=== PATIENT | female | born 1960 | race Caucasian/White ===

== ENCOUNTER 2022-12-25 13:21 | Outpatient (REF) | payer BC, SELFPAY ==
--- NOTE | 2022-12-25 16:48 | MHC.AU.MED ---
Medical Clearance for Hearing Instrumentation Date: 12/25/22 Patient Name: Juliana Boyd Date of : 1960 Primary Care Provider: Referring Provider: Pita Greene MD We have seen your patient on 12/25/22 and have determined that they are a candidate for amplification (See accompanying report). Specifically, they would benefit from: Hearing aid use in the left ear There is a statute that addresses Medical Evaluation Requirements prior to fitting a patient with a hearing aid. According to [place] statute 265 CMR:6.03(1), (a) General. Except as provided in 265 CMR 6.03(1)(b), a claim analyst shall not sell a hearing aid unless the prospective user has presented to the claim analyst a written statement signed by a licensed physician that states that the patient's hearing loss has been medically evaluated and the patient may be considered a candidate for a hearing aid. The medical evaluation must have taken place within the preceding six months. Please note: Due to the [place] Statute referenced above, we cannot accept a signature other than that of a licensed physician. FIRE CONTROL TECHNICIAN and PA signatures cannot be accepted. I am in agreement with the above recommendation. There is no medical contraindication for hearing instrumentation. Physician Signature Date Physician Name (Printed)
--- NOTE | 2023-01-07 08:40 | MHC.AU.HA1 ---
Hearing Aid Evaluation Date of Visit: 12/25/22 Practice Management Consultant Used: Not Applicable Historical Information: Description of Hearing: Right Ear - Normal hearing thresholds 250-8000 Hz Left Ear - Moderate to moderately-severe sensorineural hearing loss Current personal amplification information, if applicable: None Hearing Aid Prescription: Based on the individual?s shared listening needs, communication environments, dexterity, desire for connectivity, and personal preferences, the following prescription for amplification has been made: Right ear: Make, Model, Color: None Left ear: Left ear prescription to be same as Right Hearing Aid above: Make, Model, Color: Phonak Virto P 70-312 Black Battery Size: 312 Environmental Attorney/Slim Tube: Power Plan of Care: Patient wishes to purchase hearing aids as prescribed Action Taken/Action Needed: Earmold Impressions Taken Hearing Instrument Fitting to be scheduled when materials arrive Comments: Patient is going through [facility]. Will send a quote. She may also have insurance coverage. Will verify ROJAS benefits Primary Diagnosis: Z01.11 Encounter for exam of ears/hearing with abnormal findings Secondary Diagnosis: H90.42 SNHL Unilateral Left Side, W/Unrestricted Contralateral Hearing Signature:Provider: Rosa Maria Leigh, [facility]
--- NOTE | 2023-01-07 09:06 | MHC.AU.ANO ---
Adult Audiological Evaluation Date of Visit: 12/25/22 Carbon Paper Coating Supervisor Used: Not Applicable Reason for Appointment: Audiologic evaluation due to decreased left ear hearing ability and tinnitus following open heart surgery. Juliana was evaluated by [facility], [facility], and [facility] since this hearing loss was experienced. She also has a history of Meniere's and BPPV and experiences intermittent dizziness. Juliana is working with [employer] [facility] to obtain a left hearing aid. Does patient feel they have a hearing loss?: Yes If Yes, Which Ear?: Left Ear Has hearing been tested previously?: Yes Previous Hearing Test Results: Left ear - Moderate to moderatley-severe sensorineural hearing loss Right ear - Normal hearing thresholds 250-8000 Hz Hearing Handicap Inventory: HHIE SCORE: 36 Based on HHIE score, patient has: Severe perceived hearing handicap Ear History: Bothersome Tinnitus/Ringing/Noises in Ears: Left Ear Ear used on the phone: Right Ear Blocked/Full Sensation in Ear(s): Both Ears History of occupational noise exposure?: No History: No Medical History: Medical History: Heart Problems, Head Injury, Mumps, Thyroid Disease Allergies: Bactrim, Erythromycin, Sulfa Medication List: Estela, Flonase, Azelastine, Evista, Calcium, Bupropion, Lamictal, Klonopin, Otoscopy: Right Ear: Unremarkable Left Ear: Unremarkable Tympanometry: Tympanometry performed due to: To assess integrity of the middle ear system Right Ear: Hypercompliant Middle Ear System (Type Ad) Left Ear: Normal Middle Ear System (Type A) Hypercompliant Middle Ear System (Type Ad) Acoustic Reflexes: Ipsilateral Probe Right: 500 Hz: Present 1000 Hz: Present 2000 Hz: Present 4000 Hz: Present Probe Left: 500 Hz: Present 1000 Hz: Present 2000 Hz: Present 4000 Hz: Present Otoacoustic Emissions Frequency Range Used: 1.6-8 kHz Right Ear Results: Present 5637-2791 Hz Reduced 1600 and 8000 Hz Analysis: Present emissions suggest normal cochlear function Rules out peripheral hearing loss greater than a mild degree Reduced/absent emissions may be consequence of middle ear dysfunction Left Ear Results: Absent 4785-7467 Hz Analysis: Reduced/Absent emissions suggest cochlear dysfunction Hearing Evaluation: Transducer(s) Used: Insert Earphones Bone Conduction Method: Conventional Audiometry Stimuli Used: Pure Tones Right Ear: Description of Hearing: Normal hearing thresholds 250-8000 Hz with 100% speech understanding at 45 dB HL Left Ear: Description of Hearing: Moderate to moderately-severe sensorineural hearing loss with 56% speech understanding at 80 dB HL Binaural Speech Discrimination ability at 80 dB HL is 96% Comparison: Compared to the most recent evaluation: Hearing is stable. Interpretation of Results: With this unilateral hearing loss, Juliana is able to hear , but have difficulty understanding, particularly when environmental noise is present or when a speaker is talking from a distance, and the right ear is turned away from the sound source. 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 Recommendations: Trial with amplification is recommended. Patient plans to contact [facility]. Medical clearance from a physician is required before fitting. Hearing Aid Fitting will be scheduled when all materials arrive. Audiological re-evaluation in one year. Diagnosis: Primary Diagnosis: Z01.11 Encounter for exam of ears/hearing with abnormal findings Secondary Diagnosis: H90.42 SNHL Unilateral Left Side, W/Unrestricted Contralateral Hearing Services Performed: Comprehensive Audiological Evaluation (CPT 04437) Diagnostic Otoacoustic Emissions (CPT 56934, 26+TC) Tympanometry and Acoustic Reflexes (CPT 23636) Signature: Provider: Rosa Maria Leigh, [facility]
--- NOTE | 2023-01-07 09:15 | MHC.AU.ANO ---
Adult Audiological Evaluation Date of Visit: 12/25/22 Design Printing Machine Set Up Operator Used: Not Applicable Reason for Appointment: Audiologic evaluation due to decreased left ear hearing ability and tinnitus following open heart surgery. Juliana was evaluated by [facility], [facility], and [facility] since this hearing loss was experienced. She also has a history of Meniere's and BPPV and experiences intermittent dizziness. Juliana is working with [employer] to obtain a left hearing aid. Does patient feel they have a hearing loss?: Yes If Yes, Which Ear?: Left Ear Has hearing been tested previously?: Yes Previous Hearing Test Results: Left ear - Moderate to moderatley-severe sensorineural hearing loss Right ear - Normal hearing thresholds 250-8000 Hz Hearing Handicap Inventory: HHIE SCORE: 36 Based on HHIE score, patient has: Severe perceived hearing handicap Ear History: Bothersome Tinnitus/Ringing/Noises in Ears: Left Ear Ear used on the phone: Right Ear Blocked/Full Sensation in Ear(s): Both Ears History of occupational noise exposure?: No History: No Medical History: Medical History: Heart Problems, Head Injury, Mumps, Thyroid Disease Allergies: Bactrim, Erythromycin, Sulfa Medication List: Estela, Flonase, Azelastine, Evista, Calcium, Bupropion, Lamictal, Klonopin, Otoscopy: Right Ear: Unremarkable Left Ear: Unremarkable Tympanometry: Tympanometry performed due to: To assess integrity of the middle ear system Right Ear: Hypercompliant Middle Ear System (Type Ad) Left Ear: Normal Middle Ear System (Type A) Hypercompliant Middle Ear System (Type Ad) Acoustic Reflexes: Ipsilateral Probe Right: 500 Hz: Present 1000 Hz: Present 2000 Hz: Present 4000 Hz: Present Probe Left: 500 Hz: Present 1000 Hz: Present 2000 Hz: Present 4000 Hz: Present Otoacoustic Emissions Frequency Range Used: 1.6-8 kHz Right Ear Results: Present 0954-6243 Hz Reduced 1600 and 8000 Hz Analysis: Present emissions suggest normal cochlear function Rules out peripheral hearing loss greater than a mild degree Reduced/absent emissions may be consequence of middle ear dysfunction Left Ear Results: Absent 5827-2931 Hz Analysis: Reduced/Absent emissions suggest cochlear dysfunction Hearing Evaluation: Transducer(s) Used: Insert Earphones Bone Conduction Method: Conventional Audiometry Stimuli Used: Pure Tones Right Ear: Description of Hearing: Normal hearing thresholds 250-8000 Hz with 100% speech understanding at 45 dB HL Left Ear: Description of Hearing: Moderate to moderately-severe sensorineural hearing loss with 56% speech understanding at 80 dB HL Binaural Speech Discrimination ability at 80 dB HL is 96% Comparison: Compared to the most recent evaluation: Hearing is stable. Interpretation of Results: With this unilateral hearing loss, Juliana is able to hear , but have difficulty understanding, particularly when environmental noise is present or when a speaker is talking from a distance, and the right ear is turned away from the sound source. 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 Trial period with left hearing aid is advised. Recommendations: Trial with amplification is recommended. Patient plans to contact [employer] [facility] [employer]. Medical clearance from a physician is required before fitting. Hearing Aid Fitting will be scheduled when all materials arrive. Audiological re-evaluation in one year. Diagnosis: Primary Diagnosis: Z01.11 Encounter for exam of ears/hearing with abnormal findings Secondary Diagnosis: H90.42 SNHL Unilateral Left Side, W/Unrestricted Contralateral Hearing Services Performed: Comprehensive Audiological Evaluation (CPT 14116) Diagnostic Otoacoustic Emissions (CPT 62346, 26+TC) Tympanometry and Acoustic Reflexes (CPT 98951) Signature: Provider: Rosa Maria Leigh, [facility]
== END 2022-12-25 13:22 | disposition home or self-care (01) ==
LOC: HO.SH 13:21
PROVIDERS: Visit Provider Internal Medicine
DX: Z01.118 Encounter for examination of ears and hearing with other abnormal findings (principal); H90.42 Sensorineural hearing loss, unilateral, left ear, with unrestricted hearing on the contralateral side
CPT/HCPCS: 92550; 92557; 92588

== ENCOUNTER 2023-02-26 13:11 | Outpatient (REF) | payer SELFPAY ==
--- NOTE | 2023-02-26 14:37 | MHC.AU.FU1 ---
Hearing Instrument Follow-Up Date of Visit: 02/26/23 Left Ear: Make, Model, Color, Serial Number: Amanda Vilao P 70-312 SN: [id number] Color: Black History Professor's Repair Warranty: 05/13/2026 History Professor's Loss and Damage Warranty: 05/13/2026 [place] Service Plan: 02/25/2023 Battery Size: 312 Direct Support Specialist/Slim Tube: Power Type of Earmold/Dome/CShell/SlipTip: Type of Wax Guard: CeruStop Dispensed By: [facility] Date of Fittin02/25/23 Follow-Up Summary: Patient seen for remote hearing aid follow up. Discussed tinnitus MASKER is not a Tinnitus BRANNON. It is only noise/soundscapes in attempt to distract from the tinnitus. She reported that she has tried various sounds without success and finds things like fans running in the bathroom maddening. Her tinnitus is more apparent in background noise. She is getting some benefit from the hearing aid but doesn't like it on the phone at all because the signal is distorted (poor discrim). We connected via remote session and I demonstrated the tinnitus masker, selecting a variety of frequencies of pink noise to trial. We settled on one and I have loaded it to a separate program rest with mask to trial. Her automatic programs do not have the TB active. She insists she had a TV and Restaurant program separate from the automatic setting after first fitting. While that is not what the record shows, she is adamant about getting them back. We discussed the importance of listening with the aid and finding out what the holes are before just throwing more programs at it. She was in agreement but has since called back to have them on. We discussed at length appropriate expectations and other ways to manage her reaction to the tinnitus (yoga, CBT) and that the hearing aid wouldn't be a quick, guaranteed fix. I decreased the global volume as she was turning down the volume x2. AFTER initial 1 hr remote session, patient called back stating that I had given her a phone number that was not [place] based and they hung up on her ([employer] Customer support). I conference called [phone] opt 2 and spoke with arborist representative Jay. She wanted the default programs she had deleted put back on the brendan. Jonathan explained the only programs that she can delete would be ones that she created, not the ones modified or put there by the director informatics. She was adamant that was not the case and wanted it back. I suggested that we end the call and reconnect remotely. I removed the tinnitus masker per her request. I then placed 3 additional programs on the hearing aid, outside of the automatic programs. Restaurant, TV, and Music to replicate what I thought she was saying she wanted. I explained that they were ones that were in the automatic program, pulled out to hard wire them in place so she can experiment in those particular settings if she felt she needed to - but that she would have to manually switch back to automatic if she left that setting. She eventually asked me to delete them because she thought I was putting back the defaults and that wasn't what she wanted. I reiterated: 1. The defaults are the same they have been 2. There weren't additional programs saved in the software from the first fitting; confirmed by Ellis 3. She likely deleted items that she herself had created and named. I removed the additional programs and she stated she would be using the automatic program having a better understanding that it truly was automatic and adaptive given the listening situation she was in. There are three different sessions saved under today's date so we can see what was done. Recommendations : Trial hearing aid in automatic setting; <del>use</del> <del>additional</del> <del>program</del> <del>for</del> <del>trial</del> <del>tinnitus</del> <del>masker</del> <del>in</del> <del>noise.</del> Don't worry about stand alone TV, restaurant program until used in real life then we can adjust. Give it time - brain needs time to adapt. Diagnosis Code(s): Primary Diagnosis: H90.42 SNHL Unilateral Left Side, W/Unrestricted Contralateral Hearing Signature: Provider: Rosa Maria Benítez, AMADEO
== END 2023-02-26 13:12 | disposition home or self-care (01) ==
LOC: HO.HAP 13:11
PROVIDERS: Visit Provider Internal Medicine
DX: Z13.89 Encounter for screening for other disorder (principal)

== ENCOUNTER 2023-04-03 09:14 | Outpatient (REF) | payer BC, SELFPAY ==
--- NOTE | 2023-04-06 13:01 | MHC.AU.HA3 ---
Hearing Instrument Follow-Up- Binaural Date of Visit: 04/03/23 Left Ear: Make, Model, Color, Serial Number: Amanda De Jesus P 70-312 SN: [id number] Color: Black Screener And Blender Operator Repair Warranty: 05/13/2026 Screener And Blender Operator Loss and Damage Warranty: 05/13/2026 [facility] Service Plan: 02/25/2023 Battery Size: 312 Co Founder And Cto/Slim Tube: Power Earmold/Dome/CShell/SlimTip: Type of Wax Guard: CeruStop Dispensed By: [facility] Date of Fittin02/25/2023 Follow-Up Summary: Juliana returned for an updated hearing test (see separate report). She has not been using the hearing aid consistently as she experienced a fall and needed immediate trauma surgery on 03/08/2023. She reported that when she did wear it, it reportedly helped; however, she requested that the original settings be restored. Restored settings from initial fit on 02/25/2023. Repaired the hearing aid to her cell phone and [employer] brendan. Confirmed that default programs that come preloaded in the brendan were accessible (i.e., Restaurant, TV, Music). Reexplained acclimatization period and the need to adapt to the base settings of the hearing aids before becoming preoccupied with the details of the brendan. Juliana requested additional follow up be scheduled to monitor her progress. Recommendations: An additional follow-up was scheduled to monitor progress. Diagnosis Code(s): Primary Diagnosis: H90.42 SNHL Unilateral Left Side, W/Unrestricted Contralateral Hearing Signature: Provider: Rosa Maria Estevez, [facility]
== END 2023-04-03 09:15 | disposition home or self-care (01) ==
LOC: HO.SH 09:14
PROVIDERS: Visit Provider Internal Medicine
DX: Z01.118 Encounter for examination of ears and hearing with other abnormal findings (principal); H90.42 Sensorineural hearing loss, unilateral, left ear, with unrestricted hearing on the contralateral side
CPT/HCPCS: 92552; 92556; 92567

== ENCOUNTER 2023-05-04 14:47 | Outpatient (REF) | payer SELFPAY ==
--- NOTE | 2023-05-05 08:10 | MHC.AU.HA3 ---
Hearing Instrument Follow-Up- Binaural Date of Visit: 05/04/23 Left Ear: Make, Model, Color, Serial Number: Amanda De Jesus P 70-312 SN: [id number] Color: Black Thermograph Operator Repair Warranty: 05/13/2026 Thermograph Operator Loss and Damage Warranty: 05/13/2026 [facility] Service Plan: 02/25/2023 Battery Size: 312 Sorter/Assay Tech/Slim Tube: Power Earmold/Dome/CShell/SlimTip: Type of Wax Guard: CeruStop Dispensed By: [facility] Date of Fittin02/25/2023 Follow-Up Summary: Juliana reported that overall she is doing much better with the hearing aid. Data logging showed about 13 hours of use per day. She reported that some times the sound quality is great and other times, it is overwhelming, especially in background noise (e.g., stores, restaurants). Increased noise management settings in ykynqt-[id number]-[id number] and fmdetdt-jr-yueyl programs. Also discussed possible fluctuating hearing loss with diagnosis of Meniere's Disease as well as influence of stress, anxiety, etc on hearing and tinnitus. Juliana reported that she has lost weight and the hearing aid now feels looser in her ear. She does not get excessive feedback and it does not work its way out of her ear at this time. Discussed option for remake; however, Juliana opted to monitor the fit for now. She confirmed the purchase of the hearing aid ([facility]) marking the end of the trial period. Recommendations: Hearing instrument maintenance in 6 months, or sooner if needed. Please contact our clinic with any questions or concerns. Diagnosis Code(s): Primary Diagnosis: H90.42 SNHL Unilateral Left Side, W/Unrestricted Contralateral Hearing Signature: Provider: Rosa Maria Estevez, [facility]
== END 2023-05-04 14:48 | disposition home or self-care (01) ==
LOC: HO.HAP 14:47
PROVIDERS: Visit Provider Internal Medicine
DX: Z13.89 Encounter for screening for other disorder (principal)

== ENCOUNTER 2023-05-07 08:41 | Outpatient (REF) | payer SELFPAY | END 2023-05-07 08:42 | disposition home or self-care (01) | LOC: HO.HAP 08:41 | PROVIDERS: Visit Provider Internal Medicine | DX: Z13.89 Encounter for screening for other disorder (principal) ==

== ENCOUNTER 2023-07-23 13:00 | Outpatient (REF) | payer SELFPAY ==
--- NOTE | 2023-07-27 11:18 | MHC.AU.HA3 ---
Hearing Instrument Follow-Up- Binaural Date of Visit: 07/23/23 Left Ear: Make, Model, Color, Serial Number: Amanda De Jesus P 70-312 SN: [id number] Color: Black Operations Professional Repair Warranty: 05/13/2026 Operations Professional Loss and Damage Warranty: 05/13/2026 [facility] Service Plan: 02/25/2023 Battery Size: 312 Type of Wax Guard: CeruStop Dispensed By: [facility] Date of Fittin02/25/2023 Follow-Up Summary: The volume wheel cover fell off the hearing aid. Called [facility] to confirm - it is just a cover and tactile support for easier use. VC wheel still functions without cover which was confirmed in office. Phonluis enrique offered three solutions - 1. Attempt to reglue cover; however, could risk glue sticking to actual volume wheel itself 2. Send for in-warranty repair 3. Use as is without cover. Juliana opted to use as is for now as she reportedly rarely uses the volume wheel and most often changes the volume through the brendan. Juliana has the volume wheel cover to keep for now. She also reported that she has been getting more feedback than usual and the hearing aid is still not fitting properly in her ear. It feels too loose and as if it is being pushed out of her ear. Otoscopy revealed significant, non-occluding cerumen in left ear. Recommended cerumen removal. Juliana will contact her PCP for wax removal. Following wax removal, she will schedule an appointment for an ear mold impression as she now wants to send the hearing aid to [facility] to be recased (will get VC wheel cover fixed at that time as well). She inquired about a loaner during that time. Advised could fit RITE with dome, if needed. Recommendations: Juliana will schedule an appointment for YAMIL following wax removal Diagnosis Code(s): Primary Diagnosis: H90.42 SNHL Unilateral Left Side, W/Unrestricted Contralateral Hearing Secondary Diagnosis: H90.42 SNHL Unilateral Left Side, W/Unrestricted Contralateral Hearing Signature: Provider: Rosa Maria Estevez, [facility]
== END 2023-07-23 13:01 | disposition home or self-care (01) ==
LOC: HO.HAP 13:00
PROVIDERS: Visit Provider Internal Medicine
DX: Z13.89 Encounter for screening for other disorder (principal)

== ENCOUNTER 2023-07-30 08:57 | Outpatient (REF) | payer SELFPAY ==
--- NOTE | 2023-07-30 14:29 | MHC.AU.HA3 ---
Hearing Instrument Follow-Up- Binaural Date of Visit: 07/30/23 Left Ear: Make, Model, Color, Serial Number: Amanda De Jesus P 70-312 SN: [id number] Color: Black Hearing Screener Repair Warranty: 05/13/2026 Hearing Screener Loss and Damage Warranty: 05/13/2026 [facility] Service Plan: 02/25/2023 Battery Size: 312 Resource Room Teacher/Slim Tube: Power Type of Wax Guard: CeruStop Dispensed By: [facility] Date of Fittin02/25/2023 Follow-Up Summary: Juliana returned following cerumen removal at her PCP's office. She now wants her hearing aid re-cased as it is reportedly not fitting well anymore. It is too loose causing feedback, moves in her ear, and some times feels as though it is being pushed out of her ear. However, fit looks good in office. Impression taken of left ear without incident. Sent impression with hearing aid to [facility] to be re-cased. Also sent volume wheel cover to be repaired. Juliana also reported high battery drain with one battery lasting 2-3 days, which was noted on the repair form. Juliana requested a loaner. Programmed an [employer] M90-312 trial device with a 2M hot plate plywood press feeder and small power dome. Reportedly comfortable and no feedback in office. Advised sound quality and physical fit will be different but should allow her some amplification while hearing aid is out for repair. She inquired about pairing loaner to cellphone and advised likely better to forgo bluetooth connection with loaner for now. Recommendations: Patient will be contacted when materials have arrived. Recommendations (Other): Will need appointment to assess fit of remade hearing aid upon arrival Diagnosis Code(s): Primary Diagnosis: H90.42 SNHL Unilateral Left Side, W/Unrestricted Contralateral Hearing Signature: Provider: Rosa Maria Estevez, [facility]
== END 2023-07-30 08:58 | disposition home or self-care (01) ==
LOC: HO.HAP 08:57
PROVIDERS: Visit Provider Internal Medicine
DX: Z13.89 Encounter for screening for other disorder (principal)

== ENCOUNTER 2023-08-20 13:52 | Outpatient (REF) | payer SELFPAY ==
--- NOTE | 2023-08-21 13:19 | MHC.AU.HA3 ---
Hearing Instrument Follow-Up- Binaural Date of Visit: 08/20/23 Left Ear: Make, Model, Color, Serial Number: Amanda De Jesus P 70-312 SN: [id number] Color: Black Aegis Operations Specialist Repair Warranty: 05/13/2026 Aegis Operations Specialist Loss and Damage Warranty: 05/13/2026 [facility] Service Plan: 02/25/2023 Battery Size: 312 Special Forces Weapons Sergeant/Slim Tube: Power Type of Wax Guard: CeruStop Dispensed By: [facility] Date of Fittin02/25/2023 Follow-Up Summary: Juliana returned to pick up attendant her remade hearing aid. However, she immediately rejected the hearing aid due to its size. She was insistent that it was bigger than the original device, is now too difficult to insert, and feels too bulky in her ear. She reported the faceplate is larger and the original hearing aid did not fill as much of the stormy bowl. She felt that it stuck out too far and the volume wheel was not in the proper place. She is concerned that she will bump the volume wheel too often when inserting/removing the hearing aid causing it to break again. Advised that it was originally sent to be remade as she previously reported it was too loose; however, Juliaan recalls that it was sent out for the broken volume wheel and could not remember the other reason. Explained that fit of the hearing aid looked appropriate from an audiological standpoint. However, Juliana opted to send the hearing aid back to [employer] for another remake. Juliana and her took pictures of this hearing aid in her ear to remember the size and how it fits. She also took a picture of the [employer] for All visual which shows pictures of the different style hearing aids on an ear. She kept the loaner hearing aid, but asked for a smaller dome because she felt the current power dome was not directed down her ear canal properly. Discussed need for larger dome to minimize feedback. Switched to medium closed dome. Juliana had some difficulty inserting the dome in office; however, once fully inserted, no feedback noted. Recommendations: Patient will be contacted when materials have arrived. Diagnosis Code(s): Primary Diagnosis: H90.42 SNHL Unilateral Left Side, W/Unrestricted Contralateral Hearing Signature: Provider: Rosa Maria Estevez, [facility]
== END 2023-08-20 13:53 | disposition home or self-care (01) ==
LOC: HO.HAP 13:52
PROVIDERS: Visit Provider Internal Medicine
DX: Z13.89 Encounter for screening for other disorder (principal)

== ENCOUNTER 2023-08-21 14:15 | Outpatient (REF) | payer SELFPAY ==
--- NOTE | 2023-08-21 15:54 | MHC.AU.HA3 ---
Hearing Instrument Follow-Up- Binaural Date of Visit: 08/21/23 Left Ear: Make, Model, Color, Serial Number: Amanda De Jesus P 70-312 SN: [id number] Color: Black Green Building Materials Distributor Repair Warranty: 05/13/2026 Green Building Materials Distributor Loss and Damage Warranty: 05/13/2026 [facility] Service Plan: 02/25/2023 Battery Size: 312 Operations General Agent/Slim Tube: Power Earmold/Dome/CShell/SlimTip: Type of Wax Guard: CeruStop Dispensed By: [facility] Date of Fittin02/25/2023 Follow-Up Summary: Migel was scheduled for a same-day appointment as a walk-in. I was in an appointment with another patient and noticed her repeatedly coming to the window and looking in, and heard her loudly speaking in the hallway. When my appointment ended 15 minutes early she asked if I was the one who was supposed to see her, I let her know I would go check the schedule as I was not aware anyone was added on and it was still 15 minutes before the time she reported she was scheduled for. I promptly brought her in once I confirmed her appointment was with me. She was extremely upset about her hearing aid needing to be remade and was crying, stating we should have better quality compliance manager as professionals and should have known the hearing aid was too large. She was also very upset because her tested positive for COVID this morning and is concerned she will soon test positive as well. I have never seen Migel so was not familiar with her hearing aid remakes, but commented that we do not know exactly how a hearing aid will fit until we actually see it in the ear. She showed me a few photos on her phone of the remake that she was unhappy with. Notes she called Amanda to complain. The reason for her visit today was to have a different dome put on her loaner EB, as she reportedly experienced feedback with the closed dome put on yesterday, and was also unhappy that the metal of the fly maker box was visible at the opening of the dome. I changed it to a small power dome, which she was able to insert without issue, no audible feedback. She wanted to try a medium power dome as well, which she was not able to insert comfortably, so we changed it back to a small. She had a harder time inserting it than she initially did, but after a few breaths was able to relax and successfully insert, no audible feedback. She noted her voice seemed echo-y but recalled her told her that is normal when acclimating to a hearing aid, which I agreed with. Apologized for the frustration she has experienced with this process, she seemed to leave the office feeling more reassured about the hearing aid but was still extremely upset regarding the COVID situation she is dealing with at home. Recommendations: Recommendations: Patient will be contacted when materials have arrived. Diagnosis Code(s): Primary Diagnosis: H90.3 Bilateral Sensorineural Hearing Loss Secondary Diagnosis: H90.42 SNHL Unilateral Left Side, W/Unrestricted Contralateral Hearing Signature: Provider: Tessy Love, CCC-A
== END 2023-08-21 14:16 | disposition home or self-care (01) ==
LOC: HO.HAP 14:15
PROVIDERS: Visit Provider Internal Medicine
DX: Z13.89 Encounter for screening for other disorder (principal)

== ENCOUNTER 2023-09-09 11:32 | Outpatient (REF) | payer SELFPAY ==
--- NOTE | 2023-09-09 12:56 | MHC.AU.HA3 ---
Hearing Instrument Follow-Up- Binaural Date of Visit: 09/09/23 Left Ear: Make, Model, Color, Serial Number: Amanda De Jesus P 70-312 SN: [id number] Color: Black Manager File Repair Warranty: 05/13/2026 Manager File Loss and Damage Warranty: 05/13/2026 [facility] Service Plan: 02/25/2023 Battery Size: 312 City Solicitor/Slim Tube: Power Earmold/Dome/CShell/SlimTip: Type of Wax Guard: CeruStop Dispensed By: [facility] Date of Fittin02/25/2023 Follow-Up Summary: Juliana was scheduled to medicinal plant picker her remade left hearing aid. I was in the room when Yana scheduled her appointment on the phone, and she offered her appointments with both Ellis and I since she has seen both of us recently, and Yana confirmed with her that the appointment she selected was with me. When I went to get Migel from the waiting room she was crying, and when I said nicole she said No, I wanted to see Tita! -- I told her I was Tita, and she said she wanted to see the person she usually sees, meaning Ellis. She did later acknowledge that she was confused about who was who and she was upset when she walked in because she had a bad physical therapy appointment earlier today. I asked if she wanted to put it in or wanted me to, but she looked at the remade hearing aid and said f it , that it was too fat and short and began crying, saying she just wanted her original hearing aid back. She put the aid in and said it was not going to work. I called Amanda in the room with Juliana and the production rep agreed to remake the hearing aid based on the original impression/print. Juliana took her loaner back, asked about an open dome but I told her that would not be appropriate for her hearing loss. She is going back to work tomorrow and is anxious to get her ITC back so it does not get knocked off by the mask like the EB does. Assured her we will call her as soon as we can, she requested to see me moving forward. Recommendations: Recommendations: Patient will be contacted when materials have arrived. Diagnosis Code(s): Primary Diagnosis: H90.42 SNHL Unilateral Left Side, W/Unrestricted Contralateral Hearing Signature: Provider: Tessy Love, CCC-A
== END 2023-09-09 11:33 | disposition home or self-care (01) ==
LOC: HO.HAP 11:32
PROVIDERS: Visit Provider Internal Medicine
DX: Z13.89 Encounter for screening for other disorder (principal)

== ENCOUNTER 2023-09-23 11:28 | Outpatient (REF) | payer SELFPAY ==
--- NOTE | 2023-09-23 13:54 | MHC.AU.HA3 ---
Hearing Instrument Follow-Up- Binaural Date of Visit: 09/23/23 Left Ear: Make, Model, Color, Serial Number: Amanda De Jesus P 70-312 SN: [id number] Color: Black Sheetmetal Patternmaker Repair Warranty: 05/13/2026 Sheetmetal Patternmaker Loss and Damage Warranty: 05/13/2026 [facility] Service Plan: 02/25/2023 Battery Size: 312 Car Seat Maker/Slim Tube: Power Earmold/Dome/CShell/SlimTip: Type of Wax Guard: CeruStop Dispensed By: [facility] Date of Fittin02/25/2023 Follow-Up Summary: Noelle was here to sweet pickled fruit maker her remade left hearing aid. I spoke with her two days ago when she called to report the loaner was beeping randomly and let her know the aid had just arrived and we'd schedule her appointment to receive it as soon as I verified it was correct, to which she said no aguilar and she was ok with the loaner until sweet pickled fruit maker of the remake. Prior to her appointment, I called Bertoluis enrique to verify that the remake was indeed made identical to the initial printing of her hearing aid. The Audiology rep I spoke with called the appropriate department and they superimposed the two scans on top of one another and reported they were identical. Noelle seemed pleased with the fit today. I verified her settings were those from prior to the remakes and ran feedback management. She asked if we needed to do Real Ear, I told her we did not as there was no change to her hearing or settings. She re-downloaded her brendan and was able to connect it to the hearing aid herself. We discussed her scheduled appointment for 11/02; she thought it was a ROJAS check and that she had cancelled it, I offered to change it from eval to ROJAS check or cancel if she didn't feel she needed it, but she would like to keep it as an eval and also do a ROJAS check at that time. She seemed satisfied with the hearing aid remake and the plan to return next month when leaving the office today. Recommendations: Recommendations: Hearing instrument follow-up as scheduled. Diagnosis Code(s): Primary Diagnosis: H90.42 SNHL Unilateral Left Side, W/Unrestricted Contralateral Hearing Signature: Provider: Tessy Love, CCC-A
== END 2023-09-23 11:29 | disposition home or self-care (01) ==
LOC: HO.HAP 11:28
PROVIDERS: Visit Provider Internal Medicine
DX: Z13.89 Encounter for screening for other disorder (principal)

== ENCOUNTER 2023-11-03 15:08 | Outpatient (REF) | payer BC, SELFPAY | END 2023-11-03 15:09 | disposition home or self-care (01) | LOC: HO.SH 15:08 | PROVIDERS: Visit Provider Internal Medicine | DX: H91.90 Unspecified hearing loss, unspecified ear (principal) | CPT/HCPCS: 92552; 92556 ==

== ENCOUNTER 2024-02-11 13:51 | Outpatient (REF) | payer SELFPAY ==
--- NOTE | 2024-02-12 08:29 | MHC.AU.HA3 ---
Hearing Instrument Follow-Up- Binaural Date of Visit: 02/11/24 Left Ear: Make, Model, Color, Serial Number: Amanda De Jesus P 70-312 SN: [id number] Color: Black Bracelet Maker Novelty Repair Warranty: 05/13/2026 Bracelet Maker Novelty Loss and Damage Warranty: 05/13/2026 [facility] Service Plan: 02/25/2023, extended to 03/28/2023 per KG Battery Size: 312 Mental Health Therapist/Slim Tube: Power Earmold/Dome/CShell/SlimTip: Type of Wax Guard: CeruStop Dispensed By: [facility] Date of Fittin02/25/2023 Follow-Up Summary: Migel visited for a hearing aid check prior to her [facility] covered services ending 02/26/24. She requested her services be extended a few months because when she first got her hearing aid she was in the hospital and then had to have several remakes, notes she might not need additional services but feels she should have them just in case and states she has already been in contact with Nohemy about this. I messaged Nohemy while Migel was here, able to extend services one month 03/28/24. Migel agreeable. She notes that the popping from 12/09 phone call has not happened again, but one time she heard the start-up beeps randomly. No other consistent issues reported. Cleaned hearing aid, ran through dehumidifier, replaced wax guard. Listening check ok, settings appropriate on [employer]. Otoscopy nonremarkable bilaterally. Assured Migel if aid restarting becomes recurrent issue we can send it out at any time. Discussed end of instrument man warranty vs end of services, aware that $50 charge will apply after service plan expires. She notes [employer] will cover unlimited hearing tests, discussed that annual tests are standard recommendation unless a new concern arises sooner. Migel noted that her hearing has steadily decreased over the last several tests, I maintained that her hearing has been stable, as we have discussed this several times. Migel agreed to return for updated test in October, a year from her last test, and knows hearing aid cleaning will be $50 even if [employer] covers the exam itself. Did not schedule additional follow up in interim. Recommendations: Recommendations: Hearing instrument follow-up or maintenance as needed. Diagnosis Code(s): Primary Diagnosis: H90.42 SNHL Unilateral Left Side, W/Unrestricted Contralateral Hearing Signature: Provider: Tessy Love, CCC-A
== END 2024-02-11 13:52 | disposition home or self-care (01) ==
LOC: HO.HAP 13:51
PROVIDERS: Visit Provider Internal Medicine
DX: Z13.89 Encounter for screening for other disorder (principal)

== ENCOUNTER 2024-03-23 11:36 | Outpatient (REF) | payer SELFPAY ==
--- NOTE | 2024-03-23 12:48 | MHC.AU.HA3 ---
Hearing Instrument Follow-Up- Binaural Date of Visit: 03/23/24 Left Ear: Make, Model, Color, Serial Number: Amanda De Jesus P 70-312 SN: [id number] Color: Black Bed Bug Exterminator Repair Warranty: 05/13/2026 Bed Bug Exterminator Loss and Damage Warranty: 05/13/2026 [facility] Service Plan: 02/25/2023, extended to 03/28/2023 per KG Battery Size: 312 Tower Technician/Slim Tube: Power Earmold/Dome/CShell/SlimTip: Type of Wax Guard: CeruStop Dispensed By: [facility] Date of Fittin02/25/2023 Follow-Up Summary: Migel is here for a final check on her hearing aid before her service plan expires, which had been extended 1 month per Nohemy at Migel's request due to being in the hospital and needing remakes after initial fitting. Migel states you get what you pay for in reference to getting the hearing aid for free through [facility]; I stated that I believe this to be a great quality device and we have many people who are fit with the same technology level, regardless of it being through [facility] or not. She said because her parents sold hearing aids she knows the brand is fine (mentioned something about Reina?) but this specific mold for her and her hearing loss is difficult to angle into her ear but that she does not want to send it in again. She said the part I told her was the vent is actually the scientist immunology (see previous voicemail note), I showed her with a vent can cleaner that it does indeed run from one end to the other and that the scientist immunology is inside of the hearing aid. She asked how it can receive sound if it is inside of the hearing aid, I explained the microphone placement and reviewed how to clean them and provided a backup brush as well as a vent can cleaner. She is familiar with changing wax guards. Migel asked what I had mentioned previously about being able to do something more than cleaning in office without sending it out-- I believe she is referring to verifying her firmware is up to date. Cleaned the aid, ran through dehumidifier, changed wax guard, and brushed mics. Listening check ok. Checked settings and firmware in [employer], all looks as it should. Otoscopy shows small amounts of nonoccluding wax bilaterally. Migel reported improved sound quality after cleaning. Migel said she will start cleaning aid weekly, I mentioned that some people like to stay on a schedule with changing wax guards such as once a month and others will only change as needed based on sound quality, that decision is up to her, but she is aware of how to clean aids properly at home and has needed tools. Reviewed java golden gate developer warranty date, loss and damage policy, and that services here will cost $50 moving forward. She asked what will happen if she gains or loses 100 lbs and it does not fit anymore, let her know that I do not believe a recasing would be covered under warranty and if that were to happen there would likely be a cost. She asked if she can come in for a hearing test and not pay anything, I let her know that the hearing test would be subject to her insurance plan and if we do anything with the hearing aid that will cost $50. She does not wish to schedule any follow up at this time but plans to return for an annual hearing test in October. Recommendations: Recommendations: Hearing instrument follow-up or maintenance as needed. Diagnosis Code(s): Primary Diagnosis: H90.42 SNHL Unilateral Left Side, W/Unrestricted Contralateral Hearing Signature: Provider: Tessy Love, [facility]
== END 2024-03-23 11:37 | disposition home or self-care (01) ==
LOC: HO.HAP 11:36
PROVIDERS: Visit Provider Internal Medicine
DX: Z13.89 Encounter for screening for other disorder (principal)

== ENCOUNTER 2024-11-07 09:34 | Outpatient (REF) | payer BC, SELFPAY ==
--- OUTSIDE RECORDS SUMMARY | 2024-11-07 10:39 | XMS_ITS | Clinical Summary ---
Author Organization [facility] [address] [facility] [address] Address [address] [place] [address] Phone Care Team Providers Care Special Education Associate Name Role Phone Pita Greene MD Primary Care Provider [phone] Encounters Date Type Department Care Team Description 09/21/2024 Telephone Gastroenterology - [address] [phone] Camila Rosado MD from Last 3 Months Social History Tobacco Use Types Packs/Day Years Used Date Smoking Tobacco: Never Assessed Comments Unknown Sex and Gender Information Value Date Recorded Sex Assigned at Not on file Legal Sex Female 8:27 PM EST Gender Identity Not on file Sexual Orientation Not on file Plan of Treatment Upcoming Encounters Date Type Department Care Team ([facility] st Contact Info) Description 11/29/2024 10:20 AM EDT Consult Gastroenterology - [address] [place] [phone] Camila Rosado MD [address] [place] [id number] Health Maintenance Due Date Last Done Comments Breast Cancer Screening 1962 DTaP,Tdap,and Td Vaccines (1 - Tdap) 1981 Cervical Cancer Screening: P ap Smear 1983 Pneumococcal Vaccine: 50+ Ye ars (1 of 1 - PCV) 01/16/2012 Zoster Vaccines (1 of 2) 01/16/2012 Colorectal Cancer Screening: Colonoscopy 08/07/2023 Depression Screening 08/07/2023 HIV Screening 08/07/2023 Hepatitis C Screening 08/07/2023 Social Influencers of Health Screening 08/07/2023 COVID-19 Vaccine ( - 2023-2 5 season) 2024 Influenza Vaccine (Season Ended) 2025 RSV Immunization Adult Patie nts (1 - 1-dose 75+ series) 2037 HIB Vaccines Aged Out No longer eligi ble based on patient's age to complete this topic HPV Vaccines Aged Out No longer eligi ble based on patient's age to complete this topic Hepatitis A Vaccines Aged Out No long er eligible based on patient's age to complete this topic Hepatitis B Vaccines Aged Out No long er eligible based on patient's age to complete this topic IPV Vaccines Aged Out No longer eligi ble based on patient's age to complete this topic MMR Vaccines Aged Out No longer eligi ble based on patient's age to complete this topic Meningococcal ACWY Vaccine Aged Out N o longer eligible based on patient's age to complete this topic Meningococcal B Vaccine Aged Out No l onger eligible based on patient's age to complete this topic Pneumococcal Vaccine: Pediat rics (0 to 5 Years) and At-Risk Patients (6 to 64 Years) Aged Out No longer eligible b ased on patient's age to complete this topic RSV Immunization Patients Un izabela 20 months Aged Out No longer eligible b ased on patient's age to complete this topic Varicella Vaccines Aged Out No longer eligible based on patient's age to complete this topic Insurance [facility] [place] [id number] [facility] Care Teams Special Education Associate Relationship Specialty Start Date End Date Pita Greene MD [address] [place] [address] PCP - General Internal Medicine 09/21/24
== END 2024-11-07 09:35 | disposition home or self-care (01) ==
LOC: HO.SH 09:34
PROVIDERS: Visit Provider Internal Medicine
DX: Z01.118 Encounter for examination of ears and hearing with other abnormal findings (principal); H90.42 Sensorineural hearing loss, unilateral, left ear, with unrestricted hearing on the contralateral side
CPT/HCPCS: 92552; 92556

== ENCOUNTER 2024-11-07 10:33 | Outpatient (REF) | payer SELFPAY ==
--- OUTSIDE RECORDS SUMMARY | 2024-11-07 12:26 | XMS_ITS | Clinical Summary ---
Author Organization [facility] [address] [facility] [address] Address [address] [place] [address] Phone Care Team Providers Care Credit Representative Name Role Phone Pita Greene MD Primary Care Provider [phone] Encounters Date Type Department Care Team Description 09/21/2024 Telephone Gastroenterology - [address] [phone] Camila Rosado MD from Last 3 Months Social History Tobacco Use Types Packs/Day Years Used Date Smoking Tobacco: Never Assessed Comments Unknown Sex and Gender Information Value Date Recorded Sex Assigned at Not on file Legal Sex Female 8:27 PM EST Gender Identity Not on file Sexual Orientation Not on file Plan of Treatment Upcoming Encounters Date Type Department Care Team ([facility] st Contact Info) Description 11/29/2024 10:20 AM EDT Consult Gastroenterology - [address] [place] [phone] Camila Rosado MD [address] [place] [phone] Health Maintenance Due Date Last Done Comments [...] patient's age to complete this topic Insurance [facility] [place] [id number] [facility] Care Teams Credit Representative Relationship Specialty Start Date End Date Pita Greene MD [address] [place] [phone] PCP - General Internal Medicine 09/21/24
--- NOTE | 2024-11-07 14:00 | MHC.AU.HA3 ---
Hearing Instrument Follow-Up- Binaural Date of Visit: 11/07/24 Left Ear: Make, Model, Color, Serial Number: Amanda De Jesus P 70-312 SN: [id number] Color: Black Bee Producer Repair Warranty: 05/13/2026 Bee Producer Loss and Damage Warranty: 05/13/2026 [facility] Service Plan: 02/25/2023, extended to 03/28/2023 per KG Battery Size: 312 Dry Can Tender/Slim Tube: Power Earmold/Dome/CShell/SlimTip: Type of Wax Guard: CeruStop Dispensed By: [facility] Date of Fittin02/25/2023 Follow-Up Summary: Migel visited for annual evaluation (hearing stable, see audiogram). When initially asked if she had concerns about a change in hearing, she said no but the hearing aid sucks . She stated she needs an ITE, sometimes finds if she pushes on the top of the hearing aid ( I make it an ITE , indicating she fills the remaining space in her stormy with her finger) she can hear people better, particularly someone she plays cards with who has a high pitched voice. Reports she does not like the brendan, found the [employer] brendan she had with [employer] hearing aids much easier to use. Notes she goes through batteries quickly, unsure of how many days, does remove battery sticker and let sit prior to use, finds Rayovac the best but mostly uses [employer]. Reports she went to [facility] for wax removal and had a hearing test there, did not get results but states they were stable with what they had on file. Also reports a middle ear infection many months ago, right ear, treated with Augmentin, she believes by PCP. Hearing stable, reviewed results. Significant improvement in left WRS today. She inquired about tympanometry, explained only test what is medically necessary and given stable hearing and no current concerns regarding middle ear I did not feel this was necessary unless she had concerns, none reported. We reviewed that ROJAS service would cost $50 out of [facility] service coverage, Migel would like hearing aid cleaned and agreed to cost. Changed wax guard, cleaned mics, ran through dehumidifier, and cleaned small amount of wax from shell. Listening check ok. Settings appropriate for hearing loss, Migel does not want adjustments to settings at this time. She opened the brendan and noted it had changed since the last time she used it so will experiment with it to see if she likes it better now. She asked if hearing can improve from hearing aid use, stated I do not expect improvements on an audiogram but amplification can help keep neural pathways strong. She asked about study published on hearing loss and dementia, discussed that there are connections between untreated hearing loss and cognitive change that we are still learning about, concern of social isolation as a result of untreated hearing loss, but current understanding is not that hearing loss is a direct cause of dementia. Migel wishes to return for annual re-evaluation and maintenance, understands she will need new PCP order, and will call if issues arise between now and then. Recommendations: Recommendations: Hearing instrument follow-up or maintenance as needed. Diagnosis Code(s): Primary Diagnosis: H90.42 SNHL Unilateral Left Side, W/Unrestricted Contralateral Hearing Signature: Provider: Tessy Love, CCC-A
== END 2024-11-07 10:34 | disposition home or self-care (01) ==
LOC: HO.HAP 10:33
PROVIDERS: Visit Provider Internal Medicine
DX: Z46.1 Encounter for fitting and adjustment of hearing aid (principal); H90.42 Sensorineural hearing loss, unilateral, left ear, with unrestricted hearing on the contralateral side
CPT/HCPCS: 92592

== ENCOUNTER 2025-03-22 10:08 | Outpatient (REF) | payer SELFPAY ==
--- OUTSIDE RECORDS SUMMARY | 2025-03-22 12:18 | XMS_ITS | Encounter Summary ---
Author Organization [facility] Address [address] [place] [address] Phone Care Team Providers Care Spar Machine Operator Name Role Phone Pita Greene MD Primary Care Provider [phone] Ty Lilly MD Unavailable [phone] Papito Izaguirre MD Unavailable [phone] Reason for Referral * MRI/CAT Scan (Emergency) - Closed Specialty Diagnoses / Procedures Referred By Leatha jose Referred To Contact Radiology Diagnoses Preop cardiovascular exam Procedures CT Cardiac CT Angio Coronary Arteries CHG CT ANGIO HRT CORNRY ART/BYPASS GRFTS CONTRST 3D POST CHG CT HEART CONTRAST EVAL CARDIAC STRUCT/MORPH Anca Rice FNP Phone: tel: fax: mailto:[email or web address] [address] Phone: tel: Referral ID Status Reason Start Date Expiration Date Visits Re quested Visits Authorized [id number] Closed 02/03/2022 03/05/2022 1 1 Encounter Details Date Type Department Care Team (Latest Contact Info) Description 02/03/2022 Ancillary Orders [facility] Division of Cardiac Surgery [address] [place] [address], 6th Floor, [address] [place] [address] Anca Rice FNP [address] [place] [address] [address] [place] [address] [email or web address] Preop cardiovascular exam Social History Tobacco Use Types Packs/Day Years Used Date Smoking Tobacco: Never Smokeless Tobacco: Never Alcohol Use Standard Drinks/Week Comments Yes 0 (1 standard drink = 0.6 oz pur e alcohol) rare/social Comments Unknown Sex and Gender Information Value Date Recorded Sex Assigned at Female 06/07/2022 12:42 PM EST Legal Sex Female 10:34 PM EDT Gender Identity Female 06/07/2022 12:42 PM EST Sexual Orientation Straight 06/07/2022 12 :42 PM EST documented as of this encounter Plan of Treatment Upcoming Encounters Date Type Department Care Team (Late st Contact Info) Description 12/26/2024 Procedure Pass [facility] Cardiac US [address] [place] [address] 03/14/2025 Procedure Pass [address] [address] 04/05/2025 8:00 AM EDT Appointment [address] [address] Delia Reyes MD [address] [place] [address] [email or web address] 05/30/2025 3:30 PM EST Office Visit [facility] [address] [place] [address], 2nd Floor, [address] [place] [address] Delia Reyes MD [address] [place] [address] [address] [place] [address] [email or web address] 01/08/2026 1:30 PM EDT Appointment [facility] Cardiac US [address] [place] [address] Papito Izaguirre MD [address] [place] [address] [address] [email or web address] 01/08/2026 3:00 PM EDT Office Visit [facility] Cardiovascular Medicine [address] [facility], 5th Floor, [address] [place] [address] Papito Izaguirre MD [address] [address] [email or web address] documented as of this encounter Results * CT CARDIAC (PRACHI) WITH AND WITHOUT CONTRAST, CT ANGIO ABDOMEN/PELVIS WITH AND WITHOUT CONTRAST (02/03/2022 3:00 PM EDT) Anatomical Region Laterality Modality Heart Computed Tomogra phy 02/03/2022 4:18 PM EDT Impressions 02/04/2022 8:49 AM EDT * 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 * CAD-RADS 0: No plaque nor stenosis. * Qualitatively preserved left ventricular systolic function. * Patent aorta and iliac arteries are not tortuous and are without circumferential calcifications. 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 * Minimal luminal diameter is 6.7 mm in the right iliac system and 7.3 mm in the left iliac system. Minimal aortic diameter is 15.2 mm. * Bulky heterogeneously enhancing uterus. RECOMMENDATIONS: 1. CAD-RADS management guidelines for symptomatic patients presenting with stable chest pain: CAD-RADS 0 - Reassurance. Consider non- atherosclerotic causes of chest pain. 2. Pelvic ultrasound to evaluate uterus. This report has been forwarded to an automated communication system which will electronically notify appropriate providers of potentially important findings. Narrative 02/04/2022 8:49 AM EDT ECG-GATED CARDIAC AND ABDOMINOPELVIC CTA WITH AND WITHOUT IV CONTRAST. COMPARISON: None ADDITIONAL HISTORY: None available at the time of dictation of this report. TECHNIQUE: ECG-gated cardiac CT with concomitant abdominopelvic CT angiography was performed pre and post contrast for planning of transcatheter percutaneous valve implantation. A delayed scan was performed of the chest, abdomen, and pelvis. Contrast was administered via power injection, followed by a saline flush, as per the image record. 3D postprocessed images were reconstructed and interpreted. FINDINGS: CARDIAC FINDINGS: Mitral valve: Sclerotic mitral valve. There is prolapse of the posterior leaflet of the mitral valve with incomplete coaptation compatible with mitral regurgitation. There is no mitral annular calcification. No aortic mitral continuity calcification. Aortic valve: Tricuspid trileaflet sclerotic valve without modifications. CARDIAC MORPHOLOGY AND FUNCTION: The left atrium is enlarged measuring 49 mm in AP diameter. Right atrial enlargement. There are no thrombi in the left ventricle. There are no regional wall motion abnormalities. No evidence of pericardial effusion. No bypass grafts are identified. RAMONA CORONARY ARTERIES: There is no evidence for anomalous coronary artery origin or course. There is right artery dominance. * Left Main (LM): no plaque; no luminal narrowing. The left main bifurcates into LAD and LCx. * Left anterior descending (LAD): no plaque; no luminal narrowing. Two patent diagonal (D) branch(es) identified. The distal LAD wraps around the apex. * Left circumflex (LCx): no plaque; no luminal narrowing. Two patent obtuse marginal (OM) branches identified. * Right coronary artery (RCA): no plaque; no luminal narrowing. The posterior descending artery (PDA) and the posterior left ventricular (PLV) branches originate from the RCA. CALCIUM SCORE: The observed Agatston Calcium Score is 0. VASCULAR FINDINGS: There is no evidence of a flap within the aorta to suggest thoracic or abdominal aortic dissection. There is a left 3 vessel aortic arch. The visualized innominate, subclavian, and carotid arteries are patent. There is an aberrant origin of right subclavian artery from the distal arch with a retroesophageal course. No evidence of diverticulum of Kommerell. There are no occlusions of the abdominal aorta, iliac arteries, or femoral arteries. There is no evidence of significant kinking of the abdominopelvic vessels. There is no evidence of circumferential calcifications. The celiac artery, superior mesenteric artery, and inferior mesenteric artery are patent. There are two right and one left patent renal arteries. Minimal arterial luminal diameters are as follows: Aorta: 15.2 mm x 15.9 mm. Right common iliac artery: 9.9 mm x 10.7 mm Right external iliac artery: 6.7 mm x 7.4 mm Right common femoral artery: 8.4 mm x 8.9 mm Left common iliac artery: 9.6 mm x 11.2 mm Left external iliac artery: 7.6 mm x 8.5 mm Left common femoral artery: 7.3 mm x 8.7 mm No venous thrombosis. NON-VASCULAR FINDINGS: Evaluation of visceral organs is not optimal due to vascular protocol technique and contrast timing. Lines/tubes : None Lungs and Airways: The central airways are patent. There is minimal atelectasis in the dependent portions of the lungs. Pleura: The pleural spaces are clear. Mediastinum: The visualized thyroid gland shows subcentimeter hypodensities likely cysts. Small hiatal hernia. There is no mediastinal, hilar, or supraclavicular lymphadenopathy. The main pulmonary artery is normal in caliber. Although contrast opacification was not optimized for pulmonary artery evaluation, there is no evidence of central filling defect. Hepatobiliary: Subcentimeter simple cyst in the left lobe of liver. No biliary ductal dilatation. The gall bladder is normal. Spleen: No splenomegaly. Pancreas: No focal masses or ductal dilatation. Adrenals: No adrenal nodules. Kidneys/ureters: No hydronephrosis, or solid mass lesions. 3 mm nonobstructive calculus in the interpolar region of right kidney. Pelvic organs/bladder: Heterogeneous enhancement of the bulky uterus which is incompletely characterized on this study. Peritoneum/retroperitoneum: No free air or fluid. Abdominal Lymph nodes: No lymphadenopathy. GI tract: There are no dilated loops of bowel to suggest obstruction. There is no bowel wall thickening. Bones and soft tissues: No osseous destructive lesion seen. Procedure Note Faisal Friedman MD - 02/04/2022 ECG-GATED CARDIAC AND ABDOMINOPELVIC CTA WITH AND WITHOUT IV CONTRAST. COMPARISON: None ADDITIONAL HISTORY: None available at the time of dictation of thisreport. TECHNIQUE: ECG-gated cardiac CT with concomitant abdominopelvic CTangiography was performed pre and post contrast for planning oftranscatheter percutaneous valve implantation. A delayed scan wasperformed of the chest, abdomen, and pelvis. Contrast was administeredvia power injection, followed by a saline flush, as per the image record.3D postprocessed images were reconstructed and interpreted. FINDINGS: CARDIAC FINDINGS: Mitral valve: Sclerotic mitral valve. There is prolapse of the posteriorleaflet of the mitral valve with incomplete coaptation compatible withmitral regurgitation. There is no mitral annular calcification. No aorticmitral continuity calcification. Aortic valve: Tricuspid trileaflet sclerotic valve withoutmodifications. CARDIAC MORPHOLOGY AND FUNCTION: The left atrium is enlarged [id number] mm in AP diameter. Right atrial enlargement. There are no thrombi inthe left ventricle. There are no regional wall motion abnormalities. No evidence of pericardial effusion. No bypass grafts are identified. RAMONA CORONARY ARTERIES: There is no evidence for anomalous coronaryartery origin or course. There is right artery dominance. * Left Main (LM): no plaque; no luminal narrowing. The left mainbifurcates into LAD and LCx. * Left anterior descending (LAD): no plaque; no luminal narrowing. Twopatent diagonal (D) branch(es) identified. The distal LAD wraps aroundthe apex. * Left circumflex (LCx): no plaque; no luminal narrowing. Two patentobtuse marginal (OM) branches identified. * Right coronary artery (RCA): no plaque; no luminal narrowing. The posterior descending artery (PDA) and the posterior left ventricular(PLV) branches originate from the RCA. CALCIUM SCORE: The observed Agatston Calcium Score is 0. VASCULAR FINDINGS: There is no evidence of a flap within the aorta to suggest thoracic orabdominal aortic dissection. There is a left 3 vessel aortic arch. The visualized innominate,subclavian, and carotid arteries are patent. There is an aberrant originof right subclavian artery from the distal arch with a retroesophagealcourse. No evidence of diverticulum of Kommerell. There are no occlusions of the abdominal aorta, iliac arteries, or femoralarteries. There is no evidence of significant kinking of theabdominopelvic vessels. There is no evidence of circumferentialcalcifications. The celiac artery, superior mesenteric artery, and inferior mesentericartery are patent. There are two right and one left patent renalarteries. Minimal arterial luminal diameters are as follows: Aorta: 15.2 mm x 15.9 mm. Right common iliac artery: 9.9 mm x 10.7 mm Right external iliac artery: 6.7 mm x 7.4 mm Right common femoral artery: 8.4 mm x 8.9 mm Left common iliac artery: 9.6 mm x 11.2 mm Left external iliac artery: 7.6 mm x 8.5 mm Left common femoral artery: 7.3 mm x 8.7 mm No venous thrombosis. NON-VASCULAR FINDINGS: Evaluation of visceral organs is not optimal due to vascular protocoltechnique and contrast timing. Lines/tubes : None Lungs and Airways: The central airways are patent. There is minimalatelectasis in the dependent portions of the lungs. Pleura: The pleural spaces are clear. Mediastinum: The visualized thyroid gland shows subcentimeterhypodensities likely cysts. Small hiatal hernia. There is no mediastinal,hilar, or supraclavicular lymphadenopathy. The main pulmonary artery isnormal in caliber. Although contrast opacification was not optimized forpulmonary artery evaluation, there is no evidence of central fillingdefect. Hepatobiliary: Subcentimeter simple cyst in the left lobe of liver. Nobiliary ductal dilatation. The gall bladder is normal. Spleen: No splenomegaly. Pancreas: No focal masses or ductal dilatation. Adrenals: No adrenal nodules. Kidneys/ureters: No hydronephrosis, or solid mass lesions. 3 mmnonobstructive calculus in the interpolar region of right kidney. Pelvic organs/bladder: Heterogeneous enhancement of the bulky uterus whichis incompletely characterized on this study. Peritoneum/retroperitoneum: No free air or fluid. Abdominal Lymph nodes: No lymphadenopathy. GI tract: There are no dilated loops of bowel to suggest obstruction.There is no bowel wall thickening. Bones and soft tissues: No osseous destructive lesion seen. IMPRESSION: * Prolapse of the posterior leaflet of mitral valve with mitralregurgitation. * CAD-RADS 0: No plaque nor stenosis. * Qualitatively preserved left ventricular systolic function. * Patent aorta and iliac arteries are not tortuous and are withoutcircumferential calcifications. Aberrant right subclavian artery originfrom distal arch with a retroesophageal course. * Minimal luminal diameter is 6.7 mm in the right iliac system and 7.3 mmin the left iliac system. Minimal aortic diameter is 15.2 mm. * Bulky heterogeneously enhancing uterus. RECOMMENDATIONS: 1. CAD-RADS management guidelines for symptomatic patients presenting withstable chest pain: CAD-RADS 0 - Reassurance. Consider non- atherosclerotic causes of chestpain. 2. Pelvic ultrasound to evaluate uterus. This report has been forwarded to an automated communication system whichwill electronically notify appropriate providers of potentially importantfindings. us Lopez Reyes MD IMG CT CARDIAC Final Resu lt documented in this encounter Visit Diagnoses Diagnosis Preop cardiovascular exam Pre-operative cardiovascular examination Preop cardiovascular exam Pre-operative cardiovascular examination documented in this encounter Additional Health Concerns Infection Onset Date Last Indicated Resolved Time CoV-Risk 09/10/2023 09/10/2023 09/10/2023 3:10 PM EST COVID-19 09/10/2023 09/10/2023 10/01/2023 1:23 AM EDT documented as of this encounter Care Teams Spar Machine Operator Relationship Specialty Start Date End Date Pita Greene MD [address] [place] [address] PCP - General Internal Medicine 01/31/22 Ty Lilly MD [address] [place] [address] Internal Medicine 03/20/22 Papito Izaguirre MD [address] [place] [address] [email or web address] Cardiology 12/04/22 documented as of this encounter Additional Source Comments The information contained in this document represents components of the legal health record. It is not the complete legal health record.[facility]
--- OUTSIDE RECORDS SUMMARY | 2025-03-22 12:18 | XMS_ITS | Encounter Summary ---
Author Organization [facility] Address [address] [place] [address] Phone Care Team Providers Care Steam [employer] Gas Turbine Assembler Name Role Phone Ty Lilly MD Primary Care Provider [phone] Pita Greene MD Primary Care Provider [phone] Ty Lilly MD Unavailable [phone] Papito Izaguirre MD Unavailable [phone] Encounter Details Date Type Department Care Team (Late st Contact Info) Description 01/10/2022 Procedure Pass [facility] CT, Andrea [address] [facility], 2nd Floor, [address] [place] [address] Social History Tobacco Use Types Packs/Day Years [...] st Contact Info) Description 12/26/2024 Procedure Pass [facility] Cardiac US [address] [place] [address] 03/14/2025 Procedure Pass [facility], Ct Scan [facility] [address] [place] [address] 04/05/2025 8:00 AM EDT Appointment [facility], Ct Scan - [facility] [address] [place] [address] Delia Reyes MD [address] [facility] [address] [place] [address] [email or web address] 05/30/2025 3:30 PM EST Office Visit [facility] Pulmonary Associates [address] [facility], 2nd Floor, [address] [place] [address] Delia Reyes MD [address] [place] [address] [email or web address] 01/08/2026 1:30 PM EDT Appointment [facility] Cardiac US [address] [place] [address] Papito Izaguirre MD [address] [place] [address] [email or web address] 01/08/2026 3:00 PM EDT Office Visit [facility] Cardiovascular Medicine [address] [facility], 5th Floor, [address] [place] [address] Papito Izaguirre MD [address] [place] [address] [email or web address] documented as of this encounter Visit Diagnoses Not on filedocumented in this encounter Additional Health Concerns Infection Onset Date Last Indicated Resolved Time CoV-Risk 09/10/2023 09/10/2023 09/10/2023 3:10 PM EST COVID-19 09/10/2023 09/10/2023 10/01/2023 1:23 AM EDT documented as of this encounter Care Teams Steam [employer] Turbine Assembler Relationship Specialty Start Date End Date Ty Lilly MD PCP - General Internal Medicine 03/08/18 01/30/22 Pita Greene MD [address] [place] [address] PCP - General Internal Medicine 01/31/22 Ty Lilly MD Internal Medicine 03/20/22 Papito Izaguirre MD [address] [place] [address] [email or web address] Cardiology 12/04/22 documented as of this encounter Additional Source Comments The information contained in this document represents components of the legal health record. It is not the complete legal health record.[facility]
--- OUTSIDE RECORDS SUMMARY | 2025-03-22 12:18 | XMS_ITS | Encounter Summary ---
Author Organization [facility] Address [address] [place] [address] [place] [address] Phone Care Team Providers Care Christian Science Healer Name Role Phone Pita Greene MD Primary Care Provider [phone] Ty Lilly MD Unavailable [phone] Papito Izaguirre MD Unavailable [phone] Encounter Details Date Type Department Care Team (Late st Contact Info) Description 02/27/2022 Procedure Pass [facility] PERI[facility]IVE DEPT [address] [place] [id number] Social History Tobacco Use Types Packs/Day Years Used Date Smoking Tobacco: Never Smokeless Tobacco: Never Comments:father did of lung cancer was a smoker Alcohol Use Standard Drinks/Week Comments Yes 0 (1 standard drink = 0.6 oz pur e alcohol) rare/social Comments No Sex and Gender Information Value Date Recorded Sex Assigned at Female 06/07/2022 12:42 PM EST Legal Sex Female 10:34 PM EDT Gender Identity Female 06/07/2022 12:42 PM EST Sexual Orientation Straight 06/07/2022 12 :42 PM EST documented as of this encounter Plan of Treatment Upcoming Encounters Date Type Department Care Team (Late st Contact Info) Description 12/26/2024 Procedure Pass [facility] Cardiac US [address] [place] [address] 03/14/2025 Procedure Pass [facility], Ct Scan - [facility] 30 [place] [address] 04/05/2025 8:00 AM EDT Appointment [facility], Ct Scan - [facility] 30 [place] [address] Delia Reyes MD [address] [facility] [address] [place] [address] [email or web address] 05/30/2025 3:30 PM EST Office Visit [facility] [address] [facility], 2nd Floor, [address] [place] [address] Delia Reyes MD [address] [place] [address] [address] [place] [address] [email or web address] 01/08/2026 1:30 PM EDT Appointment [facility] Cardiac US [address] [place] [address] Papito Izaguirre MD [address] [place] [address] [email or web address] 01/08/2026 3:00 PM EDT Office Visit [facility] Cardiovascular Medicine [address] [facility], 5th Floor, [address] [place] [address] Papito Izaguirre MD [address] [place] [id number] [email or web address] documented as of this encounter Visit Diagnoses Not on filedocumented in this encounter Additional Health Concerns Infection Onset Date Last Indicated Resolved Time CoV-Risk 09/10/2023 09/10/2023 09/10/2023 3:10 PM EST COVID-19 09/10/2023 09/10/2023 10/01/2023 1:23 AM EDT documented as of this encounter Care Teams Christian Science Healer Relationship Specialty Start Date End Date Pita Greene MD [address] [place] [address] PCP - General Internal Medicine 01/31/22 Ty Lilly MD [address] [place] [address] Internal Medicine 03/20/22 Papito Izaguirre MD [address] [place] [address] [email or web address] Cardiology 12/04/22 documented as of this encounter Additional Source Comments The information contained in this document represents components of the legal health record. It is not the complete legal health record.[facility]
--- OUTSIDE RECORDS SUMMARY | 2025-03-22 12:19 | XMS_ITS | Encounter Summary ---
Author Organization [facility] Address [address] [place] [address] [place] [address] Phone Care Team Providers Care Health Promotion Coordinator Name Role Phone Pita Greene MD Primary Care Provider [phone] Ty Lilly MD Unavailable [phone] Papito Izaguirre MD Unavailable [phone] Encounter Details Date Type Department Care Team (Late st Contact Info) Description 11/23/2023 Procedure Pass [facility] [address] [place] [address] Social History Tobacco Use Types Packs/Day Years Used Date Smoking Tobacco: Never Smokeless Tobacco: Never Comments:father did of lung cancer was a smoker Alcohol Use Standard Drinks/Week Comments Not Currently 0 (1 standard drink = 0.6 oz pur e alcohol) rare/social Education Answer Date Recorded Are you interested in more education? Not on gertrudis e 11/07/2022 Are you concerned about learning? Not on file 11/07/2022 No 11/07/2022 No 11/07/2022 Digital Access Answer Date Recorded No 12/03/2022 No 12/03/2022 Reliable internet access at home? Not on file 12/03/2022 Device with a working camera? Not on file Comments No Sex and Gender Information Value Date Recorded Sex Assigned at Female 06/07/2022 12:42 PM EST Legal Sex Female 10:34 PM EDT Gender Identity Female 06/07/2022 12:42 PM EST Sexual Orientation Straight 06/07/2022 12 :42 PM EST documented as of this encounter Plan of Treatment Upcoming Encounters Date Type Department Care Team (Late st Contact Info) Description 12/26/2024 Procedure Pass [facility] Cardiac US [address] [place] [address] 03/14/2025 Procedure Pass [address] [address] 04/05/2025 8:00 AM EDT Appointment [address] [address] Delia Reyes MD [address] [place] [address] [email or web address] 05/30/2025 3:30 PM EST Office Visit [facility] Associates 55 [facility], 2nd Floor, [address] [place] [address] Delia Reyes MD [address] [place] [address] JONH@[email or web address] 01/08/2026 1:30 PM EDT Appointment [facility] Cardiac US [address] [place] [address] Papito Izaguirre MD [address] [place] [address] ALEXANDER@[email or web address] 01/08/2026 3:00 PM EDT Office Visit [facility] Cardiovascular Medicine 32 [facility], 5th Floor, [address] [place] [address] Papito Izaguirre MD [address] [place] [address] ALEXANDER@[email or web address] documented as of this encounter Visit Diagnoses Not on filedocumented in this encounter Additional Health Concerns Assessment Noted Time PHQ-9 Depression Total Score: 14 022 3:36 PM EST documented as of this encounter Care Teams Health Promotion Coordinator Relationship Specialty Start Date End Date Pita Greene MD [facility] [place] [address] PCP - General Internal Medicine 01/31/22 Ty Lilly MD [address] [place] [address] Internal Medicine 03/20/22 Papito Izaguirre MD [address] [place] [address] [email or web address] Cardiology 12/04/22 documented as of this encounter Additional Source Comments The information contained in this document represents components of the legal health record. It is not the complete legal health record.[facility]
--- OUTSIDE RECORDS SUMMARY | 2025-03-22 12:19 | XMS_ITS | Encounter Summary ---
Author Organization [facility] Address [address] [place] [address] Phone Care Team Providers Care Road Equipment Operator Name Role Phone Pita Greene MD Primary Care Provider [phone] Ty Lilly MD Unavailable [phone] Papito Izaguirre MD Unavailable [phone] Encounter Details Date Type Department Care Team (Late Contact Info) Description 07/11/2022 Procedure Pass [address] [address] Social History Tobacco Use Types Packs/Day Years [...] Encounters Date Type Department Care Team (Late Contact Info) Description 12/26/2024 Procedure Pass [facility] [place] [place] [address] [place] [address] 03/14/2025 Procedure Pass [facility] 30 [place] [address] 04/05/2025 8:00 AM EDT Appointment [facility], Ct Scan - [address] [address] Delia Reyes MD 55 [facility] 148 [place] [address] [email or web address] 05/30/2025 3:30 PM EST Office Visit [facility] 55 [facility], 2nd Floor, [address] [place] [address] Delia Reyes MD [address] [place] [address] 148 [place] [address] JONH@[email or web address] 01/08/2026 1:30 PM EDT Appointment [facility] [place] [address] [place] [address] Papito Izaguirre MD [address] [place] [address] ALEXANDER@[email or web address] 01/08/2026 3:00 PM EDT Office Visit [facility] [place] 32 [facility], 5th Floor, [address] [place] [address] Papito Izaguirre MD [address] [place] [address] ALEXANDER@[email or web address] documented as of this encounter Visit Diagnoses Not on filedocumented in this encounter Additional Health Concerns Infection Onset Date Last Indicated Resolved Time CoV-Risk 09/10/2023 09/10/2023 09/10/2023 3:10 PM EST COVID-19 09/10/2023 09/10/2023 10/01/2023 1:23 AM EDT Assessment Noted Time PHQ-9 Depression Total Score: 14 022 3:36 PM EST documented as of this encounter Care Teams Road Equipment Operator Relationship Specialty Start Date End Date Pita Greene MD [address] [place] [address] PCP - General Internal Medicine 01/31/22 Ty Lilly MD [address] [place] [address] Internal Medicine 03/20/22 Papito Izaguirre MD [address] [place] [address] ALEXANDER@[email or web address] Cardiology 12/04/22 documented as of this encounter Additional Source Comments The information contained in this document represents components of the legal health record. It is not the complete legal health record.[facility]
--- OUTSIDE RECORDS SUMMARY | 2025-03-22 12:19 | XMS_ITS | Encounter Summary ---
Author Organization [facility] Address [address] [place] [address] Phone Care Team Providers Care Patient Flow Coordinator Name Role Phone Pita Greene MD Primary Care Provider Ty Lilly MD Unavailable [phone] Papito Izaguirre MD Unavailable [phone] Reason for Referral * MRI/CAT Scan - Closed Specialty Diagnoses / Procedures Referred By Contizabela t Referred To Contact Radiology Diagnoses Sensorineural hearing loss, unilateral, left ear, with unrestricted hearing on the contralateral side Dizziness and giddiness Meniere's disease, left ear Procedures MRI Brain CHG MRI BRAIN CHG MRI BRAIN CONTRAST CHG MRI BRAIN COMBO Gallito Lyle MD Phone: tel: fax: [email or web address] [address] Phone: tel: Referral ID Status Reason Start Date Expiration Date Visits Re quested Visits Authorized [id number] Closed 06/12/2022 07/12/2022 1 1 Encounter Details Date Type Department Care Team (Latest Contact Info) Description 05/22/2022 Transcribe Orders [facility] Department [address] [place] [address] Gallito Lyle MD [address], [address] [place] [address] [email or web address] Sensorineural hearing loss, unilateral, left ear, with unrestricted hearing on the contralateral side (Primary Dx); Dizziness and giddiness; Meniere's disease, left ear Social History Tobacco Use Types Packs/Day Years [...] PM EST documented as of this encounter Functional Status * Calculated C-SSRS Risk Score (Lifetime/Recent) Answer Date of Assessment Author No Risk Indicated 05/25/2022 8:27 PM EST Tomi Ruiz RN * [place] Suicide Severity Rating Scale (Screener/Recent Self-Report) Question Answer Date of Assessment Author 1. Wish to be (Past 1 Month) No 022 8:27 PM EST Tomi Ruiz, THAD 2. Non-Specific Active Suici eliseo Thoughts (Past 1 Month) No 05/25/2022 8:27 PM EST Valerie Ruiz, THAD 6. Suicidal Behavior (Lifetime) No 8:27 PM EST Tomi Ruiz RN documented as of this encounter Plan of Treatment Upcoming Encounters Date Type Department Care Team (Late st Contact Info) Description 12/26/2024 Procedure Pass [facility] [address] [place] [address] 03/14/2025 Procedure Pass [facility], [address] [address] 04/05/2025 8:00 AM EDT Appointment [address] [address] Delia Reyes MD 55 [facility] 148 [place] [address] JONH@[email or web address] 05/30/2025 3:30 PM EST Office Visit [facility] 55 [facility], 2nd Floor, [address] [place] [address] Delia Reyes MD [address] [place] [address] JONH@[email or web address] 01/08/2026 1:30 PM EDT Appointment [facility] [address] [place] [address] Papito Izaguirre MD [address] [place] [address] ALEXANDER@[email or web address] 01/08/2026 3:00 PM EDT Office Visit [facility] Cardi[facility] 32 [facility], 5th Floor, [address] [place] [address] Papito Izaguirre MD [address] [place] [address] ALEXANDER@[email or web address] documented as of this encounter Results * MRI BRAIN WITH AND WITHOUT CONTRAST (06/12/2022 2:51 PM EST) Anatomical Region Laterality Modality Head Magnetic Resonan ce 06/12/2022 4:13 PM EST Impressions 06/15/2022 6:41 AM EST -No intracranial cause for the reported symptoms identified. No IAC or CP angle mass. -Few punctate old supratentorial and infratentorial microhemorrhages, new since 12/16/2021, likely related to interval mitral valve surgery, and likely clinically insignificant. Narrative 06/15/2022 6:41 AM EST MRI BRAIN WITH AND WITHOUT CONTRAST TECHNIQUE: MRI BRAIN WITH AND WITHOUT CONTRAST Multi-sequence, multi-planar MRI of the brain was performed before and after intravenous contrast. COMPARISON: Brain MRI 12/16/2021. FINDINGS: Brain Parenchyma: No evidence of acute infarct, mass lesion, or recent hemorrhage. No IAC or CP angle mass. Few punctate old supratentorial and infratentorial old , for example in the left cerebellum (8:15) and right temporal lobe (8:37), not clearly seen on 12/16/2021. Ventricular System and Extra-Axial Spaces: Normal. No evidence of midline shift or hydrocephalus. Extracranial Structures: Arterial flow voids in the skull base are present. Procedure Note Raghu Tate MD - 06/15/2022 MRI BRAIN WITH AND WITHOUT CONTRAST TECHNIQUE: MRI BRAIN WITH AND WITHOUT CONTRAST Multi-sequence, multi-planar MRI of the brain was performed before andafter intravenous contrast. COMPARISON: Brain MRI 12/16/2021. FINDINGS: Brain Parenchyma: No evidence of acute infarct, mass lesion, or recenthemorrhage. No IAC or CP angle mass. Few punctate old supratentorial andinfratentorial old , for example in the left cerebellum (8:15) and righttemporal lobe (8:37), not clearly seen on 12/16/2021. Ventricular System and Extra-Axial Spaces: Normal. No evidence of midlineshift or hydrocephalus. Extracranial Structures: Arterial flow voids in the skull base arepresent. IMPRESSION: -No intracranial cause for the reported symptoms identified. No IAC or CPangle mass. -Few punctate old supratentorial and infratentorial microhemorrhages, newsince 12/16/2021, likely related to interval mitral valve surgery, andlikely clinically insignificant. us Gallito Lyle MD IMG MR HEAD/NECK Final R esult documented in this encounter Visit Diagnoses Diagnosis Sensorineural hearing loss, unilateral, left ear, with unrestricted hearing on the contralateral side- Primary Dizziness and giddiness Meniere's disease, left ear Sensorineural hearing loss, unilateral, left ear, with unrestricted hearing on the contralateral side Dizziness and giddiness Meniere's disease, left ear documented in this encounter Additional Health Concerns Infection Onset Date Last Indicated Resolved Time CoV-Risk 09/10/2023 09/10/2023 09/10/2023 3:10 PM EST COVID-19 09/10/2023 09/10/2023 10/01/2023 1:23 AM EDT Assessment Noted Time PHQ-9 Depression Total Score: 14 022 3:36 PM EST documented as of this encounter Care Teams Patient Flow Coordinator Relationship Specialty Start Date End Date Pita Greene MD [address] [place] [address] PCP - General Internal Medicine 01/31/22 Ty Lilly MD [address] [place] [address] Internal Medicine 03/20/22 Papito Izaguirre MD [address] [place] [address] [email or web address] Cardiology 12/04/22 documented as of this encounter Additional Source Comments The information contained in this document represents components of the legal health record. It is not the complete legal health record.[facility]
--- OUTSIDE RECORDS SUMMARY | 2025-03-22 12:19 | XMS_ITS | Encounter Summary ---
Author Organization [facility] Address [address] [place] [address] [place] [address] Phone Care Team Providers Care Fire Engine Operator Name Role Phone Pita Greene MD Primary Care Provider [phone] Ty Lilly MD Unavailable [phone] Papito Izaguirre MD Unavailable [phone] Encounter Details Date Type Department Care Team (Late st Contact Info) Description 11/11/2022 Procedure Pass [facility] Cardiac US [address] [place] [address] Social History Tobacco Use Types Packs/Day Years [...] on file 11/07/2022 No 11/07/2022 No 11/07/2022 Comments No Sex and Gender Information Value Date Recorded Sex Assigned at Female 06/07/2022 12:42 PM EST Legal Sex Female 10:34 PM EDT Gender Identity Female 06/07/2022 12:42 PM EST Sexual Orientation Straight 06/07/2022 12 :42 PM EST documented as of this encounter Plan of Treatment Upcoming Encounters Date Type Department Care Team (Late st Contact Info) Description 12/26/2024 Procedure Pass [facility] Cardiac US [address] [place] [address] 03/14/2025 Procedure Pass [facility], [address] [address] 04/05/2025 8:00 AM EDT Appointment [facility], [address] [address] Delai Reyes MD [address] [place] [address] [email or web address] 05/30/2025 3:30 PM EST Office Visit [facility] Pulmonary Associates 55 [facility], 2nd Floor, [address] [place] [address] Delia Reyes MD [address] [place] [address] [email or web address] 01/08/2026 1:30 PM EDT Appointment [facility] Cardiac US [address] [place] [address] Papito Izaguirre MD [address] [place] [address] ALEXANDER@[email or web address] 01/08/2026 3:00 PM EDT Office Visit [facility] Cardiovascular Medicine 32 [facility], 5th Floor, [address] [place] [address] Papito Izaguirre MD [address] [place] [address] ALEXANDER@[email or web address] documented as of this encounter Visit Diagnoses Not on filedocumented in this encounter Additional Health Concerns Infection Onset Date Last Indicated Resolved Time CoV-Risk 09/10/2023 09/10/2023 09/10/2023 3:10 PM EST COVID-19 09/10/2023 09/10/2023 10/01/2023 1:23 AM EDT Assessment Noted Time PHQ-9 Depression Total Score: 14 022 3:36 PM EST documented as of this encounter Care Teams Fire Engine Operator Relationship Specialty Start Date End Date Pita Greene MD [address] [place] [address] PCP - General Internal Medicine 01/31/22 Ty Lilly MD [facility] [place] [address] Internal Medicine 03/20/22 Papito Izaguirre MD [address] [place] [address] ALEXANDER@[email or web address] Cardiology 12/04/22 documented as of this encounter Additional Source Comments The information contained in this document represents components of the legal health record. It is not the complete legal health record.[facility]
--- OUTSIDE RECORDS SUMMARY | 2025-03-22 12:19 | XMS_ITS | Encounter Summary ---
Author Organization [facility] Address [address] [place] [address] [place] [address] Phone Care Team Providers Care Metal Reed Tuner Name Role Phone Pita Greene MD Primary Care Provider [phone] Ty Lilly MD Unavailable [phone] Papito Izaguirre MD Unavailable [phone] Encounter Details Date Type Department Care Team (Late st Contact Info) Description 04/09/2022 Procedure Pass [facility] [address] [place] [address] Social History Tobacco Use Types Packs/Day Years [...] Date of Assessment Author No Risk Indicated 04/11/2022 9:00 PM EDT Mimi Aaron, THAD * [place] Suicide Severity Rating Scale (Screener/Recent Self-Report) Question Answer Date of Assessment Author 1. Wish to be (Past 1 Month) No 04/11/2022 9:00 PM EDT Mimi Aaron, THAD 2. Non-Specific Active Suicidal Thoughts (Past 1 Month) No 04/11/2022 9:00 PM EDT Mimi Aaron, THAD 6. Suicidal Behavior (Lifetime) No 04/11/2022 9:00 PM EDT Mimi Aaron, THAD documented as of this encounter Plan of Treatment Upcoming Encounters Date Type Department Care Team (Late st Contact Info) Description 12/26/2024 Procedure Pass [facility] Cardiac US 55 [place] [address] 03/14/2025 Procedure Pass [address] [address] 04/05/2025 8:00 AM EDT Appointment [address] [address] Delia Reyes MD [address] [place] [address] JONH@[email or web address] 05/30/2025 3:30 PM EST Office Visit [facility] Pulmonary Associates 55 [facility], 2nd Floor, [address] [place] [address] Delia Reyes MD [address] [place] [address] JONH@[email or web address] 01/08/2026 1:30 PM EDT Appointment [facility] Cardiac US 55 [place] [address] Papito Izaguirre MD [address] [place] [address] ALEXANDER@[email or web address] 01/08/2026 3:00 PM EDT Office Visit [facility] Cardiovascular Medicine 32 [facility], 5th Floor, [address] [place] [address] Papito Izaguirre MD [address] [place] [address] ALEXANDER@[email or web address] documented as of this encounter Visit Diagnoses Not on filedocumented in this encounter Additional Health Concerns Infection Onset Date Last Indicated Resolved Time CoV-Risk 09/10/2023 09/10/2023 09/10/2023 3:10 PM EST COVID-19 09/10/2023 09/10/2023 10/01/2023 1:23 AM EDT documented as of this encounter Care Teams Metal Reed Tuner Relationship Specialty Start Date End Date Pita Greene MD [address] [place] [address] PCP - General Internal Medicine 01/31/22 Ty Lilly MD [address] [place] [address] Internal Medicine 03/20/22 Papito Izaguirre MD [address] [place] [address] ALEXANDER@[email or web address] Cardiology 12/04/22 documented as of this encounter Additional Source Comments The information contained in this document represents components of the legal health record. It is not the complete legal health record.[facility]
--- OUTSIDE RECORDS SUMMARY | 2025-03-22 12:19 | XMS_ITS | Encounter Summary ---
Author Organization [facility] Address [address] [place] [address] [place] [address] Phone Care Team Providers Care Chief Of Pediatric Urology Name Role Phone Pita Greene MD Primary Care Provider [phone] Ty Lilly MD Unavailable [phone] Papito Izaguirre MD Unavailable Encounter Details Date Type Department Care Team (Late st Contact Info) Description 05/25/2022 Procedure Pass [facility], Ct Scan - [address] [address] Social History Tobacco Use Types Packs/Day Years [...] 8:27 PM EST Tomi Ruiz RN * [place] Suicide Severity Rating Scale (Screener/Recent Self-Report) Question Answer Date of Assessment Author 1. Wish to be (Past 1 Month) No 022 8:27 PM Tomi Liz, THAD 2. Non-Specific Active Suici eliseo Thoughts (Past 1 Month) No 05/25/2022 8:27 PM Valerie Liz, THAD 6. Suicidal Behavior (Lifetime) No 8:27 PM Tomi Liz, RN documented as of this encounter Plan of Treatment Upcoming Encounters Date Type Department Care Team (Late st Contact Info) Description 12/26/2024 Procedure Pass [facility] Cardiac US 55 [place] [address] 03/14/2025 Procedure Pass [address] [address] 04/05/2025 8:00 AM EDT Appointment [address] [address] Delia Reyes MD [address] [place] [address] JONH@[email or web address] 05/30/2025 3:30 PM EST Office Visit [facility] Associates 55 [facility], 2nd Floor, [address] [place] [address] Delia Reyes MD [address] [place] [address] JONH@[email or web address] 01/08/2026 1:30 PM EDT Appointment [facility] Cardiac US [address] [place] [address] Papito Izaguirre MD [address] [place] [address] ALEXANDER@[email or web address] 01/08/2026 3:00 PM EDT Office Visit [facility] Cardiovascular Medicine 32 [facility], 5th Floor, [address] [place] [address] Papito Izaguirre MD [address] [place] [address] ALEXANDER@[email or web address] documented as of this encounter Visit Diagnoses Not on filedocumented in this encounter Additional Health Concerns Infection Onset Date Last Indicated Resolved Time CoV-Risk 09/10/2023 09/10/2023 09/10/2023 3:10 PM EST COVID-19 09/10/2023 09/10/2023 10/01/2023 1:23 AM EDT Assessment Noted Time PHQ-9 Depression Total Score: 14 022 3:36 PM EST documented as of this encounter Care Teams Chief Of Pediatric Urology Relationship Specialty Start Date End Date Pita Greene MD [facility]0 [place] [address] PCP - General Internal Medicine 01/31/22 Ty Lilly MD [facility]0 [place] [address] Internal Medicine 03/20/22 Papito Izaguirre MD [address] [place] [address] ALEXANDER@[email or web address] Cardiology 12/04/22 documented as of this encounter Additional Source Comments The information contained in this document represents components of the legal health record. It is not the complete legal health record.[facility]
--- OUTSIDE RECORDS SUMMARY | 2025-03-22 12:19 | XMS_ITS | Encounter Summary ---
Author Organization [facility] Address [address] [place] [address] [place] [address] Phone Care Team Providers Care Plate Grinder Name Role Phone Pita Greene MD Primary Care Provider [phone] Ty Lilly MD Unavailable [phone] Papito Izaguirre MD Unavailable [phone] Reason for Visit * Reason Comments CR Assessment Encounter Details Date Type Department Care Team (Late st Contact Info) Description 05/21/2022 Documentation [facility]iop[facility] [address] [place] [address] Darya Miner RN [email or web address] CR Assessment Social History Tobacco Use Types Packs/Day Years [...] st Contact Info) Description 12/26/2024 Procedure Pass [facility] Cardiac US [address] [place] [address] 03/14/2025 Procedure Pass [facility], Ct Scan - [address] [address] 04/05/2025 8:00 AM EDT Appointment [facility], Ct Scan - [address] [address] Delia Reyes MD [address] [place] [address] JONH@[email or web address] 05/30/2025 3:30 PM EST Office Visit [facility] Associates 55 [facility], 2nd Floor, [address] [place] [address] Delia Reyes MD [address] [place] [address] JONH@[email or web address] 01/08/2026 1:30 PM EDT Appointment [facility] Cardiac US [address] [place] [address] Papito Izaguirre MD [address] [place] [address] ALEXANDER@[email or web address] 01/08/2026 3:00 PM EDT Office Visit [facility] Cardiovascular Medicine 32 [facility], 5th Floor, [address] [place] [address] Papito Izaguirre MD [address] [place] [address] ALEXANDER@[email or web address] Scheduled Orders Name Type Priority Associated Diagnoses Orde r Schedule CARDIAC REHAB ITP Procedures Routine Status post mitral valve repair Ordered: 05/21/2022 documented as of this encounter Visit Diagnoses Diagnosis Status post mitral valve repair- Primary Other postprocedural status documented in this encounter Additional Health Concerns Infection Onset Date Last Indicated Resolved Time CoV-Risk 09/10/2023 09/10/2023 09/10/2023 3:10 PM EST COVID-19 09/10/2023 09/10/202309/3010/01/2023 1:23 AM EDT Assessment Noted Time PHQ-9 Depression Total Score: 14 022 3:36 PM EST documented as of this encounter Care Teams Plate Grinder Relationship Specialty Start Date End Date Pita Greene MD [address] [place] [address] PCP - General Internal Medicine 01/31/22 Ty Lilly MD [facility] [place] [address] Internal Medicine 03/20/22 Papito Izaguirre MD [address] [place] [address] [email or web address] 12/04/22 documented as of this encounter Additional Source Comments The information contained in this document represents components of the legal health record. It is not the complete legal health record.[facility]
--- OUTSIDE RECORDS SUMMARY | 2025-03-22 12:19 | XMS_ITS | Encounter Summary ---
Author Organization [facility] Address [address] [place] [address] [place] [address] Phone Care Team Providers Care Decating Machine Operator Name Role Phone Pita Greene MD Primary Care Provider [phone] Ty Lilly MD Unavailable [phone] Papito Izaguirre MD Unavailable [phone] Encounter Details Date Type Department Care Team (Late st Contact Info) Description 12/05/2022 Procedure Pass [facility]iac US [address] [place] [address] Social History Tobacco Use Types Packs/Day Years [...] st Contact Info) Description 12/26/2024 Procedure Pass [facility] Cardiac US [address] [place] [address] 03/14/2025 Procedure Pass [address] [address] 04/05/2025 8:00 AM EDT Appointment [address] [address] Delia Reyes MD [address] [place] [address] JONH@[email or web address] 05/30/2025 3:30 PM EST Office Visit [facility] Pulmonary Associates 55 [facility], 2nd Floor, [address] [place] [address] Delia Reyes MD [address] [place] [address] JONH@[email or web address] 01/08/2026 1:30 PM EDT Appointment [facility] Cardiac US 55 [place] [address] Papito Izaguirre MD [address] [place] [address] ALEXANDER@[facility] 01/08/2026 3:00 PM EDT Office Visit [facility] Cardiovascular Medicine 32 [facility], 5th Floor, [address] [place] [address] Papito Izaguirre MD [address] [place] [address] ALEXANDER@[facility] documented as of this encounter Visit Diagnoses Not on filedocumented in this encounter Additional Health Concerns Infection Onset Date Last Indicated Resolved Time CoV-Risk 09/10/2023 09/10/2023 09/10/2023 3:10 PM EST COVID-19 09/10/2023 09/10/2023 10/01/2023 1:23 AM EDT Assessment Noted Time PHQ-9 Depression Total Score: 14 022 3:36 PM EST documented as of this encounter Care Teams Decating Machine Operator Relationship Specialty Start Date End Date Pita Greene MD [facility] [place] [address] PCP - General Internal Medicine 01/31/22 Ty Lilly MD [address] [place] [address] Internal Medicine 03/20/22 Papito Izaguirre MD [address] [place] [address] ALEXANDER@[email or web address] Cardiology 12/04/22 documented as of this encounter Additional Source Comments The information contained in this document represents components of the legal health record. It is not the complete legal health record.[facility]
--- OUTSIDE RECORDS SUMMARY | 2025-03-22 12:19 | XMS_ITS | Encounter Summary ---
Author Organization [facility] Address [address] [place] [address] [place] [address] Phone Care Team Providers Care [employer] Dean Name Role Phone Pita Greene MD Primary Care Provider [phone] Ty Lilly MD Unavailable [phone] Papito Izaguirre MD Unavailable [phone] Encounter Details Date Type Department Care Team (Late st Contact Info) Description 05/22/2022 Procedure Pass [address] [place] [address] Social History Tobacco Use Types Packs/Day Years [...] Author No Risk Indicated 05/25/2022 8:27 PM Tomi Liz RN * [place] Suicide Severity Rating Scale (Screener/Recent Self-Report) Question Answer Date of Assessment Author 1. Wish to be (Past 1 Month) No 022 8:27 PM Tomi Liz RN 2. Non-Specific Active Suici eliseo Thoughts (Past 1 Month) No 05/25/2022 8:27 PM Valerie Liz, THAD 6. Suicidal Behavior (Lifetime) No 8:27 PM Tomi Liz, RN documented as of this encounter Plan of Treatment Upcoming Encounters Date Type Department Care Team (Late st Contact Info) Description 12/26/2024 Procedure Pass [facility] Cardiac US 55 [place] [address] 03/14/2025 Procedure Pass [address] [address] 04/05/2025 8:00 AM EDT Appointment [address] [address] Delia Reyes MD [address] [place] [address] JONH@[email or web address] 05/30/2025 3:30 PM EST Office Visit [facility] Pulmonary Associates 55 [facility], 2nd Floor, [address] [place] [address] Delia Reyes MD [address] [place] [address] JONH@[email or web address] 01/08/2026 1:30 PM EDT Appointment [facility] Cardiac US [address] [place] [address] Papito Izaguirre MD [address] [place] [address] ALEXANDER@[email or web address] 01/08/2026 3:00 PM EDT Office Visit [facility] Cardiovascular Medicine 32 [facility], 5th Floor, [address] [place] [address] Papito Izaguirre MD [address] [place] [address] ALEXANDER@[email or web address] documented as of this encounter Visit Diagnoses Not on filedocumented in this encounter Additional Health Concerns Infection Onset Date Last Indicated Resolved Time CoV-Risk 09/10/2023 09/10/2023 09/10/2023 3:10 PM EST COVID-19 09/10/2023 09/10/2023 10/01/2023 1:23 AM EDT Assessment Noted Time PHQ-9 Depression Total Score: 14 022 3:36 PM EST documented as of this encounter Care Teams [employer] Dean Relationship Specialty Start Date End Date Pita Greene MD [address] [place] [address] PCP - General Internal Medicine 01/31/22 Ty Lilly MD [facility] [place] [address] Internal Medicine 03/20/22 Papito Izaguirre MD [address] [place] [address] ALEXANDER@[email or web address] Cardiology 12/04/22 documented as of this encounter Additional Source Comments The information contained in this document represents components of the legal health record. It is not the complete legal health record.[facility]
--- OUTSIDE RECORDS SUMMARY | 2025-03-22 12:19 | XMS_ITS | Encounter Summary ---
Author Organization [facility] Address [address] [place] [address] [place] [address] Phone Care Team Providers Care Patient Consumer Marketer Name Role Phone Pita Greene MD Primary Care Provider [phone] Ty Lilly MD Unavailable [phone] Papito Izaguirre MD Unavailable [phone] Encounter Details Date Type Department Care Team (Late st Contact Info) Description 12/24/2024 Procedure Pass [facility], Ct Scan - [address] [address] Social History Tobacco Use Types Packs/Day Years [...] with a working camera? Not on file Intimate Partner Violence Answer Date R ecorded Are you denied basic needs s uch as food, clothing, or medical care? No 12/24/2024 In the past 12 months have y ou been in a relationship with a person who hurts, threatens, or tries to control you? No 12/24/2024 Are you denied basic needs s uch as food, clothing, or medical care? No 12/24/2024 In the past 12 months have y ou been in a relationship with a person who hurts, threatens, or tries to control you? No 12/24/2024 Comments No Sex and Gender Information Value Date Recorded Sex Assigned at Female 06/07/2022 12:42 PM EST Legal Sex Female 10:34 PM EDT Gender Identity Female 06/07/2022 12:42 PM EST Sexual Orientation Straight 06/07/2022 12 :42 PM EST documented as of this encounter Functional Status * Calculated C-SSRS Risk Score (Lifetime/Recent) Answer Date of Assessment Author No Risk Indicated 12/24/2024 9:11 AM EDT Keith Conteh RN * [place] Suicide Severity Rating Scale (Screener/Recent Self-Report) Question Answer Date of Assessment Author 1. Wish to be (Past 1 Month) No 025 9:11 AM EDT Keith Conteh RN 2. Non-Specific Active Suici eliseo Thoughts (Past 1 Month) No 12/24/2024 9:11 AM EDT Keith Conteh RN 6. Suicidal Behavior (Lifetime) No 9:11 AM EDT Keith Conteh RN documented as of this encounter Plan of Treatment Upcoming Encounters Date Type Department Care Team (Late st Contact Info) Description 12/26/2024 Procedure Pass [facility] Cardiac US [address] [place] [address] 03/14/2025 Procedure Pass [address] [address] 04/05/2025 8:00 AM EDT Appointment [address] [address] Delia Reyes MD [address] [place] [address] JONH@[email or web address] 05/30/2025 3:30 PM EST Office Visit [facility] Pulmonary Associates [address] [place] [address], 2nd Floor, [address] [place] [address] Delia Reyes MD [address] [place] [address] [address] [place] [address] JOHNNYISAIAH@[facility] 01/08/2026 1:30 PM EDT Appointment [facility] Cardiac US 55 [place] [address] Papito Izaguirre MD [address] [place] [address] ALEXANDER@[facility] 01/08/2026 3:00 PM EDT Office Visit [facility] Cardiovascular Medicine 32 [facility], 5th Floor, [address] [place] [address] Papito Izaguirre MD [address] [place] [address] ALEXANDER@[facility] documented as of this encounter Visit Diagnoses Not on filedocumented in this encounter Additional Health Concerns Assessment Noted Time PHQ-9 Depression Total Score: 14 022 3:36 PM EST documented as of this encounter Care Teams Patient Consumer Marketer Relationship Specialty Start Date End Date Pita Greene MD [facility] [place] [address] PCP - General Internal Medicine 01/31/22 Ty Lilly MD [address] [place] [address] Internal Medicine 03/20/22 Papito Izaguirre MD [address] [place] [address] ALEXANDER@[email or web address] Cardiology 12/04/22 documented as of this encounter Additional Source Comments The information contained in this document represents components of the legal health record. It is not the complete legal health record.[facility]
--- OUTSIDE RECORDS SUMMARY | 2025-03-22 12:19 | XMS_ITS | Encounter Summary ---
Author Organization [facility] Address [address] [place] [address] [place] [address] Phone Care Team Providers Care Respiratory Clinician Name Role Phone Pita Greene MD Primary Care Provider [phone] Ty Lilly MD Unavailable [phone] Papito Izaguirre MD Unavailable [phone] Encounter Details Date Type Department Care Team (Late st Contact Info) Description 12/15/2022 Procedure Pass [facility] Cardiac US [address] [place] [address] Social History Tobacco Use Types Packs/Day Years [...] st Contact Info) Description 12/26/2024 Procedure Pass [facility] Card[facility] US [address] [place] [address] 03/14/2025 Procedure Pass [address] [address] 04/05/2025 8:00 AM EDT Appointment [address] [address] Delia Reyes MD [address] [place] [address] JONH@[facility] 05/30/2025 3:30 PM EST Office Visit [facility] 55 [facility], 2nd Floor, [address] [place] [address] Delia Reyes MD [address] [place] [address] JONH@[facility] 01/08/2026 1:30 PM EDT Appointment [facility] Cardiac US 55 [place] [address] Papito Izaguirre MD [address] [place] [address] ALEXANDER@[facility] 01/08/2026 3:00 PM EDT Office Visit [facility] Cardiovascular Medicine 32 [facility], 5th Floor, [address] [place] [address] Papito Izaguirre MD [address] [place] [address] ALEXANDER@[facility] documented as of this encounter Visit Diagnoses Not on filedocumented in this encounter Additional Health Concerns Infection Onset Date Last Indicated Resolved Time CoV-Risk 09/10/2023 09/10/2023 09/10/2023 3:10 PM EST COVID-19 09/10/2023 09/10/2023 10/01/2023 1:23 AM EDT Assessment Noted Time PHQ-9 Depression Total Score: 14 022 3:36 PM EST documented as of this encounter Care Teams Respiratory Clinician Relationship Specialty Start Date End Date Pita Greene MD [facility] [place] [address] PCP - General Internal Medicine 01/31/22 Ty Lilly MD [address] [place] [address] Internal Medicine 03/20/22 Papito Izaguirre MD [address] [place] [address] ALEXANDER@[email or web address] Cardiology 12/04/22 documented as of this encounter Additional Source Comments The information contained in this document represents components of the legal health record. It is not the complete legal health record.[facility]
--- OUTSIDE RECORDS SUMMARY | 2025-03-22 12:19 | XMS_ITS | Encounter Summary ---
Author Organization [facility] Address [address] [place] [address] [place] [address] Phone Care Team Providers Care Primary Class Teacher Name Role Phone Pita Greene MD Primary Care Provider [phone] Ty Lilly MD Unavailable [phone] Papito Izaguirre MD Unavailable [phone] Encounter Details Date Type Department Care Team (Late st Contact Info) Description 05/15/2022 Procedure Pass [facility] Cardiac US [address] [place] [address] Social History Tobacco Use Types Packs/Day Years [...] st Contact Info) Description 12/26/2024 Procedure Pass [facility] Cardiac US [address] [place] [address] 03/14/2025 Procedure Pass [facility], Ct Scan - [facility] 30 [place] [address] 04/05/2025 8:00 AM EDT Appointment [facility], Ct Scan - [facility] 30 [place] [address] Delia Reyes MD 55 [facility] 148 [place] [address] JONH@[facility] 05/30/2025 3:30 PM EST Office Visit [facility] Pulmonary Associates 55 [facility], 2nd Floor, [address] [place] [address] Delia Reyes MD 55 [facility] 148 [place] [address] JONH@[facility] 01/08/2026 1:30 PM EDT Appointment [facility] Cardiac US [address] [place] [address] Papito Izaguirre MD [address] [place] [address] ALEXANDER@[facility] 01/08/2026 3:00 PM EDT Office Visit [facility] Cardiovascular Medicine 32 [facility], 5th Floor, [address] [place] [address] Papito Izaguirre MD [address] [place] [address] ALEXANDER@[facility] documented as of this encounter Visit Diagnoses Not on filedocumented in this encounter Additional Health Concerns Infection Onset Date Last Indicated Resolved Time CoV-Risk 09/10/2023 09/10/2023 09/10/2023 3:10 PM EST COVID-19 09/10/2023 09/10/2023 10/01/2023 1:23 AM EDT Assessment Noted Time PHQ-9 Depression Total Score: 14 022 3:36 PM EST documented as of this encounter Care Teams Primary Class Teacher Relationship Specialty Start Date End Date Pita Greene MD [facility]0 [place] [address] PCP - General Internal Medicine 01/31/22 Ty Lilly MD [facility]0 [place] [address] Internal Medicine 03/20/22 Papito Izaguirre MD [address] [place] [address] ALEXANDER@[email or web address] Cardiology 12/04/22 documented as of this encounter Additional Source Comments The information contained in this document represents components of the legal health record. It is not the complete legal health record.[facility]
--- OUTSIDE RECORDS SUMMARY | 2025-03-22 12:19 | XMS_ITS | Encounter Summary ---
Author Organization [facility] Address [address] [place] [address] [place] [address] Phone Care Team Providers Care Angle Furnaceman Name Role Phone Pita Greene MD Primary Care Provider [phone] Ty Lilly MD Unavailable [phone] Papito Izaguirre MD Unavailable Encounter Details Date Type Department Care Team (Late st Contact Info) Description 05/25/2022 Procedure Pass [facility], Ct Scan - [address] [address] Social History Tobacco Use Types Packs/Day Years [...] 8:27 PM EST Tomi Ruiz RN * [place] Suicide Severity Rating Scale (Screener/Recent Self-Report) Question [...] st Contact Info) Description 12/26/2024 Procedure Pass [facility] Cardiac US [address] [place] [address] 03/14/2025 Procedure Pass [address] [address] 04/05/2025 8:00 AM EDT Appointment [address] [address] Delia Reyes MD [address] [place] [address] JONH@[facility] 05/30/2025 3:30 PM EST Office Visit [facility] Pulmonary Associates 55 [facility], 2nd Floor, [address] [place] [address] Delia Reyes MD [address] [place] [address] JONH@[facility] 01/08/2026 1:30 PM EDT Appointment [facility] Cardiac US [address] [place] [address] Papito Izaguirre MD [address] [place] [address] ALEXANDER@[facility] 01/08/2026 3:00 PM EDT Office Visit [facility] Cardiovascular Medicine 32 [facility], 5th Floor, [address] [place] [address] Papito Izaguirre MD [address] [place] [address] ALEXANDER@[facility] documented as of this encounter Visit Diagnoses Not on filedocumented in this encounter Additional Health Concerns Infection Onset Date Last Indicated Resolved Time CoV-Risk 09/10/2023 09/10/2023 09/10/2023 3:10 PM EST COVID-19 09/10/2023 09/10/2023 10/01/2023 1:23 AM EDT Assessment Noted Time PHQ-9 Depression Total Score: 14 022 3:36 PM EST documented as of this encounter Care Teams Angle Furnaceman Relationship Specialty Start Date End Date Pita Greene MD [facility] [place] [address] PCP - General Internal Medicine 01/31/22 Ty Lilly MD [facility]0 [place] [address] Internal Medicine 03/20/22 Papito Izaguirre MD [address] [place] [address] ALEXANDER@[email or web address] Cardiology 12/04/22 documented as of this encounter Additional Source Comments The information contained in this document represents components of the legal health record. It is not the complete legal health record.[facility]
--- OUTSIDE RECORDS SUMMARY | 2025-03-22 12:19 | XMS_ITS | Encounter Summary ---
Author Organization [facility] Address [address] [place] [address] Phone Care Team Providers Care Manager Six Sigma Name Role Phone Ty Lilly MD Primary Care Provider [phone] Pita Greene MD Primary Care Provider [phone] Ty Lilly MD Unavailable [phone] Papito Izaguirre MD Unavailable [phone] Encounter Details Date Type Department Care Team (Late st Contact Info) Description 03/08/2018 Ancillary Orders [facility], X-Ray - [address] [place] [address] Leif GranadosLLANO, [place] [address] [place] [address] Midline thoracic back pain, unspecified chronicity Social History Tobacco Use Types Packs/Day Years [...] st Contact Info) Description 12/26/2024 Procedure Pass [facility] [place] [place] [address] [place] [address] 03/14/2025 Procedure Pass [facility], Ct [address] [address] 04/05/2025 8:00 AM EDT Appointment [facility], [address] [address] Delia Reyes MD [address] [place] [address] [email or web address] 05/30/2025 3:30 PM EST Office Visit [facility] [address] [place] [address], 2nd Floor, [address] [place] [address] Delia Reyes MD [address] [place] [address] [email or web address] 01/08/2026 1:30 PM EDT Appointment [facility] Card[facility] US [address] [place] [address] Papito Izaguirre MD [address] [place] [address] ALEXANDER@[email or web address] 01/08/2026 3:00 PM EDT Office Visit [facility] [address] [facility], 5th Floor, [address] [place] [address] Papito Izaguirre MD [address] [place] [address] ALEXANDER@[email or web address] documented as of this encounter Results * XR THORACIC SPINE 3 VIEW (03/08/2018 3:57 PM EDT) Anatomical Region Laterality Modality T-spine Radiographic Juliet ging 03/08/2018 4:16 PM EDT Impressions 03/08/2018 4:18 PM EDT Osteopenia and mild scoliosis. POS - [id number] Narrative 03/08/2018 4:18 PM EDT HISTORY: As above. No trauma. COMPARISON: None. THORACIC SPINE RADIOGRAPH FINDINGS: 3 views obtained. Diffuse osteopenia. Mild upper thoracic levoscoliosis. No fracture or malalignment. Multilevel endplate spurring. Disc spaces are maintained. No compression deformities or destructive bone lesions. Paraspinal soft tissues are normal. Procedure Note Susan Calderon MD - 03/08/2018 HISTORY: As above. No trauma. COMPARISON: None. THORACIC SPINE RADIOGRAPH FINDINGS: 3 views obtained. Diffuse osteopenia. Mild upper thoracic levoscoliosis.No fracture or malalignment. Multilevel endplate spurring. Disc spacesare maintained. No compression deformities or destructive bone lesions.Paraspinal soft tissues are normal. IMPRESSION: Osteopenia and mild scoliosis. POS - [id number] Leif Granados DC IMG XR SPINE Final Result documented in this encounter Visit Diagnoses Diagnosis Midline thoracic back pain, unspecified chronicity Midline thoracic back pain, unspecified chronicity documented in this encounter Additional Health Concerns Infection Onset Date Last Indicated Resolved Time CoV-Risk 09/10/2023 09/10/2023 09/10/2023 3:10 PM EST COVID-19 09/10/2023 09/10/2023 10/01/2023 1:23 AM EDT documented as of this encounter Care Teams Manager Six Sigma Relationship Specialty Start Date End Date Ty Lilly MD PCP - General Internal Medicine 03/08/18 01/30/22 Pita Greene MD [address] [place] [address] PCP - General Internal Medicine 01/31/22 Ty Lilly MD Internal Medicine 03/20/22 Papito Izaguirre MD [address] [place] [address] ALEXANDER@[email or web address] Cardiology 12/04/22 documented as of this encounter Additional Source Comments The information contained in this document represents components of the legal health record. It is not the complete legal health record.[facility]
--- OUTSIDE RECORDS SUMMARY | 2025-03-22 12:20 | XMS_ITS | Encounter Summary ---
Author Organization [facility] Address [address] [place] [address] [place] [address] Phone Care Team Providers Care Uppers Edge Burnisher Name Role Phone Pita Greene MD Primary Care Provider [phone] Ty Lilly MD Unavailable [phone] Papito Izaguirre MD Unavailable Encounter Details Date Type Department Care Team (Late st Contact Info) Description 04/09/2022 Procedure Pass [facility] PERIOPER[facility]IVE DEPT [address] [place] [id number] Social History Tobacco Use Types Packs/Day Years [...] 9:00 PM EDT Mimi Aaron, THAD * [place] Suicide Severity Rating Scale (Screener/Recent Self-Report) Question Answer Date of Assessment Author 1. Wish to be (Past 1 Month) No 04/11/2022 9:00 PM EDT Mimi Aaron RN 2. Non-Specific Active Suicidal Thoughts (Past 1 Month) No 04/11/2022 9:00 PM EDT Mimi Aaron RN 6. Suicidal Behavior (Lifetime) No 04/11/2022 9:00 PM EDT Mimi Aaron RN documented as of this encounter Plan of Treatment Upcoming Encounters Date Type Department Care Team (Late st Contact Info) Description 12/26/2024 Procedure Pass [facility] Cardiac US [address] [place] [address] 03/14/2025 Procedure Pass [address] [address] 04/05/2025 8:00 AM EDT Appointment [address] [address] Delia Reyes MD [address] [place] [address] [address] [place] [address] [email or web address] 05/30/2025 3:30 PM EST Office Visit [facility] [address] [facility], 2nd Floor, [address] [place] [address] Delia Reyes MD [address] [place] [address] JONH@[email or web address] 01/08/2026 1:30 PM EDT Appointment [facility] Cardiac US [address] [place] [address] Papito Izaguirre MD [address] [place] [address] YAW-[address] [place] [address] AELXANDER@[email or web address] 01/08/2026 3:00 PM EDT Office Visit [facility] Cardiovascular Medicine [address] [facility], 5th Floor, [address] [place] [address] Papito Izaguirre MD [address] [place] [address] ALEXANDER@[email or web address] documented as of this encounter Visit Diagnoses Not on filedocumented in this encounter Additional Health Concerns Infection Onset Date Last Indicated Resolved Time CoV-Risk 09/10/2023 09/10/2023 09/10/2023 3:10 PM EST COVID-19 09/10/2023 09/10/2023 10/01/2023 1:23 AM EDT documented as of this encounter Care Teams Uppers Edge Burnisher Relationship Specialty Start Date End Date Pita Greene MD [address] [place] [address] PCP - General Internal Medicine 01/31/22 Ty Lilly MD [address] [place] [address] Internal Medicine 03/20/22 Papito Izaguirre MD [address] [place] [address] ALEXANDER@[email or web address] Cardiology 12/04/22 documented as of this encounter Additional Source Comments The information contained in this document represents components of the legal health record. It is not the complete legal health record.[facility]
--- NOTE | 2025-03-22 12:46 | MHC.AU.HA3 ---
Hearing Instrument Follow-Up- Binaural Date of Visit: 03/22/25 Left Ear: Make, Model, Color, Serial Number: Amanda De Jesus P 70-312 SN: [id number] Color: Black [employer] Repair Warranty: 05/13/2026 [employer] Loss and Damage Warranty: USED 03/22/2025 [facility] Service Plan: 02/25/2023, extended to 03/28/2023 per KG Battery Size: 312 Property Maintenance Supervisor/Slim Tube: Power Type of Wax Guard: CeruStop Dispensed By: [facility] Date of Fittin02/25/2023 Follow-Up Summary: Lost left ROJAS in car, found it but it was reportedly broken, making hissing/humming noises, battery compartment difficult to close. Scheduled appt to have it repaired; however, in the meantime lost it again. Has been wearing 's HAs, even right one. Advised against wearing other people's HAs given difference in hearing loss. Juliana reported she uses VC on brendan, turning right down to -5 and left up to +5. ROJAS still under replacement warranty. Quoted $350.00. Migel reported for that conn she wanted new color and full shell. Black ROJAS is the reason she lost it and she should not have listened to previous seafood specialist who told her to get black. Wanted full shell because when she pushed on HS, she could hear better, thinks it blocks out more background noise. Confirmed she wanted full shell many times, as she previously was upset when HS came back too big. Called [employer] customer service. Per Hien, can change color/style for replacement device for no extra charge. Migel requested new impression, noting she gained 20 lbs and the previous remake S. [place] fit was still not right noting canal too short. Showed color options, advised most patients choose pink, Migel chose rashid. Impression taken, , without incident. Sent to [employer]. Advised $350.00 will be due at pick up man. Recommendations: Patient will be contacted when materials have arrived. Diagnosis Code(s): Primary Diagnosis: H90.42 SNHL Unilateral Left Side, W/Unrestricted Contralateral Hearing Signature: Provider: Rosa Maria Estevez, [facility]
== END 2025-03-22 10:09 | disposition home or self-care (01) ==
LOC: HO.HAP 10:08
PROVIDERS: Visit Provider Internal Medicine
DX: Z13.89 Encounter for screening for other disorder (principal)

== ENCOUNTER 2025-05-03 09:40 | Outpatient (REF) | payer SELFPAY ==
--- NOTE | 2025-05-03 10:52 | MHC.AU.HA3 ---
Hearing Instrument Follow-Up- Binaural Date of Visit: 05/03/25 Left Ear: Make, Model, Color, Serial Number: Amanda De Jesus P [id number] SN: [id number] Color: Cuellar [employer] Faculty Member Repair Warranty: 05/13/2026 [employer] Faculty Member Loss and Damage Warranty: USED 03/22/2025 [facility] Service Plan: 02/25/2023, extended to 03/28/2023 per KG Battery Size: 312 Prison Keeper/Slim Tube: Power Type of Wax Guard: CeruStop Dispensed By: [facility] Date of Fittin02/25/2023 Follow-Up Summary: Fit L&D replacement ROJAS. Ran feedback analyzer and real ear measures. Migel noted the shell and faceplate were slightly different colors but was okay with it. Noted ROJAS felt better than previous ITC. Reconnected to [employer] brendan. Migel inquired about new warranty. Advised warranty follows the original ROJAS, repair warranty until 05/13/2026. Explained that L&D replacement has been used and if ROJAS lost again, it is not covered. Recommendations: Hearing instrument follow-up or maintenance as needed. Please contact our clinic with any questions or concerns. Diagnosis Code(s): Primary Diagnosis: H90.42 SNHL Unilateral Left Side, W/Unrestricted Contralateral Hearing Signature: Provider: Rosa Maria Estevez, [facility]
--- OUTSIDE RECORDS SUMMARY | 2025-05-03 11:14 | XMS_ITS | Encounter Summary ---
Author Organization [facility] Address [address] [place] [address] Phone Care Team Providers Care Assembly Machine Tool Setter Name Role Phone Pita Greene MD Primary Care Provider [phone] Ty Lilly MD Unavailable [phone] Papito Izaguirre MD Unavailable [phone] Encounter Details Date Type Department Care Team (Late st Contact Info) Description 07/11/2022 Procedure Pass [facility], Ct Scan - [address] [address] Social History Tobacco Use Types Packs/Day Years [...] st Contact Info) Description 12/26/2024 Procedure [place] [facility] [place] [address] [place] [address] 01/08/2026 1:30 PM EDT Appointment [facility] [place] [address] [place] [address] Papito Izaguirre MD [address] [address] ALEXANDER@[email or web address] 01/08/2026 3:00 PM EDT Office Visit [facility] [place] [address] [facility], 5th Floor, [address] [place] [address] Papito Izaguirre MD [address] [place] [address] ALEXANDER@[email or web address] documented as of this encounter Visit Diagnoses Not on filedocumented in this encounter Additional Health Concerns Infection Onset Date Last Indicated Resolved Time CoV-Risk 09/10/2023 09/10/2023 09/10/2023 3:10 PM EST COVID-19 09/10/2023 09/10/2023 10/01/2023 1:23 AM EDT Assessment Noted Time PHQ-9 Depression Total Score: 14 022 3:36 PM EST documented as of this encounter Care Teams Assembly Machine Tool Setter Relationship Specialty Start Date End Date Pita Greene MD [address] [place] [address] PCP - General Internal Medicine 01/31/22 Ty Lilly MD [address] [place] [address] Internal Medicine 03/20/22 Papito Izaguirre MD [address] [place] [address] ALEXANDER@[email or web address] Cardiology 12/04/22 documented as of this encounter Additional Source Comments The information contained in this document represents components of the legal health record. It is not the complete legal health record.[facility]
--- OUTSIDE RECORDS SUMMARY | 2025-05-03 11:14 | XMS_ITS | Encounter Summary ---
Author Organization [facility] Address [address] [place] [address] [place] [address] Phone Care Team Providers Care Caul Fat Puller Name Role Phone Pita Greene MD Primary Care Provider [phone] Ty Lilly MD Unavailable [phone] Papito Izaguirre MD Unavailable [phone] Encounter Details Date Type Department Care Team (Late st Contact Info) Description 11/23/2023 Procedure Pass [facility] Cardiac US [address] [place] [address] Social History Tobacco Use Types Packs/Day Years [...] st Contact Info) Description 12/26/2024 Procedure Pass [facility] Cardiac US [address] [place] [address] 01/08/2026 1:30 PM EDT Appointment [facility] Cardiac US [address] [place] [address] Papito Izaguirre MD [address] [place] [address] ALEXANDER@[email or web address] 01/08/2026 3:00 PM EDT Office Visit [facility] Cardiovascular Medicine [address] [facility], 5th Floor, [address] [place] [address] Papito Izaguirre MD [address] [place] [address] ALEXANDER@[email or web address] documented as of this encounter Visit Diagnoses Not on filedocumented in this encounter Additional Health Concerns Assessment Noted Time PHQ-9 Depression Total Score: 14 022 3:36 PM EST documented as of this encounter Care Teams Caul Fat Puller Relationship Specialty Start Date End Date Pita Greene MD [address] [place] [address] PCP - General Internal Medicine 01/31/22 Ty Lilly MD [address] [place] [address] Internal Medicine 03/20/22 Papito Izaguirre MD [address] [place] [address] ALEXANDER@[email or web address] Cardiology 12/04/22 documented as of this encounter Additional Source Comments The information contained in this document represents components of the legal health record. It is not the complete legal health record.[facility]
--- OUTSIDE RECORDS SUMMARY | 2025-05-03 11:14 | XMS_ITS | Encounter Summary ---
Author Organization [facility] Address [address] [place] [address] [place] [address] Phone Care Team Providers Care Director Of Player Personnel Name Role Phone Pita Greene MD Primary Care Provider [phone] Ty Lilly MD Unavailable [phone] Papito Izaguirre MD Unavailable [phone] Encounter Details Date Type Department Care Team (Late st Contact Info) Description 05/25/2022 Procedure Pass [facility], Ct Scan - [address] [address] Social History Tobacco Use Types Packs/Day Years [...] 8:27 PM EST Tomi Ruiz RN * [place] Suicide Severity Rating Scale (Screener/Recent Self-Report) Question [...] st Contact Info) Description 12/26/2024 Procedure Pass [facility] Card[facility] US [address] [place] [address] 01/08/2026 1:30 PM EDT Appointment [facility] Card[facility] US [address] [place] [address] Papito Izaguirre MD [address] [place] [address] ALEXANDER@[email or web address] 01/08/2026 3:00 PM EDT Office Visit [facility] Cardiovascular Medicine [address] [place] [address], 5th Floor, [address] [place] [address] Papito Izaguirre MD [address] [place] [address] ALEXANDER@[email or web address] documented as of this encounter Visit Diagnoses Not on filedocumented in this encounter Additional Health Concerns Infection Onset Date Last Indicated Resolved Time CoV-Risk 09/10/2023 09/10/2023 09/10/2023 3:10 PM EST COVID-19 09/10/2023 09/10/2023 10/01/2023 1:23 AM EDT Assessment Noted Time PHQ-9 Depression Total Score: 14 022 3:36 PM EST documented as of this encounter Care Teams Director Of Player Personnel Relationship Specialty Start Date End Date Pita Greene MD [address] [place] [address] PCP - General Internal Medicine 01/31/22 Ty Lilly MD [address] [place] [address] Internal Medicine 03/20/22 Papito Izaguirre MD [address] [place] [address] ALEXANDER@[email or web address] Cardiology 12/04/22 documented as of this encounter Additional Source Comments The information contained in this document represents components of the legal health record. It is not the complete legal health record.[facility]
--- OUTSIDE RECORDS SUMMARY | 2025-05-03 11:14 | XMS_ITS | Encounter Summary ---
Author Organization [facility] Address [address] [place] [address] [place] [address] Phone Care Team Providers Care Transplant Nurse Name Role Phone Pita Greene MD Primary Care Provider [phone] Ty Lilly MD Unavailable [phone] Papito Izaguirre MD Unavailable [phone] Encounter Details Date Type Department Care Team (Late st Contact Info) Description 05/25/2022 Procedure Pass [facility], Ct Scan - [address] [address] Social History Tobacco Use Types Packs/Day Years [...] 8:27 PM EST Tomi Ruiz RN * [place] Suicide Severity Rating Scale (Screener/Recent Self-Report) Question [...] st Contact Info) Description 12/26/2024 Procedure Pass [facility] [place] US [address] [place] [address] 01/08/2026 1:30 PM EDT Appointment [facility] [place] US [address] [place] [address] Papito Izaguirre MD [address] [place] [address] ALEXANDER@[facility] 01/08/2026 3:00 PM EDT Office Visit [facility] [place] Cardiovascular Medicine [address] [place] [address], 5th Floor, [address] [place] [address] Papito Izaguirre MD [address] [place] [address] ALEXANDER@[facility] documented as of this encounter Visit Diagnoses Not on filedocumented in this encounter Additional Health Concerns Infection Onset Date Last Indicated Resolved Time CoV-Risk 09/10/2023 09/10/2023 09/10/2023 3:10 PM EST COVID-19 09/10/2023 09/10/2023 10/01/2023 1:23 AM EDT Assessment Noted Time PHQ-9 Depression Total Score: 14 022 3:36 PM EST documented as of this encounter Care Teams Transplant Nurse Relationship Specialty Start Date End Date Pita Greene MD [address] [place] [address] PCP - General Internal Medicine 01/31/22 Ty Lilly MD [address] [place] [address] Internal Medicine 03/20/22 Papito Izaguirre MD [address] [place] [address] ALEXANDER@[email or web address] Cardiology 12/04/22 documented as of this encounter Additional Source Comments The information contained in this document represents components of the legal health record. It is not the complete legal health record.[facility]
--- OUTSIDE RECORDS SUMMARY | 2025-05-03 11:14 | XMS_ITS | Encounter Summary ---
Author Organization [facility] Address [address] [place] [address] [place] [address] Phone Care Team Providers Care Tank Pumper Panelboard Name Role Phone Ty Lilly MD Primary Care Provider [phone] Pita Greene MD Primary Care Provider [phone] Ty Lilly MD Unavailable [phone] Papito Izaguirre MD Unavailable [phone] Encounter Details Date Type Department Care Team (Late st Contact Info) Description 01/10/2022 Procedure Pass [facility] [place], Andrea [address] [facility], 2nd Floor, [address] [place] [address] Social History Tobacco Use Types Packs/Day Years [...] st Contact Info) Description 12/26/2024 Procedure Pass [facility] Cardiac US [address] [place] [address] 01/08/2026 1:30 PM EDT Appointment [facility] Cardiac US [address] [place] [address] Papito Izaguirre MD [address] [place] [address] ALEXANDER@[email or web address] 01/08/2026 3:00 PM EDT Office Visit [facility] Cardiovascular Medicine [address] [facility], 5th Floor, [address] [place] [address] Papito Izaguirre MD [address] [place] [address] ALEXANDER@[email or web address] documented as of this encounter Visit Diagnoses Not on filedocumented in this encounter Additional Health Concerns Infection Onset Date Last Indicated Resolved Time CoV-Risk 09/10/2023 09/10/2023 09/10/2023 3:10 PM EST COVID-19 09/10/2023 09/10/2023 10/01/2023 1:23 AM EDT documented as of this encounter Care Teams Tank Pumper Panelboard Relationship Specialty Start Date End Date Ty Lilly MD PCP - General Internal Medicine 03/08/18 01/30/22 Pita Greene MD [address] [place] [address] PCP - General Internal Medicine 01/31/22 Ty Lilly MD Internal Medicine 03/20/22 Papito Izaguirre MD [address] [place] [address] ALEXANDER@[email or web address] Cardiology 12/04/22 documented as of this encounter Additional Source Comments The information contained in this document represents components of the legal health record. It is not the complete legal health record.[facility]
--- OUTSIDE RECORDS SUMMARY | 2025-05-03 11:14 | XMS_ITS | Encounter Summary ---
Author Organization [facility] Address [address] [place] [address] Phone Care Team Providers Care Insurance Service Representative Name Role Phone Pita Greene MD Primary Care Provider [phone] Ty Lilly MD Unavailable [phone] Papito Izaguirre MD Unavailable [phone] Encounter Details Date Type Department Care Team (Late st Contact Info) Description 02/27/2022 Procedure Pass [facility] [address] [place] [id number] Social History Tobacco Use Types Packs/Day Years [...] st Contact Info) Description 12/26/2024 Procedure Pass [facility] [place] [address] [place] [address] 01/08/2026 1:30 PM EDT Appointment [facility] [address] [place] [address] Papito Izaguirre MD [address] [address] [email or web address] 01/08/2026 3:00 PM EDT Office Visit [facility] [address] [facility], 5th Floor, [address] [place] [address] Papito Izaguirre MD [address] [place] [address] [email or web address] documented as of this encounter Visit Diagnoses Not on filedocumented in this encounter Additional Health Concerns Infection Onset Date Last Indicated Resolved Time CoV-Risk 09/10/2023 09/10/2023 09/10/2023 3:10 PM EST COVID-19 09/10/2023 09/10/2023 10/01/2023 1:23 AM EDT documented as of this encounter Care Teams Insurance Service Representative Relationship Specialty Start Date End Date Pita Greene MD [address] [place] [phone] PCP - General Internal Medicine 01/31/22 Ty Lilly MD [address] [place] [phone] Internal Medicine 03/20/22 Papito Izaguirre MD [address] [place] [phone] [email or web address] Cardiology 12/04/22 documented as of this encounter Additional Source Comments The information contained in this document represents components of the legal health record. It is not the complete legal health record.[facility]
--- OUTSIDE RECORDS SUMMARY | 2025-05-03 11:14 | XMS_ITS | Encounter Summary ---
Author Organization [facility] Address [address] [place] [address] [place] [phone] Phone Care Team Providers Care Piece Work Checker Name Role Phone Pita Greene MD Primary Care Provider [phone] Ty Lilly MD Unavailable [phone] Papito Izaguirre MD Unavailable [phone] Encounter Details Date Type Department Care Team (Late st Contact Info) Description 12/24/2024 Procedure Pass [facility], Ct Scan - [address] [address] Social History Tobacco Use Types Packs/Day Years [...] 9:11 AM EDT Keith Conteh RN * [place] Suicide Severity Rating Scale (Screener/Recent Self-Report) Question [...] Description 12/26/2024 Procedure Pass [facility] [address] [place] [address] 01/08/2026 1:30 PM EDT Appointment [facility] [address] [place] [address] Papito Izaguirre MD [address] [place] [phone] [email or web address] 01/08/2026 3:00 PM EDT Office Visit [facility] [address] [facility], 5th Floor, [address] [place] [address] Papito Izaguirre MD [address] [place] [address] [email or web address] documented as of this encounter Visit Diagnoses Not on filedocumented in this encounter Additional Health Concerns Assessment Noted Time PHQ-9 Depression Total Score: 14 022 3:36 PM EST documented as of this encounter Care Teams Piece Work Checker Relationship Specialty Start Date End Date Pita Greene MD [address] [place] [address] PCP - General Internal Medicine 01/31/22 Ty Lilly MD [address] [place] [address] Internal Medicine 03/20/22 Papito Izaguirre MD [address] [place] [address] [email or web address] Cardiology 12/04/22 documented as of this encounter Additional Source Comments The information contained in this document represents components of the legal health record. It is not the complete legal health record.[facility]
--- OUTSIDE RECORDS SUMMARY | 2025-05-03 11:14 | XMS_ITS | Encounter Summary ---
Author Organization [facility] Address [address] [place] [address] Phone Care Team Providers Care Broadcast Supervisor Name Role Phone Pita Greene MD Primary Care Provider [phone] Ty Lilly MD Unavailable [phone] Papito Izaguirre MD Unavailable [phone] Encounter Details Date Type Department Care Team (Late st Contact Info) Description 05/22/2022 Procedure Pass [facility], [address] [place] [address] Social History Tobacco Use Types Packs/Day Years [...] 05/25/2022 8:27 PM Tomi Liz RN * [place] Suicide Severity Rating Scale (Screener/Recent Self-Report) Question [...] [facility] [address] [place] [address] 01/08/2026 1:30 PM EDT Appointment [facility] US [address] [place] [address] Papito Izaguirre MD [address] [place] [address] [email or web address] 01/08/2026 3:00 PM EDT Office Visit [facility] Cardiovascular Medicine [address] [facility], 5th Floor, [address] [place] [address] Papito Izaguirre MD [address] [place] [address] [email or web address]@[email or web address] documented as of this encounter Visit Diagnoses Not on filedocumented in this encounter Additional Health Concerns Infection Onset Date Last Indicated Resolved Time CoV-Risk 09/10/2023 09/10/2023 09/10/2023 3:1 0 PM EST COVID-19 09/10/2023 09/10/2023 10/01/2023 1:23 AM EDT Assessment Noted Time PHQ-9 Depression Total Score: 14 022 3:36 PM EST documented as of this encounter Care Teams Broadcast Supervisor Relationship Specialty Start Date End Date Pita Greene MD [address] [place] [address] PCP - General Internal Medicine 01/31/22 Ty Lilly MD [address] [place] [address] Internal Medicine 03/20/22 Papito Izaguirre MD [address] [place] [address] [email or web address] Cardiology 12/04/22 documented as of this encounter Additional Source Comments The information contained in this document represents components of the legal health record. It is not the complete legal health record.[facility]
--- OUTSIDE RECORDS SUMMARY | 2025-05-03 11:14 | XMS_ITS | Encounter Summary ---
Author Organization [facility] Address [address] [place] [address] Phone Care Team Providers Care Dressed Poultry Grader Name Role Phone Pita Greene MD Primary Care Provider [phone] Ty Lilly MD Unavailable [phone] Papito Izaguirre MD Unavailable [phone] Reason for Referral * MRI/CAT Scan (Emergency) - Closed Specialty Diagnoses / Procedures Referred By Leatha jose Referred To Contact Radiology Diagnoses Preop cardiovascular exam Procedures CT Cardiac CT Angio Coronary Arteries CHG CT ANGIO HRT CORNRY ART/BYPASS GRFTS CONTRST 3D POST CHG CT HEART CONTRAST EVAL CARDIAC STRUCT/MORPH Anca Rice FNP Phone: tel: fax: mailto:[email or web address] [phone] Phone: tel: Referral ID Status Reason Start Date Expiration Date Visits Re quested Visits Authorized [id number] Closed 02/03/2022 03/05/2022 1 1 Encounter Details Date Type Department Care Team (Latest Contact Info) Description 02/03/2022 Ancillary Orders [facility] Division of Cardiac Surgery [address] [place] [address], 6th Floor, [address] [place] [address] Anca Rice FNP [address] [facility] [place] [address] [place] [address] [email or web address] Preop cardiovascular exam Social History Tobacco Use [...] Upcoming Encounters Date Type Department Care Team ([facility] st Contact Info) Description 12/26/2024 Procedure Pass [facility] Cardiac US [address] [place] [address] 01/08/2026 1:30 PM EDT Appointment [facility] Cardiac US [address] [place] [address] Papito Izaguirre MD [address] [place] [address] [email or web address] 01/08/2026 3:00 PM EDT Office Visit [facility] Cardiovascular Medicine [address] [place] [address], 5th Floor, [address] [place] [address] Papito Izaguirre MD [address] [place] [address] [email or web address] documented as of this encounter Results * [...] pericardial effusion. No bypass grafts are identified. ABSENTEE-SHAWNEE CORONARY ARTERIES: There is no evidence for [...] AND FUNCTION: The left atrium is enlarged [id number] mm in AP diameter. Right atrial enlargement. There are no thrombi inthe left ventricle. There are no regional wall motion abnormalities. No evidence of pericardial effusion. No bypass grafts are identified. ABSENTEE-SHAWNEE CORONARY ARTERIES: There is no evidence for [...] electronically notify appropriate providers of potentially importantfindings. Lopez Reyes MD IMG CT CARDIAC Final Resu lt documented in this encounter Visit Diagnoses Diagnosis Preop cardiovascular exam Pre-operative cardiovascular examination Preop cardiovascular exam Pre-operative cardiovascular examination documented in this encounter Additional Health Concerns Infection Onset Date Last Indicated Resolved Time CoV-Risk 09/10/2023 09/10/2023 09/10/2023 3:10 PM EST COVID-19 09/10/2023 09/10/2023 10/01/2023 1:23 AM EDT documented as of this encounter Care Teams Dressed Poultry Grader Relationship Specialty Start Date End Date Pita Greene MD [address] [place] [address] PCP - General Internal Medicine 01/31/22 Ty Lilly MD [address] [place] [address] Internal Medicine 03/20/22 Papito Iazguirre MD [address] [place] [address] [email or web address] Cardiology 12/04/22 documented as of this encounter Additional Source Comments The information contained in this document represents components of the legal health record. It is not the complete legal health record.[facility]
--- OUTSIDE RECORDS SUMMARY | 2025-05-03 11:14 | XMS_ITS | Clinical Summary ---
Author Organization [facility] Address [address] [place] [address] Phone Care Team Providers Care Respiratory Manager Name Role Phone Pita Greene MD Primary Care Provider Ty Lilly MD Unavailable [phone] Papito Izaguirre MD Unavailable [phone] Allergies Active Allergy Reactions Criticality Noted Date Comments Amoxicillin-Pot Clavulanate 05/15/20 22 diarrhea Erythromycin Rash Low 12/20/2015 Other Diarrhea,Headaches,F ev er,Hives,Itching,Rash, Swelling Low 06/07/2022 Sulfa (Sulfonamide Antibiotics) Rash,Fever,Headaches Low 02/17/2022 Sulfamethoxazole Rash Low 01/10/2022 Sulfamethoxazole-Trimethoprim Swelling High 2015 Triamterene Diarrhea High 03/25/2022 Medications buPROPion (WELLBUTRIN XL) 150 MG ER 24 hr tablet Take 150 mg by mouth daily. Active fexofenadine (DESHAUN) 180 MG tablet Take 180 mg by mouth daily. Active azelastine (ASTELIN) 137 mcg (0.1 %) nasal spray 2 sprays by Nasal route 2 (two) times a day. Taking once daily 09/17/19 22 Active fluticasone propionate (FLONASE) 50 mcg/actuation nasal spray 2 sprays by Nasal route daily. 12/14/19 22 Active lamoTRIgine (LAMICTAL) 150 MG IMMEDIATE release tablet Take 150 mg by mouth daily. 01/04/20 Active raloxifene (EVISTA) 60 mg tablet Take 60 mg by mouth daily. 05/02/20 Active aspirin 81 MG EC tablet Take 81 mg by mouth daily. Active ondansetron (ZOFRAN-ODT) 4 MG disintegrating tablet Take 1 tablet (4 mg total) by mouth every 8 (eight) hours as needed. 20 tablet 09/10/19 24 Active Additional Information Patient not taking.Reported on 04/12/2025 amoxicillin (AMOXIL) 500 MG capsuleIndications :S/P mitral valve repair TAKE 4 CAPSULES BY MOUTH 1 HOUR PRIOR TO DENTAL PROCEDURES/VIVIEN RYAN 8 capsule 3 12/02/19 24 Active cyclobenzaprine (FLEXERIL) 5 MG tablet Take by mouth 3 (three) times a day as needed for muscle spasms. Active amoxicillin-clavul anate (AUGMENTIN) 875-125 mg per tablet 08/29/19 25 Active clonazePAM (KLONOPIN) 1 MG tablet TAKE 1 TABLET 3 TIMES DAILYAS NEEDED Active tamsulosin (FLOMAX) 0.4 mg Cap Take 1 capsule (0.4 mg total) by mouth daily for 14 days. 14 capsule 12/25/19 25 Active oxyCODONE 5 MG immediate release tablet Take 1 tablet (5 mg total) by mouth every 6 (six) hours as needed for pain (specific location in comments). Partial fill ok 12 tablet 12/25/19 25 Active ondansetron (ZOFRAN-ODT) 4 MG disintegrating tablet Take 1 tablet (4 mg total) by mouth every 8 (eight) hours as needed for nausea. 10 tablet 12/25/19 25 Active Additional Information Patient not taking.Reported on 04/12/2025 promethazine (PHENERGAN) 25 MG tablet Take 1 tablet (25 mg total) by mouth every 6 (six) hours as needed for nausea. 20 tablet 12/25/19 25 Active Additional Information Patient not taking.Reported on 04/12/2025 Active Problems Problem Noted Date Diagnosed Date History of mitral valve repair 12/26/2024 Atelectasis of right lung 08/18/2022 Posttraumatic stress disorder 02/05/2022 Osteoarthritis of multiple joints 01/10/2022 Seasonal allergic rhinitis 01/10/2022 Seasonal mood disorder 01/10/2022 Thyroid nodule 01/10/2022 Hypercholesterolemia 12/27/2021 Mitral regurgitation 12/27/2021 Adult ADHD 12/11/2021 Systolic murmur 12/11/2021 Post-concussion vertigo 12/02/2021 Generalized anxiety disorder 09/18/2009 Encounters Date Type Department Care Team Description 04/12/2025 2:20 PM EDT Office Visit [facility] at [address] [place] [address] Daysi Martin, LUIZ Sore throat (Primary Dx) 04/11/2025 4:00 PM EDT Telemedicine [facility] [address] [facility], 2nd Floor, [address] [place] [address] Delia Reyes MD Atelectasis of right lung (Primary Dx) 04/05/2025 7:53 AM EDT - 04/05/2025 11:59 PM EDT Hospital Encounter [facility] Scan [address] [address] Delia Reyes MD Discharge Disposition: Home or Self Care 03/14/2025 Procedure Pass [facility] Scan [address] [address] 03/14/2025 Orders Only [facility] [address] [place] [address], 2nd Floor, [address] [place] [address] Delia Reyes MD Atelectasis of right lung (Primary Dx) 03/06/2025 2:05 PM EDT - 03/06/2025 11:59 PM EDT Hospital Encounter [facility] X-Ray - [address] [address] Delia Reyes MD Discharge Disposition: Home or Self Care from Last 3 Months Immunizations Immunization Administration Dates Next Due DTaP 05/25/2014 INFLUENZA, SPLIT VIRUS, TRIVALENT PF 03/23/2012 INFLUENZA, SPLIT VIRUS, TRIV ALENT W/ PRESERVATIVE IM 04/25/2022,04/13/2018,03/15/2017,2015,05/09/2015,05/04/2014,04/13/2013 Influenza Quadrivalent MDCK Preservative Free IM 04/13/2018,03/15/2017 Influenza Quadrivalent Prese rvative Free IM 04/15/2022(Deferred: Patient Refused),03/13/2021,04/07/2020 Influenza Recombinant Karina valent Preservative Free IM 03/21/2019 Influenza, whole 03/23/2019, 1,05/14/2010,2008 MMR 11/29/2018 Td, unspecified formulation 01/17/2025 Tetanus toxoid, unspecified formulation 03/13/2004 Family History Medical History Relation Comments Allergic rhinitis Brother Heart murmur Brother Hypertension Brother Allergic rhinitis Daughter Celiac disease Daughter Pericarditis Daughter Hypertension Father Lung cancer Father Arthritis Mother Dementia Mother Diabetes Mother Heart failure Mother Obesity Mother Parkinsonism Mother Psychiatric disorder Mother Mitral valve prolapse Paternal Cousin Mitral valve prolapse Paternal Uncle Allergic rhinitis Sister Graves' disease Sister Obesity Sister ADD / ADHD Son Allergic rhinitis Son Relation Status Comments Brother Daughter Alive Father Mother Paternal Cousin Alive Paternal Uncle Sister Son Alive Social History Tobacco Use Types Packs/Day Years Used Date Smoking Tobacco: Never Smokeless Tobacco: Never Tobacco Cessation:Counseling Given: Not Answered Comments:father did of lung cancer was a [...] Orientation Straight 06/07/2022 12 :42 PM EST Last Filed Vital Signs Vital Sign Reading Time Taken Comments Blood Pressure 140/96 04/12/2025 3:38 PM EDT Pulse 76 04/12/2025 3:38 PM EDT Temperature 36.8 C (98.2 F) 04/12/2025 3:38 PM EDT Respiratory Rate 20 04/12/2025 3:38 PM EDT Oxygen Saturation 98% 04/12/2025 3:38 PM EDT Inhaled Oxygen Concentration 30% 04/10/2022 1 2:00 PM EDT Weight 77.1 kg (170 lb) 04/12/2025 3:38 PM EDT Height 170.2 cm (5' 7 ) 04/12/2025 3:38 PM EDT Body Mass Index 26.63 04/12/2025 3:38 PM EDT Plan of Treatment Upcoming Encounters Date Type Department Care Team (Late st Contact Info) Description 12/26/2024 Procedure Pass [facility] Cardiac US [address] [place] [address] 01/08/2026 1:30 PM EDT Appointment [facility] Cardiac US [address] [place] [address] Papito Izaguirre MD [address] [place] [address] [email or web address] 01/08/2026 3:00 PM EDT Office Visit [facility] Cardiovascular Medicine [address] [facility], 5th Floor, [address] [place] [address] Papito Izaguirre MD [address] [place] [address] [email or web address] Health Maintenance Due Date Last Done Comments LIPID PANEL 1962 HEPATITIS C SCREENING 01/16/1980 HIV ONE-TIME SCREENING (18-65 YEARS) 01/16/1980 PAP SMEAR 1983 MAMMOGRAM 2002 COLOGUARD 2007 COLONOSCOPY 2007 COLORECTAL CANCER SCREENING 2007 FIT TEST 2007 FOBT 2007 SIGMOIDOSCOPY 2007 VIRTUAL COLONOSCOPY 2007 PNEUMOCOCCAL VACCINES (50+ years) (1 of 1 - PCV) 01/16/2012 ZOSTER VACCINES (1 of 2) 01/16/2012 DEPRESSION SCREENING 05/21/2023 05/21/2022 COVID-19 VACCINE (2024- season) 2025 07/15/2022, 05/15/2022, 12/28/2021, Additional history exists SCREENING FOR DIABETES 04/15/2025 04/15/2022 Adult Td,Tdap Booster 01/17/2035 01/17/2025 RSV VACCINE (1 - 1-dose 75+ series) 2037 SMOKING STATUS SCREENING (Once After 26 Yrs) Completed 08/31/2024 INFLUENZA VACCINE Completed 03/03/2025, , 02/27/2023, Additional history exists HEPATITIS A VACCINES Aged Out No long er eligible based on patient's age to complete this topic HIB VACCINES Aged Out No longer eligi ble based on patient's age to complete this topic MENINGOCOCCAL VACCINES (ACWY) Aged Out No longer eligible based on patient's age to complete this topic MENINGOCOCCAL VACCINES (B) Aged Out N o longer eligible based on patient's age to complete this topic Medical Devices Implanted Type Area Cutter In Device Identifier Shelf Expiration Date Model / Serial / Lot Ring Annuloplasty 32mm Mitral Keith Richey Eligoy Band Silicone Rubber Polyester Cover - [id number] Implanted:Qty: 1 on 04/09/2022 by Tess Wilson MD at [facility] N/A: Heart [employer] 05/26/2026 [id number] / [id number] / Procedures Procedure Name Priority Date/Time Associated Diagnosis Comments POCT COVID-19 RT-PCR/INFLUENZA A & B/RSV CEPHEID Routine 04/12/2025 2:41 PM EDT POCT RAPID STREP A Routine 04/12/2025 2: [address] CHEST WITH CONTRAST Routine 04/05/2025 8:12 AM EDT Atelectasis of right lung XR CHEST PA AND LATERAL 2 VIEWS Routine 03/06/2025 2:14 PM EDT Atelectasis of right lung from Last 3 Months Results * POCT COVID-19 RT-PCR/Influenza A & B/RSV (Cepheid) (04/12/2025 2:41 PM EDT) [facility] RSV PCR Negative Negative [facility] SARS-CoV-2 (COVID-19) Negative Negative [facility] POC Influenza A PCR Negative Negative [facility] Influenza B PCR Negative Negative [facility] 04/12/2025 2:41 PM EDT 04/12/2025 3:19 PM EDT us Daysi Martin NP POINT OF CARE TEST ORDERAB LES Final Result Performing Organization Address City/[facility]/ZIP Co de Phone Number [facility] [address] [phone] * POCT Rapid Strep A (04/12/2025 2:41 PM EDT) [facility] Strep A, PCR Not Detected Not Detected [facility] 04/12/2025 2:41 PM EDT 04/12/2025 3:06 PM EDT us Daysi Martin ENGINEERING TECHNICAL WRITER POINT OF CARE TEST ORDERAB LES Final Result [facility] [address] [phone] * CT CHEST WITH CONTRAST (04/05/2025 8:12 AM EDT) Anatomical Region Laterality Modality Chest Computed Tomogra phy 04/06/2025 10:4 0 AM EDT Impressions 04/06/2025 10:52 AM EDT Right middle lobe consolidation/volume loss, decreased since 07/23/2022, most likely represent atelectasis/scar. No underlying mass or mucous plugging. Narrative 04/06/2025 10:[address] CHEST WITH CONTRAST Referring clinician's provided indication for this examination in [facility]: *Abnormal imaging; Assess right middle lobe which appears to have partial atelectasis, look for endobronchial lesions plugging TECHNIQUE: Multidetector CT of the chest was performed with intravenous contrast using tailored dose modulation techniques. COMPARISON: CT CHEST WITH CONTRAST ; CT ANGIO CHEST WITH AND WITHOUT CONTRAST ; XR CHEST PA AND LATERAL 2 VIEWS FINDINGS: Devices/Tubes/Lines: None. Lungs: Elevated right hemidiaphragm, with right middle lobe peridiaphragmatic consolidation/volume loss, which is decreased since 07/23/2022 CT, currently 31 x 13 x 14 mm, previously 38 x 25 x 21 mm. No underlying mass or mucous plugging is visualized. No new or enlarging nodules. Pleura: No pleural effusion or pneumothorax. Mediastinum: No suspicious thyroid nodules. Aberrant right subclavian artery origin, an anatomic variant. No pleural effusion. MVR. No coronary calcification. Lymph Nodes: No enlarged supraclavicular, axillary, mediastinal, or hilar lymph nodes. Upper Abdomen: No acute abnormality. Small hiatal hernia. Likely left lobe hepatic cyst, unchanged. 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 Chest Wall: No chest wall mass. Bones: No suspicious lytic or blastic lesions. Procedure Note Kaz Batista MD - 04/06/2025 CT CHEST WITH CONTRAST Referring clinician's provided indication for this examination in [facility]:*Abnormal imaging; Assess right middle lobe which appears to have partialatelectasis, look for endobronchial lesions plugging TECHNIQUE: Multidetector CT of the chest was performed with intravenouscontrast using tailored dose modulation techniques. COMPARISON: CT CHEST WITH CONTRAST ; CT ANGIO CHEST WITH ANDWITHOUT CONTRAST ; XR CHEST PA AND LATERAL 2 [id number] FINDINGS: Devices/Tubes/Lines: None. Lungs: Elevated right hemidiaphragm, with right middle lobeperidiaphragmatic consolidation/volume loss, which is decreased since07/23/2022 CT, currently 31 x 13 x 14 mm, previously 38 x 25 x 21 mm. Nounderlying mass or mucous plugging is visualized. No new or enlarging nodules. Pleura: No pleural effusion or pneumothorax. Mediastinum: No suspicious thyroid nodules. Aberrant right subclavianartery origin, an anatomic variant. No pleural effusion. MVR. No coronarycalcification. Lymph Nodes: No enlarged supraclavicular, axillary, mediastinal, or hilarlymph nodes. Upper Abdomen: No acute abnormality. Small hiatal hernia. Likely left lobehepatic cyst, unchanged. 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 Chest Wall: No chest wall mass. Bones: No suspicious lytic or blastic lesions. IMPRESSION: Right middle lobe consolidation/volume loss, decreased since 07/23/2022,most likely represent atelectasis/scar. No underlying mass or mucousplugging. Delia Reyes MD [facility] CHEST Final Result * XR CHEST PA AND LATERAL 2 VIEWS (03/06/2025 2:14 PM EDT) Anatomical Region Laterality Modality Chest Computed Radiogr aphy 03/06/2025 2:18 PM EDT Impressions 03/06/2025 2:26 PM EDT Persistent right middle lobe atelectasis similar to prior study. Continued surveillance recommended. Narrative 03/06/2025 2:26 PM EDT XR CHEST PA AND LATERAL 2 VIEWS Referring clinician's provided indication for this examination in Epic: Pneumonia; Assess RML collapse for improvement COMPARISON: 01/05/2025 FINDINGS: Devices/Tubes/Lines: None. Lungs: No pulmonary edema. There is some persistent right middle lobe atelectasis similar to prior study. No new focal infiltrates Pleura: Normal. No pleural effusion or pneumothorax. Heart/Mediastinum: Heart is not enlarged. Status post mitral valve replacement Bones/Soft Tissues: No acute osseous abnormalities Procedure Note Froy Quiroz MD - 03/06/2025 XR CHEST PA AND LATERAL 2 VIEWS Referring clinician's provided indication for this examination in Epic:Pneumonia; Assess RML collapse for improvement COMPARISON: 01/05/2025 FINDINGS: Devices/Tubes/Lines: None. Lungs: No pulmonary edema. There is some persistent right middle lobeatelectasis similar to prior study. No new focal infiltrates Pleura: Normal. No pleural effusion or pneumothorax. Heart/Mediastinum: Heart is not enlarged. Status post mitral valvereplacement Bones/Soft Tissues: No acute osseous abnormalities IMPRESSION: Persistent right middle lobe atelectasis similar to prior study. Continuedsurveillance recommended. Delia Reyes MD IMG XR CHEST Final Result from Last 3 Months Insurance [facility] [place] [place] [address] [address] [place] [address] [place] [address] [place] [address] [facility] [place] [place] [address] [place] [address] Advance Directives For more information, please contact: [phone] (9AM - 5PM [place], Thursday-Thursday) Documents on File Type Date Recorded Patient Special Education Paraprofessional Expl anation Healthcare Proxy 02/20/2022 1:23 PM * Full Code (Latest Code Status on File) Date Activated Date Inactivated Comments 04/09/2022 9:02 PM Question Answer Comments Code Status Confirmed With: Patient Code Status Communicated To: Inpatient Attending Care Teams Respiratory Manager Relationship Specialty Start Date End Date Pita Greene MD [address] [place] [phone] PCP - General Internal Medicine 01/31/22 Ty Lilly MD [address] [place] [phone] Internal Medicine 03/20/22 Papito Izaguirre MD [address] [place] [address] [email or web address] Cardiology 12/04/22 Additional Source Comments The information contained in this document represents components of the legal health record. It is not the complete legal health record.[facility]
--- OUTSIDE RECORDS SUMMARY | 2025-05-03 11:15 | XMS_ITS | Encounter Summary ---
Author Organization [facility] Address [address] [place] [address] Phone Care Team Providers Care Video Rental Clerk Name Role Phone Ty Lilly MD Primary Care Provider [phone] Pita Greene MD Primary Care Provider [phone] Ty Lilly MD Unavailable [phone] Papito Izaguirre MD Unavailable [phone] Encounter Details Date Type Department Care Team (Late st Contact Info) Description 03/08/2018 Ancillary Orders [facility], X-Ray - [address] [place] [address] [address], [place] [address] [place] [address] Midline thoracic back pain, unspecified chronicity Social [...] Contact Info) Description 12/26/2024 Procedure Pass [facility] [address] [place] [address] 01/08/2026 1:30 PM EDT Appointment [facility] [address] [place] [address] Papito Izaguirre MD [address] [place] [phone] [email or web address] 01/08/2026 3:00 PM EDT Office Visit [facility] [address] [facility], 5th Floor, [address] [place] [address] Papito Izaguirre MD [address] [place] [phone] [email or web address] documented as of this encounter Results * XR THORACIC SPINE 3 VIEW (03/08/2018 3:57 PM EDT) Anatomical Region Laterality Modality T-spine Radiographic Juliet ging 03/08/2018 4:16 PM EDT Impressions 03/08/2018 4:18 PM EDT Osteopenia and mild scoliosis. POS - [id number] Narrative 03/08/2018 4:18 PM EDT HISTORY: As [...] IMPRESSION: Osteopenia and mild scoliosis. POS - [id number] Leif Flannery Darwin DC IMG XR SPINE Final Result documented in this encounter Visit Diagnoses Diagnosis Midline thoracic back pain, unspecified chronicity Midline thoracic back pain, unspecified chronicity documented in this encounter Additional Health Concerns Infection Onset Date Last Indicated Resolved Time CoV-Risk 09/10/2023 09/10/2023 09/10/2023 3:10 PM EST COVID-19 09/10/2023 09/10/2023 10/01/2023 1:23 AM EDT documented as of this encounter Care Teams Video Rental Clerk Relationship Specialty Start Date End Date Ty Lilly MD PCP - General Internal Medicine 03/08/18 01/30/22 Pita Greene MD [address] [place] [address] PCP - General Internal Medicine 01/31/22 Ty Lilly MD Internal Medicine 03/20/22 Papito Izaguirre MD [address] [place] [address] [email or web address] Cardiology 12/04/22 documented as of this encounter Additional Source Comments The information contained in this document represents components of the legal health record. It is not the complete legal health record.[facility]
--- OUTSIDE RECORDS SUMMARY | 2025-05-03 11:15 | XMS_ITS | Encounter Summary ---
Author Organization [facility] Address [address] [place] [address] [place] [address] Phone Care Team Providers Care Assembler Wet Wash Name Role Phone Pita Greene MD Primary Care Provider [phone] Ty Lilly MD Unavailable [phone] Papito Izaguirre MD Unavailable [phone] Encounter Details Date Type Department Care Team (Late st Contact Info) Description 12/05/2022 Procedure Pass [facility] Cardiac US [address] [place] [address] Social History Tobacco Use Types Packs/Day Years [...] st Contact Info) Description 12/26/2024 Procedure Pass [facility] Cardiac US [address] [place] [address] 01/08/2026 1:30 PM EDT Appointment [facility] Cardiac US [address] [place] [address] Papito Izaguirre MD [address] [place] [address] [email or web address] 01/08/2026 3:00 PM EDT Office Visit [facility] Cardiovascular Medicine [address] [facility], 5th Floor, [address] [place] [address] Papito Izaguirre MD [address] [place] [address] [email or web address] documented as of this encounter Visit Diagnoses Not on filedocumented in this encounter Additional Health Concerns Infection Onset Date Last Indicated Resolved Time CoV-Risk 09/10/2023 09/10/2023 09/10/2023 3:1 0 PM EST COVID-19 09/10/2023 09/10/2023 10/01/2023 1:23 AM EDT Assessment Noted Time PHQ-9 Depression Total Score: 14 022 3:36 PM EST documented as of this encounter Care Teams Assembler Wet Wash Relationship Specialty Start Date End Date Pita Greene MD [address] [place] [phone] PCP - General Internal Medicine 01/31/22 Ty Lilly MD [address] [place] [phone] Internal Medicine 03/20/22 Papito Izaguirre MD [address] [place] [address] [email or web address] Cardiology 12/04/22 documented as of this encounter Additional Source Comments The information contained in this document represents components of the legal health record. It is not the complete legal health record.[facility]
--- OUTSIDE RECORDS SUMMARY | 2025-05-03 11:15 | XMS_ITS | Encounter Summary ---
Author Organization [facility] Address [address] [place] [address] Phone Care Team Providers Care Pipe Threading Machine Operator Name Role Phone Pita Greene MD Primary Care Provider [phone] Ty Lilly MD Unavailable [phone] Papito Izaguirre MD Unavailable [phone] Reason for Visit * Reason Comments CR Assessment Encounter Details Date Type Department Care Team (Late st Contact Info) Description 05/21/2022 Documentation [facility] [address] [place] [address] Darya Miner RN CR Assessment Social History Tobacco Use Types [...] st Contact Info) Description 12/26/2024 Procedure Pass [facility] [address] [place] [address] 01/08/2026 1:30 PM EDT Appointment [facility] Card[facility] US [address] [place] [address] Papito Izaguirre MD [address] [place] [address] [email or web address] 01/08/2026 3:00 PM EDT Office Visit [facility] Cardiovascular Medicine [address] [facility], 5th Floor, [address] [place] [address] Papito Izaguirre MD [address] [place] [phone] [email or web address] Scheduled Orders Name Type Priority Associated Diagnoses [...] documented as of this encounter Care Teams Pipe Threading Machine Operator Relationship Specialty Start Date End Date Pita Greene MD [address] [place] [phone] PCP - General Internal Medicine 01/31/22 Ty Lilly MD [address] [place] [address] Internal Medicine 03/20/22 Papito Izaguirre MD [address] [place] [address] [email or web address] Cardiology 12/04/22 documented as of this encounter Additional Source Comments The information contained in this document represents components of the legal health record. It is not the complete legal health record.[facility]
--- OUTSIDE RECORDS SUMMARY | 2025-05-03 11:15 | XMS_ITS | Encounter Summary ---
Author Organization [facility] Address [address] [place] [address] Phone Care Team Providers Care Nurses Medical Assistants Phlebotomists Name Role Phone Pita Greene MD Primary Care Provider [phone] Ty Lilly MD Unavailable [phone] Papito Izaguirre MD Unavailable [phone] Encounter Details Date Type Department Care Team (Late st Contact Info) Description 11/11/2022 Procedure Pass [facility] Cardiac US [address] [place] [address] Social History Tobacco Use Types Packs/Day Years [...] st Contact Info) Description 12/26/2024 Procedure Pass [facility] Cardiac US [address] [place] [address] 01/08/2026 1:30 PM EDT Appointment [facility] Cardiac US [address] [place] [address] Papito Izaguirre MD [address] [place] [address] ALEXANDER@[email or web address] 01/08/2026 3:00 PM EDT Office Visit [facility] Cardiovascular Medicine [address] [facility], 5th Floor, [address] [place] [address] Papito Izaguirre MD [address] [place] [address] ALEXANDER@[email or web address] documented as of this encounter Visit Diagnoses Not on filedocumented in this encounter Additional Health Concerns Infection Onset Date Last Indicated Resolved Time CoV-Risk 09/10/2023 09/10/2023 09/10/2023 3:10 PM EST COVID-19 09/10/2023 09/10/2023 10/01/2023 1:23 AM EDT Assessment Noted Time PHQ-9 Depression Total Score: 14 022 3:36 PM EST documented as of this encounter Care Teams Nurses Medical Assistants Phlebotomists Relationship Specialty Start Date End Date Pita Greeen MD [address] [place] [address] PCP - General Internal Medicine 01/31/22 Ty Lilly MD [address] [place] [address] Internal Medicine 03/20/22 Papito Izaguirre MD [address] [place] [address] ALEXANDER@[email or web address] 12/04/22 documented as of this encounter Additional Source Comments The information contained in this document represents components of the legal health record. It is not the complete legal health record.[facility]
--- OUTSIDE RECORDS SUMMARY | 2025-05-03 11:16 | XMS_ITS | Encounter Summary ---
Author Organization [facility] Address [address] [place] [address] [place] [address] Phone Care Team Providers Care Medical Staff Assistant Name Role Phone Pita Greene MD Primary Care Provider [phone] Ty Lilly MD Unavailable [phone] Papito Izaguirre MD Unavailable [phone] Encounter Details Date Type Department Care Team (Late st Contact Info) Description 03/14/2025 Procedure Pass [facility], Ct Scan - [address] [address] Social History Tobacco Use Types Packs/Day Years [...] st Contact Info) Description 12/26/2024 Procedure Pass [facility] Cardiac [address] [address] 01/08/2026 1:30 PM EDT Appointment [facility] Cardiac US [address] [place] [address] Papito Izaguirre MD [address] [place] [address] ALEXANDER@[facility] 01/08/2026 3:00 PM EDT Office Visit [facility] Cardiovascular Medicine [address] [place] [address], 5th Floor, [address] [place] [address] Papito Izaguirre MD [address] [place] [address] ALEXANDER@[facility] documented as of this encounter Visit Diagnoses Not on filedocumented in this encounter Additional Health Concerns Assessment Noted Time PHQ-9 Depression Total Score: 14 022 3:36 PM EST documented as of this encounter Care Teams Medical Staff Assistant Relationship Specialty Start Date End Date Pita Greene MD [address] [place] [address] PCP - General Internal Medicine 01/31/22 Ty Lilly MD [address] [place] [address] Internal Medicine 03/20/22 Papito Izaguirre MD [address] [place] [address] ALEXANDER@[email or web address] Cardiology 12/04/22 documented as of this encounter Additional Source Comments The information contained in this document represents components of the legal health record. It is not the complete legal health record.[facility]
--- OUTSIDE RECORDS SUMMARY | 2025-05-03 11:16 | XMS_ITS | Clinical Summary ---
Author Organization [facility] [address] [facility] Address [address] [place] [address] Phone Care Team Providers Care Taffy Candy Maker Name Role Phone Pita Greene MD Primary Care Provider [phone] Social History Tobacco Use Types Packs/Day Years Used Date Smoking Tobacco: Never Assessed Comments Unknown Sex and Gender Information Value Date Recorded Sex Assigned at Not on file Legal Sex Female 8:27 PM EST Gender Identity Not on file Sexual Orientation Not on file Plan of Treatment Health Maintenance Due Date Last Done Comments Breast Cancer Screening 1962 Colorectal Cancer Screening: Colonoscopy 1962 DTaP,Tdap,and Td Vaccines (1 - Tdap) 1981 Cervical Cancer Screening: P ap Smear 1983 Pneumococcal Vaccine: 50+ Ye ars (1 of 1 - PCV) 01/16/2012 Zoster Vaccines (1 of 2) 01/16/2012 HIV Screening 08/07/2023 Hepatitis C Screening 08/07/2023 Social Influencers of Health Screening 08/07/2023 Depression Screening 07/13/2024 COVID-19 Vaccine ( - 2023-2 5 season) 2025 Influenza Vaccine (#1) 2025 RSV Immunization Adult Patie nts (1 [...] patient's age to complete this topic Insurance [facility] [place] [address] [facility] Care Teams Taffy Candy Maker Relationship Specialty Start Date End Date Pita Greene MD [address] [place] [address] PCP - General Internal Medicine 09/21/24
--- OUTSIDE RECORDS SUMMARY | 2025-05-03 11:16 | XMS_ITS | Encounter Summary ---
Author Organization [facility] Address [address] [place] [address] Phone Care Team Providers Care Shrimp Peeler Name Role Phone Pita Greene MD Primary Care Provider [phone] Ty Lilly MD Unavailable [phone] Papito Izaguirre MD Unavailable [phone] Reason for Referral * MRI/CAT Scan - Closed Specialty Diagnoses / Procedures Referred By Contac t Referred To Contact Radiology Diagnoses Sensorineural hearing loss, unilateral, left ear, with unrestricted hearing on the contralateral side Dizziness and giddiness Meniere's disease, left ear Procedures MRI Brain CHG MRI BRAIN CHG MRI BRAIN CONTRAST CHG MRI BRAIN COMBO Gallito Lyle MD Phone: tel: fax: mailto:[email or web address] Phone: tel: Referral ID Status Reason Start Date Expiration Date Visits Re quested Visits Authorized [id number] Closed 06/12/2022 07/12/2022 1 1 Encounter Details Date Type Department Care Team (Latest Contact Info) Description 05/22/2022 Transcribe Orders [facility] Department [address] [place] [address] Gallito Lyle MD [address], [address] [place] [address] [email or web address] Sensorineural hearing loss, unilateral, left [...] 8:27 PM EST Tomi Ruiz RN * [place] Suicide Severity Rating Scale (Screener/Recent Self-Report) Question [...] st Contact Info) Description 12/26/2024 Procedure Pass [facility] Cardiac [address] [address] 01/08/2026 1:30 PM EDT Appointment [facility] Cardiac [address] [address] Papito Izaguirre MD [address] [place] [address] ALEXANDER@[facility] 01/08/2026 3:00 PM EDT Office Visit [facility] Cardiovascular Medicine [address] [facility], 5th Floor, [address] [place] [address] Papito Izaguirre MD [address] [address] ALEXANDER@[facility] documented as of this encounter Results * [...] interval mitral valve surgery, andlikely clinically insignificant. Gallito Lyle MD IMG MR HEAD/NECK Final [...] documented as of this encounter Care Teams Shrimp Peeler Relationship Specialty Start Date End Date Pita Greene MD [address] [place] [address] PCP - General Internal Medicine 01/31/22 Ty Lilly MD [address] [place] [address] Internal Medicine 03/20/22 Papito Izaguirre MD [address] [place] [address] ALEXANDER@[email or web address] Cardiology 12/04/22 documented as of this encounter Additional Source Comments The information contained in this document represents components of the legal health record. It is not the complete legal health record.[facility]
--- OUTSIDE RECORDS SUMMARY | 2025-05-03 11:16 | XMS_ITS | Encounter Summary ---
Author Organization [facility] Address [address] [place] [address] Phone Care Team Providers Care Biomass Power Plant Manager Name Role Phone Pita Greene MD Primary Care Provider [phone] Ty Lilly MD Unavailable [phone] Papito Izaguirre MD Unavailable [phone] Encounter Details Date Type Department Care Team (Late st Contact Info) Description 05/15/2022 Procedure Pass [facility] Cardiac US [address] [place] [address] Social History Tobacco Use Types Packs/Day Years [...] 12/26/2024 Procedure Pass [facility] Cardiac US [address] [place] [address] 01/08/2026 1:30 PM EDT Appointment [facility] US [address] [place] [address] Papito Izaguirre MD [address] [address] ALEXANDER@[email or web address] 01/08/2026 3:00 PM EDT Office Visit [facility] Cardiovascular Medicine [address] [facility], 5th Floor, [address] [place] [address] Papito Izaguirre MD [address] [place] [address] ALEXANDER@[email or web address] documented as of this encounter Visit Diagnoses Not on filedocumented in this encounter Additional Health Concerns Infection Onset Date Last Indicated Resolved Time CoV-Risk 09/10/2023 09/10/2023 09/10/2023 3:10 PM EST COVID-19 09/10/2023 09/10/2023 10/01/2023 1:23 AM EDT Assessment Noted Time PHQ-9 Depression Total Score: 14 022 3:36 PM EST documented as of this encounter Care Teams Biomass Power Plant Manager Relationship Specialty Start Date End Date Pita Greene MD [address] [place] [address] PCP - General Internal Medicine 01/31/22 Ty Lilly MD [address] [place] [address] Internal Medicine 03/20/22 Papito Izaguirre MD [address] [place] [address] ALEXANDER@[email or web address] Cardiology 12/04/22 documented as of this encounter Additional Source Comments The information contained in this document represents components of the legal health record. It is not the complete legal health record.[facility]
--- OUTSIDE RECORDS SUMMARY | 2025-05-03 11:16 | XMS_ITS | Encounter Summary ---
Author Organization [facility] Address [address] [place] [address] [place] [address] Phone Care Team Providers Care Rehabilitation Counselor Name Role Phone Pita Greene MD Primary Care Provider [phone] Ty Lilly MD Unavailable [phone] Papito Izaguirre MD Unavailable [phone] Encounter Details Date Type Department Care Team (Late st Contact Info) Description 12/15/2022 Procedure Pass [facility] Cardiac US [address] [place] [address] Social History Tobacco Use Types Packs/Day Years [...] Contact Info) Description 12/26/2024 Procedure Pass [facility] Cardiac US [address] [place] [address] 01/08/2026 1:30 PM EDT Appointment [facility] Cardiac US [address] [place] [address] Papito Izaguirre MD [address] [place] [address] ALEXANDER@[facility] 01/08/2026 3:00 PM EDT Office Visit [facility] Cardiovascular Medicine [address] [facility], 5th Floor, [address] [place] [address] Papito Izaguirre MD [address] [place] [address] ALEXANDER@[facility] documented as of this encounter Visit Diagnoses Not on filedocumented in this encounter Additional Health Concerns Infection Onset Date Last Indicated Resolved Time CoV-Risk 09/10/2023 09/10/2023 09/10/2023 3:10 PM EST COVID-19 09/10/2023 09/10/2023 10/01/2023 1:23 AM EDT Assessment Noted Time PHQ-9 Depression Total Score: 14 022 3:36 PM EST documented as of this encounter Care Teams Rehabilitation Counselor Relationship Specialty Start Date End Date Pita Greene MD [address] [place] [address] PCP - General Internal Medicine 01/31/22 Ty Lilly MD [address] [place] [address] Internal Medicine 03/20/22 Papito Izaguirre MD [address] [place] [address] ALEXANDER@[facility] Card[facility] 12/04/22 documented as of this encounter Additional Source Comments The information contained in this document represents components of the legal health record. It is not the complete legal health record.[facility]
--- OUTSIDE RECORDS SUMMARY | 2025-05-03 11:16 | XMS_ITS | Encounter Summary ---
Author Organization [facility] Address [address] [place] [address] [place] [address] Phone Care Team Providers Care Site Supervising Technical Operator Name Role Phone Pita Greene MD Primary Care Provider [phone] Ty Lilly MD Unavailable [phone] Papito Izaguirre MD Unavailable [phone] Encounter Details Date Type Department Care Team (Late st Contact Info) Description 04/09/2022 Procedure Pass [facility] Cardiac US [address] [place] [address] Social History Tobacco Use Types Packs/Day Years [...] Author No Risk Indicated 04/11/2022 9:00 PM Mimi Hernandez, THAD * [place] Suicide Severity Rating Scale (Screener/Recent Self-Report) Question [...] Contact Info) Description 12/26/2024 Procedure Pass [facility] US [address] [place] [address] 01/08/2026 1:30 PM EDT Appointment [facility] Card[facility] US [address] [place] [address] Papito Izaguirre MD [address] [place] [address] ALEXANDER@[email or web address] 01/08/2026 3:00 PM EDT Office Visit [facility] Cardiovascular Medicine [address] [facility], 5th Floor, [address] [place] [address] Papito Izaguirre MD [address] [place] [address] ALEXANDER@[facility] documented as of this encounter Visit Diagnoses Not on filedocumented in this encounter Additional Health Concerns Infection Onset Date Last Indicated Resolved Time CoV-Risk 09/10/2023 09/10/2023 09/10/2023 3:10 PM EST COVID-19 09/10/2023 09/10/2023 10/01/2023 1:23 AM EDT documented as of this encounter Care Teams Site Supervising Technical Operator Relationship Specialty Start Date End Date Pita Greene MD [address] [place] [address] PCP - General Internal Medicine 01/31/22 yT Lilly MD [address] [place] [address] Internal Medicine 03/20/22 Papito Izaguirre MD [address] [place] [address] ALEXANDER@[email or web address] Cardiology 12/04/22 documented as of this encounter Additional Source Comments The information contained in this document represents components of the legal health record. It is not the complete legal health record.[facility]
--- OUTSIDE RECORDS SUMMARY | 2025-05-03 11:17 | XMS_ITS | Encounter Summary ---
Author Organization [facility] Address [address] [place] [address] [place] [address] Phone Care Team Providers Care Sheet Metal Duct Installer Apprentice Name Role Phone Pita Greene MD Primary Care Provider [phone] Ty Lilly MD Unavailable [phone] Papito Izaguirre MD Unavailable [phone] Encounter Details Date Type Department Care Team (Late st Contact Info) Description 04/09/2022 Procedure Pass [facility] [address] [place] [address] Social History Tobacco Use Types Packs/Day Years [...] Risk Indicated 04/11/2022 9:00 PM EDT Mimi Aaron RN * [place] Suicide Severity Rating Scale (Screener/Recent Self-Report) Question [...] Description 12/26/2024 Procedure Pass [facility] Card[facility] US [address] [place] [address] 01/08/2026 1:30 PM EDT Appointment [facility] Card[facility] US [address] [place] [address] Papito Izaguirre MD [address] [place] [address] ALEXANDER@[facility] 01/08/2026 3:00 PM EDT Office Visit [facility] Cardiovascular Medicine [address] [facility], 5th Floor, [address] [place] [address] Papito Izaguirre MD [address] [place] [address] ALEXANDER@[facility] documented as of this encounter Visit Diagnoses Not on filedocumented in this encounter Additional Health Concerns Infection Onset Date Last Indicated Resolved Time CoV-Risk 09/10/2023 09/10/2023 09/10/2023 3:10 PM EST COVID-19 09/10/2023 09/10/2023 10/01/2023 1:23 AM EDT documented as of this encounter Care Teams Sheet Metal Duct Installer Apprentice Relationship Specialty Start Date End Date Pita Greene MD [address] [place] [address] PCP - General Internal Medicine 01/31/22 Ty Lilly MD [address] [place] [address] Internal Medicine 03/20/22 Papito Izaguirre MD [address] [place] [address] ALEXANDER@[email or web address] Cardiology 12/04/22 documented as of this encounter Additional Source Comments The information contained in this document represents components of the legal health record. It is not the complete legal health record.[facility]
--- OUTSIDE RECORDS SUMMARY | 2025-05-03 11:17 | XMS_ITS | Patient Health Record ---
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 Name Role Phone Pita Greene Primary Care Provider UnavailSHRUTHI Gunter Unavailable [phone] Andrea Mckeon Unavailable [phone] Allergies Allergen (clinical drug ingredient) Drug/Non Drug Allergy documented on EMR Reaction Allergy Type Onset Date Status erythromycin erythomicin (uncoded) Unknown Allergy Active seasonal (uncoded) Unknown Allergy A ctive Substance with sulfonamide structure and antibacterial mechanism of action (substance) sulfa (uncoded) Unknown Allergy Act jose Substance with sulfonamide structure and antibacterial mechanism of action (substance) sulfamides (uncoded) Unknown Allergy Active sulfamethoxazole / trimethoprim Bactrim Unknown Drug Allergy Active Results Component Value Reference Range Notes Errol Alejandre LP Default Reviewed date:04/28/2025 09:22:53 AM Interpretation: [facility]forming [facility], [address] [place] [address], [place], Phone - [phone], Director - Darryn Notes/Report: Errol Alejandre LP Default A hand-written panel/profile was received from your office. In accordance with the [facility] Ambiguous Test Code Policy dated January 2003, we have completed your order by using the closest currently or formerly recognized AMA panel. We have assigned Lipid Panel, Test Code #[id number] to this request. If this is not the testing you wished to receive on this specimen, please contact the [facility] Client Inquiry/Technical Services Department to clarify the test order. We appreciate your business. Comp. Metabolic Panel [id number] Reviewed date:04/28/2025 09:22:53 AM Interpretation: Performing Lab:[facility] [place] [facility], Phone - [phone], Director - Darryn Notes/Report: Glucose 110 70-99 mg/dL BUN 17 8-27 mg/dL Creatinine 0.98 0.57-1.00 mg/dL eGFR 65 >59 mL/min/1.73 BUN/Creatinine Ratio 17 12-28 Sodium 140 134-144 mmol/L Potassium 4.3 3.5-5.2 mmol/L Chloride 103 96-106 mmol/L Carbon Dioxide, Total 23 20-29 mmol/L Calcium 10.2 8.7-10.3 mg/dL Protein, Total 6.6 6.0-8.5 g/dL Albumin 4.2 3.9-4.9 g/dL Globulin, Total 2.4 1.5-4.5 g/dL Bilirubin, Total 0.4 0.0-1.2 mg/dL Alkaline Phosphatase 110 49-135 IU/L AST (SGOT) 19 0-40 IU/L ALT (SGPT) 19 0-32 IU/L Lipid [id number] Reviewed date:04/28/2025 09:22:53 AM Interpretation: Performing Lab:[facility] [place], [place] [facility], Phone - [phone], Director - Darryn Notes/Report: Cholesterol, Total 214 100-199 mg/dL Triglycerides 67 0-149 mg/dL HDL Cholesterol 72 >39 mg/dL VLDL Cholesterol Vance 12 5-40 mg/dL LDL Chol Calc ([facility]) 130 0-99 mg/dL [id number] Reviewed date:04/28/2025 09:22:53 AM Interpretation: Performing Lab:[facility] [place], [place] [facility], Phone - [phone], Director - Darryn Notes/Report: Insulin 7.1 2.6-24.9 uIU/mL Errol Alejandre CMP14 Default A hand-written panel/profile was received from your office. In accordance with the [facility] Ambiguous Test Code Policy dated January 2003, we have completed your order by using the closest currently or formerly recognized AMA panel. We have assigned Comprehensive Metabolic Panel (14), Test Code #[id number] to this request. If this is not the testing you wished to receive on this specimen, please contact the [facility] Client Inquiry/Technical Services Department to clarify the test order. We appreciate your business. [id number] Reviewed date:04/28/2025 09:22:53 AM Interpretation: Performing Lab:[facility], [address] [place] [address], Phone - [phone], Director - Darryn Notes/Report: TSH 1.670 0.450-4.500 uIU/mL Vitamin [id number] Reviewed date:04/28/2025 09:22:53 AM Interpretation: Performing Lab:[facility] [place], [address] [place] [address], [place], Phone - [phone], Director - Darryn Notes/Report: Vitamin B12 094 418-1134 pg/mL Hemoglobin [id number] Reviewed date:04/28/2025 09:22:53 AM Interpretation: Performing Lab:[facility], [address] [place] [address], [place], Phone - [phone], Director - Darryn Notes/Report: Hemoglobin A1c 5.6 4.8-5.6 % . Prediabetes: 5.7 - 6.4 Diabetes: >6.4 Glycemic control for adults with diabetes: <7.0 Reason For Referral Diagnosis 1 Dietary counseling ( Z71.3) Referring Provider First Name Pita Referring Provider Last Name [facility] Referred Organization [facility] [place] Referred Provider SHRUTHI VALERIO Referred Address [place], [place],[address], Referred Provider Specialty Weight Manag ement Referral Priority Routine Medications Medication SIG (Take, Route, Frequency, Duration) Notes Start Date End Date Status Amoxicillin as needed for dentist appt Active IBU Active KlonoPIN 1 MG 1 tablet Orally 3 times a day Active LaMICtal 150 MG 1 tablet Orally Twice a day Active buPROPion HCl ER (SR) 150 MG 1 tablet in the morning Orally Once a day Active Evista 60 MG 1 tablet Orally Once a day Active Aspirin 81 81 MG 1 tablet Orally as needed Active Calcium + D3 Active Azelastine-Fluticasone 137-50 MCG/ACT 1 spray in each nostril Nasally Twice a day Active Cyclobenzaprine HCl 5 MG 1 tablet at bed time as needed Orally Once a day Active Flonase Active Tylenol Active Estela Active Problems Problem Type SNOMED Code ICD Code Onset Dates Problem Status W/U Status Risk Notes Problem Vitamin B>12< deficiency anaemia (12943281) Vitamin B12 deficiency anemia, unspecified (D51.9) Active confirmed Problem Acquired hypothyroidism (183316058) Acquired hypothyroidism (E03.9) Active confirmed Problem Abnormal metabolic state due to diabetes mellitus (671594497) Abnormal metabolic state due to diabetes mellitus (E11.9) Active confirmed Vital Signs Heart Rate 85 /min 04/26/2025 Oximetry 98 % 04/26/2025 Blood pressure diastolic 80 mm Hg 04/26/2025 Height 66 in 04/26/2025 Blood pressure systolic 110 mm Hg 04/26/2025 Weight 168.8 lbs 04/26/2025 BMI 27.24 kg/m2 04/26/2025 Encounters Encounter Location Date Provider Diagnosis [facility] [address] [place] [address] 04/26/2025 Andrea Mike Overweight (BMI 25.0-29.9) E66.3 ; BMI 27.0-27.9,adult Z68.27 ; Dietary counseling Z71.3 ; Type 2 diabetes mellitus without complications E11.9 ; Depression F32.A and Blood pressure check Z01.[address] [facility] [address] [place] [address] 04/26/2025 Andrea Mike [facility] [address] [address] 04/26/2025 Andrea Ganado [facility] [address] [address] 04/27/2025 Andrea Ganado [facility] [address] [address] 04/28/2025 Andrea Mike [facility] [address] [address] 04/28/2025 NIDAH VALERIO [facility] [address] [address] 04/28/2025 NIDAH VALERIO [facility] [address] [address] 05/01/2025 Andrea Mike Assessments Encounter Date Diagnosis (ICD Code) Assessment Notes Treatment Notes Treatment Clinical Notes Section Notes 04/26/2025 BMI 27.0-27.9,adult (ICD-10 - Z68.27) 04/26/2025: Obesity, BMI 27.24, weight 168.8 LBS), with a weight trend increasing. Contributing factors include lack of functional mobility due to extensive lower extremity injuries. Patient has been trying to eat much healthier over the past few years but has noticed she has gained weight even despite. She has had an experience with Wegovy for which she discontinued for fear of medullary endocrine neoplasia and thyroid cancer. She has no history or family history and we spoke about her low risk for which she was unaware. Patient goal is 140 pounds. As we do not have the patient's full medical records get I am hesitant to start any medications but I do believe she could benefit from GLP-1 therapy. As she had side effects in the past we would have to keep a close look on her and use strategic supplementation and diet counseling to minimize risk. Will have the patient complete labs before next visit in 4 to 6 weeks. Given her history of diabetes we should consider metformin as first-line as her primary was uncomfortable with prescribing to her. Will obtain all records from patient before next visit to review for any medication contraindications given her extensive history. Patient was reassured and welcomed to the practice. We discussed that we stress a holistic medical approach with emphasis on lifestyle modification. Patient was informed that a healthy lifestyle with exercise and good eating habits can help reduce his risk of medical complications. Patient is explained that obesity increases his risk of diabetes, cardiovascular disease, or organ damage. We spent a lot of time discussing the relationship between food, exercise, sleep, mental health and obesity. Patient was counseled on the importance EATING local, organic food when possible. Self education is important in the journey for weight management. Patient was offered diagnostic testing/ SECA scale. We want to measure visceral adiposity, advanced body composition, adverse lipids, fatty acid balance, risk for heart disease and atherosclerosis, markers of inflammation and genetic susceptibility. Patient was counseled on weight management and was advised to lose weight using B. Lifestyle management which includes several strategies as below 1. Eat a low carbohydrate good fat good protein diet. Eliminate refined carbohydrates from the diet. Limit sugared beverages. Eat local organic when possible. Cook your own meals. Read food labels. Focus on healthy snacks. Portion control and food with low glycemic index 2. Exercise regularly. Try to get at least 6000 steps a day. Use a predominant to track activity level. Consider using apps like 7 minute excercise, myfitnesspal, lose it, stick as needed for self-monitoring and weight management. Consider group exercises. Consider hiring a celebrity chef entrepreneur media personality. Regular exercise is hernández to sustainable health and prevents as a buffer against weight regain 3. Sleep is most important for healing. Try to sleep at least 6-8 hours a night. A good quality sleep needs a sleep ritual with ideal room temperature of around 68. It might help to take a shower and have no electronics in the room and sleep in a very dark room without artificial light. Start sleep routine and get up early in the morning and go to bed on time. 4. Make a social connection. Surround yourself with positive people with positive energy. Connect with friends and family. 5. Get into the habit of meditating and mindfulness while doing everything. 6. Go outside and connect with nature. C. Prescription medications Patient was educated on the use of prescription medications for medical weight loss. This is a growing list and includes phentermine, Topamax, Qsymia, contrave, belviq and saxenda, wegovy etc. All prescription medications could have side effects including but not limited to kidney stones, seizure disorder cardiac arrhythmias heart attack pancreatitis, GI effects, Etc. Patient was encouraged to read the prescription insert and have coaching with their pharmacist and make an informed decision about taking medication and know that these medications are being prescribed with good intentions and we do not know how a patient would react to her medication. Some medications are FDA approved for weight loss and there is also off label use depending on patient's inability to afford medications in an attempt to lose weight D. Behavioral counseling was done to establish a relationship between food and an mood. Patient was provided information about local counseling and psychiatry and Dr Kumar at [facility]. We would like to cover regular topics and build on low glycemic eating exercise mindful eating, using yoga and meditation along with deep breathing and connecting with friends and family. E. MASS PAT reviewed, Patient's current medications were reviewed and opinion was given on medication that can cause weight gain and can be substituted F. Patient was assessed for risk with obesity including and not limiting to atherosclerosis heart disease stroke kidney disease, restrictive lung disease, irritable bowel syndrome and overall mortality. Risk of developing prediabetes diabetes and metabolic syndrome was discussed G. Therapeutic plan: We have decided to make therapeutic plan which would include choosing wisely on calories restricting portion getting active, tracking weight, getting good quality sleep and working on time management H. Patient will follow up in 4 weeks for weight management Total time spent today was 60 minutes of which greater than 50% was spent on coordinating and counseling Case discussed with collaborating physician Polina Valerio who reviewed the assessment and plan. Chart, medications, labs, vital signs reviewed. Dictation was accomplished with the use of [employer] voice recognition software, prone to medical misidentifications and grammatical errors. This is unintentional and the practitioner does try to identify and correct these, but some could still be present. Please do not hesitate to contact practitioner for clarification. All questions answered to patients satisfaction. Patient verbalized understanding of diagnosis and treatments explained. To call sooner prior to next visit it any questions/concerns arise. 04/26/2025 Overweight (BMI 25.0-29.9) (ICD-10 - E66.3) 04/26/2025: Obesity, BMI 27.24, weight 168.8 LBS), with a weight trend increasing. Contributing factors include lack of functional mobility due to extensive lower extremity injuries. Patient has been trying to eat much healthier over the past few years but has noticed she has gained weight even despite. She has had an experience with Wegovy for which she discontinued for fear of medullary endocrine neoplasia and thyroid cancer. She has no history or family history and we spoke about her low risk for which she was unaware. Patient goal is 140 pounds. As we do not have the patient's full medical records get I am hesitant to start any medications but I do believe she could benefit from GLP-1 therapy. As she had side effects in the past we would have to keep a close look on her and use strategic supplementation and diet counseling to minimize risk. Will have the patient complete labs before next visit in 4 to 6 weeks. Given her history of diabetes we should consider metformin as first-line as her primary was uncomfortable with prescribing to her. Will obtain all records from patient before next visit to review for any medication contraindications given her extensive history. Patient was reassured and welcomed to the practice. We discussed that we stress a holistic medical approach with emphasis on lifestyle modification. Patient was informed that a healthy lifestyle with exercise and good eating habits can help reduce his risk of medical complications. Patient is explained that obesity increases his risk of diabetes, cardiovascular disease, or organ damage. We spent a lot of time discussing the relationship between food, exercise, sleep, mental health and obesity. Patient was counseled on the importance EATING local, organic food when possible. Self education is important in the journey for weight management. Patient was offered diagnostic testing/ SECA scale. We want to measure visceral adiposity, advanced body composition, adverse lipids, fatty acid balance, risk for heart disease and atherosclerosis, markers of inflammation and genetic susceptibility. Patient was counseled on weight management and was advised to lose weight using B. Lifestyle management which includes several strategies as below 1. Eat a low carbohydrate good fat good protein diet. Eliminate refined carbohydrates from the diet. Limit sugared beverages. Eat local organic when possible. Cook your own meals. Read food labels. Focus on healthy snacks. Portion control and food with low glycemic index 2. Exercise regularly. Try to get at least 6000 steps a day. Use a predominant to track activity level. Consider using apps like 7 minute excercise, biNupal, lose it, stick as needed for self-monitoring and weight management. Consider group exercises. Consider hiring a celebrity chef entrepreneur media personality. Regular exercise is hernández to sustainable health and prevents as a buffer against weight regain 3. Sleep is most important for healing. Try to sleep at least 6-8 hours a night. A good quality sleep needs a sleep ritual with ideal room temperature of around 68. It might help to take a shower and have no electronics in the room and sleep in a very dark room without artificial light. Start sleep routine and get up early in the morning and go to bed on time. 4. Make a social connection. Surround yourself with positive people with positive energy. Connect with friends and family. 5. Get into the habit of meditating and mindfulness while doing everything. 6. Go outside and connect with nature. C. Prescription medications Patient was educated on the use of prescription medications for medical weight loss. This is a growing list and includes phentermine, Topamax, Qsymia, contrave, belviq and saxenda, wegovy etc. All prescription medications could have side effects including but not limited to kidney stones, seizure disorder cardiac arrhythmias heart attack pancreatitis, GI effects, Etc. Patient was encouraged to read the prescription insert and have coaching with their pharmacist and make an informed decision about taking medication and know that these medications are being prescribed with good intentions and we do not know how a patient would react to her medication. Some medications are FDA approved for weight loss and there is also off label use depending on patient's inability to afford medications in an attempt to lose weight D. Behavioral counseling was done to establish a relationship between food and an mood. Patient was provided information about local counseling and psychiatry and Dr Kumar at [facility]. We would like to cover regular topics and build on low glycemic eating exercise mindful eating, using yoga and meditation along with deep breathing and connecting with friends and family. E. MASS PAT reviewed, Patient's current medications were reviewed and opinion was given on medication that can cause weight gain and can be substituted F. Patient was assessed for risk with obesity including and not limiting to atherosclerosis heart disease stroke kidney disease, restrictive lung disease, irritable bowel syndrome and overall mortality. Risk of developing prediabetes diabetes and metabolic syndrome was discussed G. Therapeutic plan: We have decided to make therapeutic plan which would include choosing wisely on calories restricting portion getting active, tracking weight, getting good quality sleep and working on time management H. Patient will follow up in 4 weeks for weight management Total time spent today was 60 minutes of which greater than 50% was spent on coordinating and counseling Case discussed with collaborating physician Polina Valerio who reviewed the assessment and plan. Chart, medications, labs, vital signs reviewed. Dictation was accomplished with the use of [employer] voice recognition software, prone to medical misidentifications and grammatical errors. This is unintentional and the practitioner does try to identify and correct these, but some could still be present. Please do not hesitate to contact practitioner for clarification. All questions answered to patients satisfaction. Patient verbalized understanding of diagnosis and treatments explained. To call sooner prior to next visit it any questions/concerns arise. 04/26/2025 Dietary counseling (ICD-10 - Z71.3) 04/26/2025: Obesity, BMI 27.24, weight 168.8 LBS), with a weight trend increasing. Contributing factors include lack of functional mobility due to extensive lower extremity injuries. Patient has been trying to eat much healthier over the past few years but has noticed she has gained weight even despite. She has had an experience with Wegovy for which she discontinued for fear of medullary endocrine neoplasia and thyroid cancer. She has no history or family history and we spoke about her low risk for which she was unaware. Patient goal is 140 pounds. As we do not have the patient's full medical records get I am hesitant to start any medications but I do believe she could benefit from GLP-1 therapy. As she had side effects in the past we would have to keep a close look on her and use strategic supplementation and diet counseling to minimize risk. Will have the patient complete labs before next visit in 4 to 6 weeks. Given her history of diabetes we should consider metformin as first-line as her primary was uncomfortable with prescribing to her. Will obtain all records from patient before next visit to review for any medication contraindications given her extensive history. Patient was reassured and welcomed to the practice. We discussed that we stress a holistic medical approach with emphasis on lifestyle modification. Patient was informed that a healthy lifestyle with exercise and good eating habits can help reduce his risk of medical complications. Patient is explained that obesity increases his risk of diabetes, cardiovascular disease, or organ damage. We spent a lot of time discussing the relationship between food, exercise, sleep, mental health and obesity. Patient was counseled on the importance EATING local, organic food when possible. Self education is important in the journey for weight management. Patient was offered diagnostic testing/ SECA scale. We want to measure visceral adiposity, advanced body composition, adverse lipids, fatty acid balance, risk for heart disease and atherosclerosis, markers of inflammation and genetic susceptibility. Patient was counseled on weight management and was advised to lose weight using B. Lifestyle management which includes several strategies as below 1. Eat a low carbohydrate good fat good protein diet. Eliminate refined carbohydrates from the diet. Limit sugared beverages. Eat local organic when possible. Cook your own meals. Read food labels. Focus on healthy snacks. Portion control and food with low glycemic index 2. Exercise regularly. Try to get at least 6000 steps a day. Use a predominant to track activity level. Consider using apps like 7 minute excercise, [employer]pal, lose it, stick as needed for self-monitoring and weight management. Consider group exercises. Consider hiring a celebrity chef entrepreneur media personality. Regular exercise is hernández to sustainable health and prevents as a buffer against weight regain 3. Sleep is most important for healing. Try to sleep at least 6-8 hours a night. A good quality sleep needs a sleep ritual with ideal room temperature of around 68. It might help to take a shower and have no electronics in the room and sleep in a very dark room without artificial light. Start sleep routine and get up early in the morning and go to bed on time. 4. Make a social connection. Surround yourself with positive people with positive energy. Connect with friends and family. 5. Get into the habit of meditating and mindfulness while doing everything. 6. Go outside and connect with nature. C. Prescription medications Patient was educated on the use of prescription medications for medical weight loss. This is a growing list and includes phentermine, Topamax, Qsymia, contrave, belviq and saxenda, wegovy etc. All prescription medications could have side effects including but not limited to kidney stones, seizure disorder cardiac arrhythmias heart attack pancreatitis, GI effects, Etc. Patient was encouraged to read the prescription insert and have coaching with their pharmacist and make an informed decision about taking medication and know that these medications are being prescribed with good intentions and we do not know how a patient would react to her medication. Some medications are FDA approved for weight loss and there is also off label use depending on patient's inability to afford medications in an attempt to lose weight D. Behavioral counseling was done to establish a relationship between food and an mood. Patient was provided information about local counseling and psychiatry and Dr Kumar at [facility]. We would like to cover regular topics and build on low glycemic eating exercise mindful eating, using yoga and meditation along with deep breathing and connecting with friends and family. E. MASS PAT reviewed, Patient's current medications were reviewed and opinion was given on medication that can cause weight gain and can be substituted F. Patient was assessed for risk with obesity including and not limiting to atherosclerosis heart disease stroke kidney disease, restrictive lung disease, irritable bowel syndrome and overall mortality. Risk of developing prediabetes diabetes and metabolic syndrome was discussed G. Therapeutic plan: We have decided to make therapeutic plan which would include choosing wisely on calories restricting portion getting active, tracking weight, getting good quality sleep and working on time management H. Patient will follow up in 4 weeks for weight management Total time spent today was 60 minutes of which greater than 50% was spent on coordinating and counseling Case discussed with collaborating physician Polina Valerio who reviewed the assessment and plan. Chart, medications, labs, vital signs reviewed. Dictation was accomplished with the use of CARDFREE voice recognition software, prone to medical misidentifications and grammatical errors. This is unintentional and the practitioner does try to identify and correct these, but some could still be present. Please do not hesitate to contact practitioner for clarification. All questions answered to patients satisfaction. Patient verbalized understanding of diagnosis and treatments explained. To call sooner prior to next visit it any questions/concerns arise. 04/26/2025 Type 2 diabetes mellitus without complications (ICD-10 - E11.9) 04/26/2025: Obesity, BMI 27.24, weight 168.8 LBS), with a weight trend increasing. Contributing factors include lack of functional mobility due to extensive lower extremity injuries. Patient has been trying to eat much healthier over the past few years but has noticed she has gained weight even despite. She has had an experience with Wegovy for which she discontinued for fear of medullary endocrine neoplasia and thyroid cancer. She has no history or family history and we spoke about her low risk for which she was unaware. Patient goal is 140 pounds. As we do not have the patient's full medical records get I am hesitant to start any medications but I do believe she could benefit from GLP-1 therapy. As she had side effects in the past we would have to keep a close look on her and use strategic supplementation and diet counseling to minimize risk. Will have the patient complete labs before next visit in 4 to 6 weeks. Given her history of diabetes we should consider metformin as first-line as her primary was uncomfortable with prescribing to her. Will obtain all records from patient before next visit to review for any medication contraindications given her extensive history. Patient was reassured and welcomed to the practice. We discussed that we stress a holistic medical approach with emphasis on lifestyle modification. Patient was informed that a healthy lifestyle with exercise and good eating habits can help reduce his risk of medical complications. Patient is explained that obesity increases his risk of diabetes, cardiovascular disease, or organ damage. We spent a lot of time discussing the relationship between food, exercise, sleep, mental health and obesity. Patient was counseled on the importance EATING local, organic food when possible. Self education is important in the journey for weight management. Patient was offered diagnostic testing/ SECA scale. We want to measure visceral adiposity, advanced body composition, adverse lipids, fatty acid balance, risk for heart disease and atherosclerosis, markers of inflammation and genetic susceptibility. Patient was counseled on weight management and was advised to lose weight using B. Lifestyle management which includes several strategies as below 1. Eat a low carbohydrate good fat good protein diet. Eliminate refined carbohydrates from the diet. Limit sugared beverages. Eat local organic when possible. Cook your own meals. Read food labels. Focus on healthy snacks. Portion control and food with low glycemic index 2. Exercise regularly. Try to get at least 6000 steps a day. Use a predominant to track activity level. Consider using apps like 7 minute excercise, my5 examplesnesspal, lose it, stick as needed for self-monitoring and weight management. Consider group exercises. Consider hiring a celebrity chef entrepreneur media personality. Regular exercise is hernández to sustainable health and prevents as a buffer against weight regain 3. Sleep is most important for healing. Try to sleep at least 6-8 hours a night. A good quality sleep needs a sleep ritual with ideal room temperature of around 68. It might help to take a shower and have no electronics in the room and sleep in a very dark room without artificial light. Start sleep routine and get up early in the morning and go to bed on time. 4. Make a social connection. Surround yourself with positive people with positive energy. Connect with friends and family. 5. Get into the habit of meditating and mindfulness while doing everything. 6. Go outside and connect with nature. C. Prescription medications Patient was educated on the use of prescription medications for medical weight loss. This is a growing list and includes phentermine, Topamax, Qsymia, contrave, belviq and saxenda, wegovy etc. All prescription medications could have side effects including but not limited to kidney stones, seizure disorder cardiac arrhythmias heart attack pancreatitis, GI effects, Etc. Patient was encouraged to read the prescription insert and have coaching with their pharmacist and make an informed decision about taking medication and know that these medications are being prescribed with good intentions and we do not know how a patient would react to her medication. Some medications are FDA approved for weight loss and there is also off label use depending on patient's inability to afford medications in an attempt to lose weight D. Behavioral counseling was done to establish a relationship between food and an mood. Patient was provided information about local counseling and psychiatry and Dr Kumar at [facility]. We would like to cover regular topics and build on low glycemic eating exercise mindful eating, using yoga and meditation along with deep breathing and connecting with friends and family. E. MASS PAT reviewed, Patient's current medications were reviewed and opinion was given on medication that can cause weight gain and can be substituted F. Patient was assessed for risk with obesity including and not limiting to atherosclerosis heart disease stroke kidney disease, restrictive lung disease, irritable bowel syndrome and overall mortality. Risk of developing prediabetes diabetes and metabolic syndrome was discussed G. Therapeutic plan: We have decided to make therapeutic plan which would include choosing wisely on calories restricting portion getting active, tracking weight, getting good quality sleep and working on time management H. Patient will follow up in 4 weeks for weight management Total time spent today was 60 minutes of which greater than 50% was spent on coordinating and counseling Case discussed with collaborating physician Polina Valerio who reviewed the assessment and plan. Chart, medications, labs, vital signs reviewed. Dictation was accomplished with the use of CARDFREE voice recognition software, prone to medical misidentifications and grammatical errors. This is unintentional and the practitioner does try to identify and correct these, but some could still be present. Please do not hesitate to contact practitioner for clarification. All questions answered to patients satisfaction. Patient verbalized understanding of diagnosis and treatments explained. To call sooner prior to next visit it any questions/concerns arise. 04/26/2025 Depression (ICD-10 - F32.A) 04/26/2025: Obesity, BMI 27.24, weight 168.8 LBS), with a weight trend increasing. Contributing factors include lack of functional mobility due to extensive lower extremity injuries. Patient has been trying to eat much healthier over the past few years but has noticed she has gained weight even despite. She has had an experience with Wegovy for which she discontinued for fear of medullary endocrine neoplasia and thyroid cancer. She has no history or family history and we spoke about her low risk for which she was unaware. Patient goal is 140 pounds. As we do not have the patient's full medical records get I am hesitant to start any medications but I do believe she could benefit from GLP-1 therapy. As she had side effects in the past we would have to keep a close look on her and use strategic supplementation and diet counseling to minimize risk. Will have the patient complete labs before next visit in 4 to 6 weeks. Given her history of diabetes we should consider metformin as first-line as her primary was uncomfortable with prescribing to her. Will obtain all records from patient before next visit to review for any medication contraindications given her extensive history. Patient was reassured and welcomed to the practice. We discussed that we stress a holistic medical approach with emphasis on lifestyle modification. Patient was informed that a healthy lifestyle with exercise and good eating habits can help reduce his risk of medical complications. Patient is explained that obesity increases his risk of diabetes, cardiovascular disease, or organ damage. We spent a lot of time discussing the relationship between food, exercise, sleep, mental health and obesity. Patient was counseled on the importance EATING local, organic food when possible. Self education is important in the journey for weight management. Patient was offered diagnostic testing/ SECA scale. We want to measure visceral adiposity, advanced body composition, adverse lipids, fatty acid balance, risk for heart disease and atherosclerosis, markers of inflammation and genetic susceptibility. Patient was counseled on weight management and was advised to lose weight using B. Lifestyle management which includes several strategies as below 1. Eat a low carbohydrate good fat good protein diet. Eliminate refined carbohydrates from the diet. Limit sugared beverages. Eat local organic when possible. Cook your own meals. Read food labels. Focus on healthy snacks. Portion control and food with low glycemic index 2. Exercise regularly. Try to get at least 6000 steps a day. Use a predominant to track activity level. Consider using apps like 7 minute excercise, [employer]pal, lose it, stick as needed for self-monitoring and weight management. Consider group exercises. Consider hiring a celebrity chef entrepreneur media personality. Regular exercise is hernández to sustainable health and prevents as a buffer against weight regain 3. Sleep is most important for healing. Try to sleep at least 6-8 hours a night. A good quality sleep needs a sleep ritual with ideal room temperature of around 68. It might help to take a shower and have no electronics in the room and sleep in a very dark room without artificial light. Start sleep routine and get up early in the morning and go to bed on time. 4. Make a social connection. Surround yourself with positive people with positive energy. Connect with friends and family. 5. Get into the habit of meditating and mindfulness while doing everything. 6. Go outside and connect with nature. C. Prescription medications Patient was educated on the use of prescription medications for medical weight loss. This is a growing list and includes phentermine, Topamax, Qsymia, contrave, belviq and saxenda, wegovy etc. All prescription medications could have side effects including but not limited to kidney stones, seizure disorder cardiac arrhythmias heart attack pancreatitis, GI effects, Etc. Patient was encouraged to read the prescription insert and have coaching with their pharmacist and make an informed decision about taking medication and know that these medications are being prescribed with good intentions and we do not know how a patient would react to her medication. Some medications are FDA approved for weight loss and there is also off label use depending on patient's inability to afford medications in an attempt to lose weight D. Behavioral counseling was done to establish a relationship between food and an mood. Patient was provided information about local counseling and psychiatry and Dr Kumar at [facility]. We would like to cover regular topics and build on low glycemic eating exercise mindful eating, using yoga and meditation along with deep breathing and connecting with friends and family. E. MASS PAT reviewed, Patient's current medications were reviewed and opinion was given on medication that can cause weight gain and can be substituted F. Patient was assessed for risk with obesity including and not limiting to atherosclerosis heart disease stroke kidney disease, restrictive lung disease, irritable bowel syndrome and overall mortality. Risk of developing prediabetes diabetes and metabolic syndrome was discussed G. Therapeutic plan: We have decided to make therapeutic plan which would include choosing wisely on calories restricting portion getting active, tracking weight, getting good quality sleep and working on time management H. Patient will follow up in 4 weeks for weight management Total time spent today was 60 minutes of which greater than 50% was spent on coordinating and counseling Case discussed with collaborating physician Polina Valerio who reviewed the assessment and plan. Chart, medications, labs, vital signs reviewed. Dictation was accomplished with the use of CARDFREE voice recognition software, prone to medical misidentifications and grammatical errors. This is unintentional and the practitioner does try to identify and correct these, but some could still be present. Please do not hesitate to contact practitioner for clarification. All questions answered to patients satisfaction. Patient verbalized understanding of diagnosis and treatments explained. To call sooner prior to next visit it any questions/concerns arise. 04/26/2025 Blood pressure check (ICD-10 - Z01.30) 04/26/2025: Obesity, BMI 27.24, weight 168.8 LBS), with a weight trend increasing. Contributing factors include lack of functional mobility due to extensive lower extremity injuries. Patient has been trying to eat much healthier over the past few years but has noticed she has gained weight even despite. She has had an experience with Wegovy for which she discontinued for fear of medullary endocrine neoplasia and thyroid cancer. She has no history or family history and we spoke about her low risk for which she was unaware. Patient goal is 140 pounds. As we do not have the patient's full medical records get I am hesitant to start any medications but I do believe she could benefit from GLP-1 therapy. As she had side effects in the past we would have to keep a close look on her and use strategic supplementation and diet counseling to minimize risk. Will have the patient complete labs before next visit in 4 to 6 weeks. Given her history of diabetes we should consider metformin as first-line as her primary was uncomfortable with prescribing to her. Will obtain all records from patient before next visit to review for any medication contraindications given her extensive history. Patient was reassured and welcomed to the practice. We discussed that we stress a holistic medical approach with emphasis on lifestyle modification. Patient was informed that a healthy lifestyle with exercise and good eating habits can help reduce his risk of medical complications. Patient is explained that obesity increases his risk of diabetes, cardiovascular disease, or organ damage. We spent a lot of time discussing the relationship between food, exercise, sleep, mental health and obesity. Patient was counseled on the importance EATING local, organic food when possible. Self education is important in the journey for weight management. Patient was offered diagnostic testing/ SECA scale. We want to measure visceral adiposity, advanced body composition, adverse lipids, fatty acid balance, risk for heart disease and atherosclerosis, markers of inflammation and genetic susceptibility. Patient was counseled on weight management and was advised to lose weight using B. Lifestyle management which includes several strategies as below 1. Eat a low carbohydrate good fat good protein diet. Eliminate refined carbohydrates from the diet. Limit sugared beverages. Eat local organic when possible. Cook your own meals. Read food labels. Focus on healthy snacks. Portion control and food with low glycemic index 2. Exercise regularly. Try to get at least 6000 steps a day. Use a predominant to track activity level. Consider using apps like 7 minute excercise, biNupal, lose it, stick as needed for self-monitoring and weight management. Consider group exercises. Consider hiring a celebrity chef entrepreneur media personality. Regular exercise is hernández to sustainable health and prevents as a buffer against weight regain 3. Sleep is most important for healing. Try to sleep at least 6-8 hours a night. A good quality sleep needs a sleep ritual with ideal room temperature of around 68. It might help to take a shower and have no electronics in the room and sleep in a very dark room without artificial light. Start sleep routine and get up early in the morning and go to bed on time. 4. Make a social connection. Surround yourself with positive people with positive energy. Connect with friends and family. 5. Get into the habit of meditating and mindfulness while doing everything. 6. Go outside and connect with nature. C. Prescription medications Patient was educated on the use of prescription medications for medical weight loss. This is a growing list and includes phentermine, Topamax, Qsymia, contrave, belviq and saxenda, wegovy etc. All prescription medications could have side effects including but not limited to kidney stones, seizure disorder cardiac arrhythmias heart attack pancreatitis, GI effects, Etc. Patient was encouraged to read the prescription insert and have coaching with their pharmacist and make an informed decision about taking medication and know that these medications are being prescribed with good intentions and we do not know how a patient would react to her medication. Some medications are FDA approved for weight loss and there is also off label use depending on patient's inability to afford medications in an attempt to lose weight D. Behavioral counseling was done to establish a relationship between food and an mood. Patient was provided information about local counseling and psychiatry and Dr Kumar at [facility]. We would like to cover regular topics and build on low glycemic eating exercise mindful eating, using yoga and meditation along with deep breathing and connecting with friends and family. E. MASS PAT reviewed, Patient's current medications were reviewed and opinion was given on medication that can cause weight gain and can be substituted F. Patient was assessed for risk with obesity including and not limiting to atherosclerosis heart disease stroke kidney disease, restrictive lung disease, irritable bowel syndrome and overall mortality. Risk of developing prediabetes diabetes and metabolic syndrome was discussed G. Therapeutic plan: We have decided to make therapeutic plan which would include choosing wisely on calories restricting portion getting active, tracking weight, getting good quality sleep and working on time management H. Patient will follow up in 4 weeks for weight management Total time spent today was 60 minutes of which greater than 50% was spent on coordinating and counseling Case discussed with collaborating physician Polina Valerio who reviewed the assessment and plan. Chart, medications, labs, vital signs reviewed. Dictation was accomplished with the use of CARDFREE voice recognition software, prone to medical misidentifications and grammatical errors. This is unintentional and the practitioner does try to identify and correct these, but some could still be present. Please do not hesitate to contact practitioner for clarification. All questions answered to patients satisfaction. Patient verbalized understanding of diagnosis and treatments explained. To call sooner prior to next visit it any questions/concerns arise. Plan Of Treatment Pending Test Test Name Order Date INSULIN LEVEL 04/26/2025 LIPID PANEL, STANDARD 04/26/2025 COMPREHENSIVE METABOLIC PANEL 04/26/2025 HEMOGLOBIN A1c 04/26/2025 VITAMIN B12 04/26/2025 TSH 04/26/2025 Next Appt Details Provider Name:Andrea Schaefferkin, 05/09/2025 02:00:00 PM, [address], [place], [address], Provider Name:Andrea Schaefferkin, 05/30/2025 10:15:00 AM, [address], [place], [address], Insurance Providers Payer Name Payer Address Payer Phone Subscriber Number Group Number Insured Name Patient Relationship to Insured Coverage Start Date Coverage End Date [facility] [address] [place] [address] [phone] [id number] Juliana Boyd Self - patient is the insured 1 Medical (General) History Medical History History ICD Code diabetes weight gain/loss arthritis hearing problems thyroid disease kidney stones depression hemorrhoids liver disease Surgical History Surgery Date(Month/Year) tonsils hernia wisdom teeth
== END 2025-05-03 09:41 | disposition home or self-care (01) ==
LOC: HO.HAP 09:40
PROVIDERS: Visit Provider Internal Medicine
DX: Z46.1 Encounter for fitting and adjustment of hearing aid (principal); H90.42 Sensorineural hearing loss, unilateral, left ear, with unrestricted hearing on the contralateral side
CPT/HCPCS: V5299

== ENCOUNTER 2025-05-23 14:22 | Outpatient (REF) | payer SELFPAY ==
--- OUTSIDE RECORDS SUMMARY | 2025-05-23 16:02 | XMS_ITS | Encounter Summary ---
Author Organization [facility] Address [address] [place] [address] [place] [address] Phone Care Team Providers Care Purification Operator Name Role Phone Pita Greene MD Primary Care Provider [phone] Ty Lilly MD Unavailable [phone] Papito Izaguirre MD Unavailable [phone] Encounter Details Date Type Department Care Team (Late st Contact Info) Description 04/09/2022 Procedure Pass [facility] US [address] [place] [address] Social History Tobacco Use Types Packs/Day Years [...] 04/11/2022 9:00 PM Mimi Hernandez, THAD * [place] Suicide Severity Rating Scale (Screener/Recent Self-Report) Question [...] st Contact Info) Description 12/26/2024 Procedure Pass [facility] Cardiac US [address] [place] [address] 01/08/2026 1:30 PM EDT Appointment [facility] Cardiac US [address] [place] [address] Papito Izaguirre MD [address] [place] [address] ALEXANDER@[facility] 01/08/2026 3:00 PM EDT Office Visit [facility] Cardiovascular Medicine [address] [facility], 5th Floor, [address] [place] [address] Papito Izaguirre MD [address] [place] [address] ALEXANDER@[facility] documented as of this encounter Visit Diagnoses Not on filedocumented in this encounter Additional Health Concerns Infection Onset Date Last Indicated Resolved Time CoV-Risk 09/10/2023 09/10/2023 09/10/2023 3:10 PM EST COVID-19 09/10/2023 09/10/2023 10/01/2023 1:23 AM EDT documented as of this encounter Care Teams Purification Operator Relationship Specialty Start Date End Date Pita Greene MD [address] [place] [address] PCP - General Internal Medicine 01/31/22 Ty Lilly MD [address] [place] [address] Internal Medicine 03/20/22 Paipto Izaguirre MD [address] [place] [address] ALEXANDER@[email or web address] Cardiology 12/04/22 documented as of this encounter Additional Source Comments The information contained in this document represents components of the legal health record. It is not the complete legal health record.[facility]
--- OUTSIDE RECORDS SUMMARY | 2025-05-23 16:02 | XMS_ITS | Encounter Summary ---
Author Organization [facility] Address [address] [place] [address] Phone Care Team Providers Care Global Project Manager Name Role Phone Pita Greene MD Primary Care Provider [phone] Ty Lilly MD Unavailable [phone] Papito Izaguirre MD Unavailable [phone] Encounter Details Date Type Department Care Team (Late st Contact Info) Description 05/15/2022 Procedure Pass [facility] Cardiac US [address] [place] [address] Social History Tobacco Use Types Packs/Day Years [...] [facility] [place] Card[facility] US [address] [place] [address] 01/08/2026 1:30 PM EDT Appointment [facility] Cardiac US [address] [place] [address] Papito Izaguirre MD [address] [address] ALEXANDER@[facility] 01/08/2026 3:00 PM EDT Office Visit [facility] Cardiovascular Medicine 32 [facility], 5th Floor, [address] [place] [address] Papito Izaguirre MD [address] [place] [address] ALEXANDER@[facility] documented as of this encounter Visit Diagnoses Not on filedocumented in this encounter Additional Health Concerns Infection Onset Date Last Indicated Resolved Time CoV-Risk 09/10/2023 09/10/2023 09/10/2023 3:10 PM EST COVID-19 09/10/2023 09/10/2023 10/01/2023 1:23 AM EDT Assessment Noted Time PHQ-9 Depression Total Score: 14 022 3:36 PM EST documented as of this encounter Care Teams Global Project Manager Relationship Specialty Start Date End Date Pita Greene MD [address] [place] [address] PCP - General Internal Medicine 01/31/22 Ty Lilly MD [address] [place] [address] Internal Medicine 03/20/22 Papito Izaguirre MD [address] [place] [address] ALEXANDER@[facility] Cardiology 12/04/22 documented as of this encounter Additional Source Comments The information contained in this document represents components of the legal health record. It is not the complete legal health record.[facility]
--- OUTSIDE RECORDS SUMMARY | 2025-05-23 16:02 | XMS_ITS | Encounter Summary ---
Author Organization [facility] Address [address] [place] [address] Phone Care Team Providers Care Buggy Operator Name Role Phone Ty Lilly MD Primary Care Provider [phone] Pita Greene MD Primary Care Provider [phone] Ty Lilly MD Unavailable [phone] Papito Izaguirre MD Unavailable [phone] Encounter Details Date Type Department Care Team (Late st Contact Info) Description 03/08/2018 Ancillary Orders [facility], X-Ray - [address] [place] [address] Leif GranadosTABERNASH, [place] [address] [place] [address] Midline thoracic back pain, unspecified chronicity Social [...] Contact Info) Description 12/26/2024 Procedure [place] [facility] [place] [address] [place] [address] 01/08/2026 1:30 PM EDT Appointment [facility] [place] [address] [place] [address] Papito Izaguirre MD [address] [place] [address] ALEXANDER@[email or web address] 01/08/2026 3:00 PM EDT Office [place] [facility] [facility] [place] 32 [facility], 5th Floor, [address] [place] [address] Papito Izaguirre MD [address] [place] [address] ALEXANDER@[email or web address] documented as of this encounter Results * XR THORACIC SPINE 3 VIEW (03/08/2018 3:57 PM EDT) Anatomical Region Laterality Modality T-spine Radiographic Juliet ging 03/08/2018 4:16 PM EDT Impressions 03/08/2018 4:18 PM EDT Osteopenia and mild scoliosis. POS - [id number] Narrative 03/08/2018 4:18 PM EDT HISTORY: As [...] IMPRESSION: Osteopenia and mild scoliosis. POS - [id number] Leif Flannery Darwin DC IMG XR SPINE Final Result documented in this encounter Visit Diagnoses Diagnosis Midline thoracic back pain, unspecified chronicity Midline thoracic back pain, unspecified chronicity documented in this encounter Additional Health Concerns Infection Onset Date Last Indicated Resolved Time CoV-Risk 09/10/2023 09/10/2023 09/10/2023 3:10 PM EST COVID-19 09/10/2023 09/10/2023 10/01/2023 1:23 AM EDT documented as of this encounter Care Teams Buggy Operator Relationship Specialty Start Date End Date Ty Lilly MD PCP - General Internal Medicine 03/08/18 01/30/22 Pita Greene MD [address] [place] [address] PCP - General Internal Medicine 01/31/22 Ty Lilly MD Internal Medicine 03/20/22 Papito Izaguirre MD [address] [place] [address] ALEXANDER@[email or web address] Cardiology 12/04/22 documented as of this encounter Additional Source Comments The information contained in this document represents components of the legal health record. It is not the complete legal health record.[facility]
--- OUTSIDE RECORDS SUMMARY | 2025-05-23 16:03 | XMS_ITS | Encounter Summary ---
Author Organization [facility] Address [address] [place] [address] [place] [address] Phone Care Team Providers Care Senior Architect/Design Manager Name Role Phone Pita Greene MD Primary Care Provider [phone] Ty Lilly MD Unavailable [phone] Papito Izaguirre MD Unavailable [phone] Encounter Details Date Type Department Care Team (Late st Contact Info) Description 05/25/2022 Procedure Pass [facility], Ct Scan - [address] [address] Social History Tobacco Use Types Packs/Day Years [...] 8:27 PM EST Tomi Ruiz RN * [place] Suicide Severity Rating Scale (Screener/Recent Self-Report) Question [...] st Contact Info) Description 12/26/2024 Procedure Pass [facility] Cardiac US [address] [place] [address] 01/08/2026 1:30 PM EDT Appointment [facility] Cardiac US [address] [place] [address] Papito Izaguirre MD [address] [place] [address] ALEXANDER@[email or web address] 01/08/2026 3:00 PM EDT Office Visit [facility] Cardiovascular Medicine [address] [place] [address], 5th Floor, [address] [place] [address] Papito Izaguirre MD [address] [place] [address] ALEXANDER@[facility] documented as of this encounter Visit Diagnoses Not on filedocumented in this encounter Additional Health Concerns Infection Onset Date Last Indicated Resolved Time CoV-Risk 09/10/2023 09/10/2023 09/10/2023 3:10 PM EST COVID-19 09/10/2023 09/10/2023 10/01/2023 1:23 AM EDT Assessment Noted Time PHQ-9 Depression Total Score: 14 022 3:36 PM EST documented as of this encounter Care Teams Senior Architect/Design Manager Relationship Specialty Start Date End Date Pita Greene MD [address] [place] [address] PCP - General Internal Medicine 01/31/22 Ty Lilly MD [address] [place] [address] Internal Medicine 03/20/22 Papito Izaguirre MD [address] [place] [address] ALEXANDER@[email or web address] Cardiology 12/04/22 documented as of this encounter Additional Source Comments The information contained in this document represents components of the legal health record. It is not the complete legal health record.[facility]
--- OUTSIDE RECORDS SUMMARY | 2025-05-23 16:03 | XMS_ITS | Encounter Summary ---
Author Organization [facility] Address [address] [place] [address] [place] [address] Phone Care Team Providers Care Assessment Consultant Name Role Phone Pita Greene MD Primary Care Provider [phone] Ty Lilly MD Unavailable [phone] Papito Izaguirre MD Unavailable [phone] Encounter Details Date Type Department Care Team (Late st Contact Info) Description 11/23/2023 Procedure Pass [facility] US [address] [place] [address] Social History Tobacco Use Types Packs/Day Years [...] [facility] Card[facility] US [address] [place] [address] 01/08/2026 1:30 PM EDT Appointment [facility] [place] US [address] [place] [address] Papito Izaguirre MD [address] [place] [address] ALEXANDER@[facility] 01/08/2026 3:00 PM EDT Office Visit [facility] [place] Medicine 32 [facility], 5th Floor, [address] [place] [address] Papito Izaguirre MD [address] [place] [address] ALEXANDER@[facility] documented as of this encounter Visit Diagnoses Not on filedocumented in this encounter Additional Health Concerns Assessment Noted Time PHQ-9 Depression Total Score: 14 022 3:36 PM EST documented as of this encounter Care Teams Assessment Consultant Relationship Specialty Start Date End Date Pita Greene MD [address] [place] [address] PCP - General Internal Medicine 01/31/22 Ty Lilly MD [address] [place] [address] Internal Medicine 03/20/22 Papito Izaguirre MD [address] [place] [address] ALEXANDER@[email or web address] Cardiology 12/04/22 documented as of this encounter Additional Source Comments The information contained in this document represents components of the legal health record. It is not the complete legal health record.[facility]
--- OUTSIDE RECORDS SUMMARY | 2025-05-23 16:03 | XMS_ITS | Encounter Summary ---
Author Organization [facility] Address [address] [facility] [address] [place] [address] Phone Care Team Providers Care Art Educator Name Role Phone iPta Greene MD Primary Care Provider [phone] Ty Lilly MD Unavailable [phone] Papito Izaguirre MD Unavailable [phone] Reason for Referral * MRI/CAT Scan (Emergency) - Closed Specialty Diagnoses / Procedures Referred By Leatha jose Referred To Contact Radiology Diagnoses Preop cardiovascular exam Procedures CT Cardiac CT Angio Coronary Arteries CHG CT ANGIO HRT CORNRY ART/BYPASS GRFTS CONTRST 3D POST CHG CT HEART CONTRAST EVAL CARDIAC STRUCT/MORPH Anca Rice FNP Phone: tel: fax: mailto:[email or web address].[address] [address] Phone: tel: Referral ID Status Reason Start Date Expiration Date Visits Re quested Visits Authorized [id number] Closed 02/03/2022 03/05/2022 1 1 Encounter Details Date Type Department Care Team (Latest Contact Info) Description 02/03/2022 Ancillary Orders [facility] [place] [address] [place] [address], 6th Floor, [address] [place] [address] Anca Rice FNP [address] [facility], [place] [address] [place] [address] [email or web address]@[email or web address] Preop cardiovascular exam Social History Tobacco Use [...] Upcoming Encounters Date Type Department Care Team ([facility] st Contact Info) Description 12/26/2024 Procedure Pass [facility] [place] [address] [place] [address] 01/08/2026 1:30 PM EDT Appointment [facility] [place] [address] [place] [address] Papito Izaguirre MD [address] [place] [address] ALEXANDER@[facility] 01/08/2026 3:00 PM EDT Office Visit [facility] [place]ovascular Medicine [address] [place] [address], 5th Floor, [address] [place] [address] Papito Izaguirre MD [address] [place] [address] ALEXANDER@[facility] documented as of this encounter Results [...] pericardial effusion. No bypass grafts are identified. [place] CORONARY ARTERIES: There is no evidence for [...] AND FUNCTION: The left atrium is enlarged mm in AP diameter. Right atrial enlargement. There are no thrombi inthe left ventricle. There are no regional wall motion abnormalities. No evidence of pericardial effusion. No bypass grafts are identified. [place] CORONARY ARTERIES: There is no evidence for [...] documented as of this encounter Care Teams Art Educator Relationship Specialty Start Date End Date Pita Greene MD [address] [place] [address] PCP - General Internal Medicine 01/31/22 Ty Lilly MD [address] [place] [address] Internal Medicine 03/20/22 Papito Izaguirre MD [address] [place] [address] ALEXANDER@[email or web address] Cardiology 12/04/22 documented as of this encounter Additional Source Comments The information contained in this document represents components of the legal health record. It is not the complete legal health record.[facility]
--- OUTSIDE RECORDS SUMMARY | 2025-05-23 16:03 | XMS_ITS | Encounter Summary ---
Author Organization [facility] Address [address] [place] [address] [place] [address] Phone Care Team Providers Care Rate Setter Name Role Phone Ty Lilly MD Primary Care Provider [phone] Pita Greene MD Primary Care Provider [phone] Ty Lilly MD Unavailable [phone] Papito Izaguirre MD Unavailable [phone] Encounter Details Date Type Department Care Team (Late st Contact Info) Description 01/10/2022 Procedure Pass [facility], [place] [address] [facility], 2nd Floor, [address] [place] [address] Social History Tobacco Use Types Packs/Day Years [...] Contact Info) Description 12/26/2024 Procedure Pass [facility] [place] [place] [address] [place] [address] 01/08/2026 1:30 PM EDT Appointment [facility] [place] [address] [place] [address] Papito Izaguirre MD [address] [place] [address] ALEXANDER@[facility] 01/08/2026 3:00 PM EDT Office Visit [facility] [place] 32 [facility], 5th Floor, [address] [place] [address] Papito Izaguirre MD [address] [place] [address] ALEXANDER@[facility] documented as of this encounter Visit Diagnoses Not on filedocumented in this encounter Additional Health Concerns Infection Onset Date Last Indicated Resolved Time CoV-Risk 09/10/2023 09/10/2023 09/10/2023 3:10 PM EST COVID-19 09/10/2023 09/10/2023 10/01/2023 1:23 AM EDT documented as of this encounter Care Teams Rate Setter Relationship Specialty Start Date End Date Ty Lilly MD PCP - General Internal Medicine 03/08/18 01/30/22 Pita Greene MD [address] [place] [address] PCP - General Internal Medicine 01/31/22 Ty Lilly MD Internal Medicine 03/20/22 Papito Izaguirre MD [address] [place] [address] ALEXANDER@[email or web address] Cardiology 12/04/22 documented as of this encounter Additional Source Comments The information contained in this document represents components of the legal health record. It is not the complete legal health record.[facility]
--- OUTSIDE RECORDS SUMMARY | 2025-05-23 16:03 | XMS_ITS | Encounter Summary ---
Author Organization [facility] Address [address] [place] [address] Phone Care Team Providers Care Folder Operator Name Role Phone Pita Greene MD Primary Care Provider [phone] Ty Lilly MD Unavailable [phone] Papito Izaguirre MD Unavailable [phone] Encounter Details Date Type Department Care Team (Late st Contact Info) Description 07/11/2022 Procedure Pass [facility], Ct Scan - [address] [address] Social History Tobacco Use Types Packs/Day Years [...] [facility] US [address] [place] [address] 01/08/2026 1:30 PM EDT Appointment [facility] Cardiac US [address] [place] [address] Papito Izaguirre MD [address] [address] ALEXANDER@[email or web address] 01/08/2026 3:00 PM EDT Office Visit [facility] Cardiovascular Medicine 32 [facility], 5th Floor, [address] [place] [address] Papito Izaguirre MD [address] [place] [address] ALEXANDER@[facility] documented as of this encounter Visit Diagnoses Not on filedocumented in this encounter Additional Health Concerns Infection Onset Date Last Indicated Resolved Time CoV-Risk 09/10/2023 09/10/2023 09/10/2023 3:10 PM EST COVID-19 09/10/2023 09/10/2023 10/01/2023 1:23 AM EDT Assessment Noted Time PHQ-9 Depression Total Score: 14 022 3:36 PM EST documented as of this encounter Care Teams Folder Operator Relationship Specialty Start Date End Date Pita Greene MD [address] [place] [address] PCP - General Internal Medicine 01/31/22 Ty Lilly MD [address] [place] [address] Internal Medicine 03/20/22 Papito Izaguirre MD [address] [place] [address] ALEXANDER@[email or web address] Cardiology 12/04/22 documented as of this encounter Additional Source Comments The information contained in this document represents components of the legal health record. It is not the complete legal health record.[facility]
--- OUTSIDE RECORDS SUMMARY | 2025-05-23 16:03 | XMS_ITS | Encounter Summary ---
Author Organization [facility] Address [address] [place] [address] [place] [address] Phone Care Team Providers Care Supervisor Filter Assembly Name Role Phone Pita Greene MD Primary Care Provider [phone] Ty Lilly MD Unavailable [phone] Papito Izaguirre MD Unavailable [phone] Encounter Details Date Type Department Care Team (Late st Contact Info) Description 12/24/2024 Procedure Pass [facility], Ct Scan - [address] [address] Social History Tobacco Use Types Packs/Day Years [...] 9:11 AM EDT Keith Conteh RN * [place] Suicide Severity Rating Scale (Screener/Recent Self-Report) Question [...] Pass [facility] [place] [address] [place] [address] 01/08/2026 1:30 PM EDT Appointment [facility] [place] [place] [address] [place] [address] Papito Izaguirre MD [address] [place] [address] ALEXANDER@[email or web address] 01/08/2026 3:00 PM EDT Office Visit [facility] [place] [address] [facility], 5th Floor, [address] [place] [address] Papito Izaguirre MD [address] [place] [address] ALEXANDER@[facility] documented as of this encounter Visit Diagnoses Not on filedocumented in this encounter Additional Health Concerns Assessment Noted Time PHQ-9 Depression Total Score: 14 022 3:36 PM EST documented as of this encounter Care Teams Supervisor Filter Assembly Relationship Specialty Start Date End Date Pita Greene MD [address] [place] [address] PCP - General Internal Medicine 01/31/22 Ty Lilly MD [address] [place] [address] Internal Medicine 03/20/22 Papito Izaguirre MD [address] [place] [address] ALEXANDER@[email or web address] Cardiology 12/04/22 documented as of this encounter Additional Source Comments The information contained in this document represents components of the legal health record. It is not the complete legal health record.[facility]
--- OUTSIDE RECORDS SUMMARY | 2025-05-23 16:03 | XMS_ITS | Encounter Summary ---
Author Organization [facility] Address [address] [place] [address] [place] [address] Phone Care Team Providers Care Mechanics Handyman Name Role Phone Pita Greene MD Primary Care Provider [phone] Ty Lilly MD Unavailable [phone] Papito Izaguirre MD Unavailable [phone] Encounter Details Date Type Department Care Team (Late st Contact Info) Description 04/09/2022 Procedure Pass [facility] PERIOPERATIVE DEPT [address] [place] [address] Social History Tobacco Use Types Packs/Day Years [...] 9:00 PM EDT Mimi Aaron RN * [place] Suicide Severity Rating Scale (Screener/Recent Self-Report) Question [...] st Contact Info) Description 12/26/2024 Procedure Pass [facility] Cardiac US [address] [place] [address] 01/08/2026 1:30 PM EDT Appointment [facility] Cardiac US [address] [place] [address] Papito Izaguirre MD [address] [place] [address] ALEXANDER@[email or web address] 01/08/2026 3:00 PM EDT Office Visit [facility] Cardiovascular Medicine [address] [facility], 5th Floor, [address] [place] [address] Papito Izaguirre MD [address] [place] [address] ALEXANDER@[email or web address] documented as of this encounter Visit Diagnoses Not on filedocumented in this encounter Additional Health Concerns Infection Onset Date Last Indicated Resolved Time CoV-Risk 09/10/2023 09/10/2023 09/10/2023 3:10 PM EST COVID-19 09/10/2023 09/10/2023 10/01/2023 1:23 AM EDT documented as of this encounter Care Teams Mechanics Handyman Relationship Specialty Start Date End Date Pita Greene MD [address] [place] [address] PCP - General Internal Medicine 01/31/22 yT Lilly MD [address] [place] [address] Internal Medicine 03/20/22 Papito Izaguirre MD [address] [place] [address] ALEXANDER@[email or web address] Cardiology 12/04/22 documented as of this encounter Additional Source Comments The information contained in this document represents components of the legal health record. It is not the complete legal health record.[facility]
--- OUTSIDE RECORDS SUMMARY | 2025-05-23 16:03 | XMS_ITS | Encounter Summary ---
Author Organization [facility] Address [address] [place] [address] [place] [address] Phone Care Team Providers Care Patient Insurance Clerk Name Role Phone Pita Greene MD Primary Care Provider [phone] Ty Lilly MD Unavailable [phone] Papito Izaguirre MD Unavailable [phone] Encounter Details Date Type Department Care Team (Late st Contact Info) Description 05/25/2022 Procedure Pass [facility], Ct Scan - [address] [address] Social History Tobacco Use Types Packs/Day Years [...] 8:27 PM EST Tomi Ruiz RN * [place] Suicide Severity Rating Scale (Screener/Recent Self-Report) Question [...] Contact Info) Description 12/26/2024 Procedure Pass [facility] Cardiac US [address] [place] [address] 01/08/2026 1:30 PM EDT Appointment [facility] Cardiac US [address] [place] [address] Papito Izaguirre MD [address] [place] [address] ALEXANDER@[email or web address] 01/08/2026 3:00 PM EDT Office Visit [facility] Cardiovascular Medicine [address] [place] [address], 5th Floor, [address] [place] [address] Papito Izaguirre MD [address] [place] [address] ALEXANDER@[email or web address] documented as of this encounter Visit Diagnoses Not on filedocumented in this encounter Additional Health Concerns Infection Onset Date Last Indicated Resolved Time CoV-Risk 09/10/2023 09/10/2023 09/10/2023 3:10 PM EST COVID-19 09/10/2023 09/10/2023 10/01/2023 1:23 AM EDT Assessment Noted Time PHQ-9 Depression Total Score: 14 022 3:36 PM EST documented as of this encounter Care Teams Patient Insurance Clerk Relationship Specialty Start Date End Date Pita Greeen MD [address] [place] [address] PCP - General Internal Medicine 01/31/22 Ty Lilly MD [address] [place] [address] Internal Medicine 03/20/22 Papito Izaguirre MD [address] [place] [address] ALEXANDER@[email or web address] Cardiology 12/04/22 documented as of this encounter Additional Source Comments The information contained in this document represents components of the legal health record. It is not the complete legal health record.[facility]
--- OUTSIDE RECORDS SUMMARY | 2025-05-23 16:03 | XMS_ITS | Encounter Summary ---
Author Organization [facility] Address [address] [place] [address] Phone Care Team Providers Care Tobacco Sorter Name Role Phone Pita Greene MD Primary Care Provider [phone] Ty Lilly MD Unavailable [phone] Papito Izaguirre MD Unavailable [phone] Encounter Details Date Type Department Care Team (Late st Contact Info) Description 05/22/[address] [facility], [address] [place] [address] Social History Tobacco Use Types Packs/Day Years [...] 05/25/2022 8:27 PM Tomi Liz RN * [place] Suicide Severity Rating Scale (Screener/Recent Self-Report) Question [...] Contact Info) Description 12/26/2024 Procedure Pass [facility] Cardiac US [address] [place] [address] 01/08/2026 1:30 PM EDT Appointment [facility] Cardiac US [address] [place] [address] Papito Izaguirre MD [address] [place] [address] ALEXANDER@[email or web address] 01/08/2026 3:00 PM EDT Office Visit [facility] Cardiovascular Medicine 32 [facility], 5th Floor, [address] [place] [address] Papito Izaguirre MD [address] [place] [address] ALEXANDER@[email or web address] documented as of this encounter Visit Diagnoses Not on filedocumented in this encounter Additional Health Concerns Infection Onset Date Last Indicated Resolved Time CoV-Risk 09/10/2023 09/10/2023 09/10/2023 3:10 PM EST COVID-19 09/10/2023 09/10/2023 10/01/2023 1:23 AM EDT Assessment Noted Time PHQ-9 Depression Total Score: 14 022 3:36 PM EST documented as of this encounter Care Teams Tobacco Sorter Relationship Specialty Start Date End Date Pita Greene MD [address] [place] [address] PCP - General Internal Medicine 01/31/22 Ty Lilly MD [address] [place] [address] Internal Medicine 03/20/22 Papito Izaguirre MD [address] [place] [address] ALEXANDER@[email or web address] Cardiology 12/04/22 documented as of this encounter Additional Source Comments The information contained in this document represents components of the legal health record. It is not the complete legal health record.[facility]
--- OUTSIDE RECORDS SUMMARY | 2025-05-23 16:03 | XMS_ITS | Encounter Summary ---
Author Organization [facility] Address [address] [place] [address] Phone Care Team Providers Care Performance Test Engineer Name Role Phone Pita Greene MD Primary Care Provider [phone] Ty Lilly MD Unavailable [phone] Papito Izaguirre MD Unavailable [phone] Encounter Details Date Type Department Care Team (Late st Contact Info) Description 02/27/2022 Procedure Pass [facility] PERIOPERATIVE DEPT [address] [place] [id number] Social History Tobacco Use Types Packs/Day Years [...] st Contact Info) Description 12/26/2024 Procedure Pass [facility] Cardiac US [address] [place] [address] 01/08/2026 1:30 PM EDT Appointment [facility] Cardiac US [address] [place] [address] Papito Izaguirre MD [address] [address] ALEXANDER@[email or web address] 01/08/2026 3:00 PM EDT Office Visit [facility] Cardiovascular Medicine 32 [facility], 5th Floor, [address] [place] [address] Papito Izaguirre MD [address] [place] [address] ALEXANDER@[email or web address] documented as of this encounter Visit Diagnoses Not on filedocumented in this encounter Additional Health Concerns Infection Onset Date Last Indicated Resolved Time CoV-Risk 09/10/2023 09/10/2023 09/10/2023 3:10 PM EST COVID-19 09/10/2023 09/10/2023 10/01/2023 1:23 AM EDT documented as of this encounter Care Teams Performance Test Engineer Relationship Specialty Start Date End Date Pita Greene MD [address] [place] [address] PCP - General Internal Medicine 01/31/22 Ty Lilly MD [address] [place] [address] Internal Medicine 03/20/22 Papito Izaguirre MD [address] [place] [address] ALEXANDER@[email or web address] Cardiology 12/04/22 documented as of this encounter Additional Source Comments The information contained in this document represents components of the legal health record. It is not the complete legal health record.[facility]
--- OUTSIDE RECORDS SUMMARY | 2025-05-23 16:03 | XMS_ITS | Clinical Summary ---
Author Organization [facility] Address [address] [place] [address] Phone Care Team Providers Care Stage Producer Name Role Phone Pita Greene MD Primary Care Provider Ty Lilly MD Unavailable [phone] Papito Izaguirre MD Unavailable [phone] Allergies Active Allergy Reactions Criticality Noted Date [...] 2 sprays by Nasal route daily. 12/14/19 Active lamoTRIgine (LAMICTAL) 150 MG IMMEDIATE release [...] Description 04/12/2025 2:20 PM EDT Office Visit [facility] [address] [place] [address] Daysi [place], LUIZ Sore throat (Primary Dx) 04/11/2025 4:00 PM EDT Telemedicine [facility] [address] [facility], 2nd Floor, [address] [place] [address] Delia Reyes MD Atelectasis of right lung (Primary Dx) 04/05/2025 7:53 AM EDT - 04/05/2025 11:59 PM EDT Hospital Encounter [facility] Ct Scan [address] [address] Delia Reyes MD Discharge Disposition: Home or Self Care 03/14/2025 Procedure Pass [facility] Ct Scan [address] [address] 03/14/2025 Orders Only [facility] [address] [place] [address], 2nd Floor, [address] [place] [address] Delia Reyes MD Atelectasis of right lung (Primary Dx) 03/06/2025 2:05 PM EDT - 03/06/2025 11:59 PM EDT Hospital Encounter [facility] X-Ray - [address] [address] Delia Reyes MD Discharge Disposition: Home or [...] Info) Description 12/26/2024 Procedure Pass [facility] US [address] [place] [address] 01/08/2026 1:30 PM EDT Appointment [facility] Card[facility] US [address] [place] [address] Papito Izaguirre MD [address] [place] [address] ALEXANDER@[email or web address] 01/08/2026 3:00 PM EDT Office Visit [facility] 32 [facility], 5th Floor, [address] [place] [address] Papito Izaguirre MD [address] [place] [address] ALEXANDER@[email or web address] Health Maintenance Due Date Last Done Comments [...] this topic Medical Devices Implanted Type Area Division Sales Manager Device Identifier Shelf Expiration Date Model / Serial / Lot Ring Annuloplasty 32mm Mitral Keith Richey Eligoy Band Silicone Rubber Polyester Cover - [id number] Implanted:Qty: 1 on 04/09/2022 by Tess Wilson MD at [facility] N/A: Heart [employer] 05/26/2026 [id number] / [id number] / Procedures Procedure Name Priority Date/Time Associated [...] & B/RSV (Cepheid) (04/12/2025 2:41 PM EDT) [facility] RSV PCR Negative Negative [facility] SARS-CoV-2 (COVID-19) Negative Negative [facility] POC Influenza A PCR Negative Negative [facility] Influenza B PCR Negative Negative [facility] 04/12/2025 2:41 PM EDT 04/12/2025 3:19 PM EDT us Daysi [place] MILIEU COORDINATOR LAB POCT ENTER/EDIT ORDERA BLES Final Result [facility] [address] [phone] * POCT Rapid Strep A (04/12/2025 2:41 PM EDT) [facility] Strep A, PCR Not Detected Not Detected [facility] 04/12/2025 2:41 PM EDT 04/12/2025 3:06 PM EDT us Daysi [place] MILIEU COORDINATOR LAB POCT ENTER/EDIT ORDERA BLES Final Result [facility] [address] [address] [phone] * CT CHEST WITH CONTRAST (04/05/2025 8:12 AM EDT) Anatomical Region Laterality Modality Chest Computed Tomogra phy 04/06/2025 10:4 0 AM EDT Impressions 04/06/2025 10:52 AM EDT Right middle lobe consolidation/volume loss, decreased since 07/23/2022, most likely represent atelectasis/scar. No underlying mass or mucous plugging. Narrative 04/06/2025 10:[address] CHEST WITH CONTRAST Referring clinician's provided indication for this examination in [facility]: *Abnormal imaging; Assess right middle lobe [...] clinician's provided indication for this examination in [facility]:*Abnormal imaging; Assess right middle lobe which appears to have partialatelectasis, look for endobronchial lesions plugging TECHNIQUE: Multidetector CT of the chest was performed with intravenouscontrast using tailored dose modulation techniques. COMPARISON: CT CHEST WITH CONTRAST ; CT ANGIO CHEST WITH ANDWITHOUT CONTRAST ; XR CHEST PA AND LATERAL 2 [id number] FINDINGS: Devices/Tubes/Lines: None. Lungs: Elevated right hemidiaphragm, [...] underlying mass or mucousplugging. Delia Reyes MD [facility] CT CHEST Final Result * XR CHEST [...] Final Result from Last 3 Months Insurance [facility] [place] [address] [address] [place] [address] [place] [address] [place] [address] [place] [address] [facility] [place] [address] [place] [address] Advance Directives For more information, please contact: [phone] (9AM - 5PM Jenna/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 Operator Expl anation Healthcare Proxy 02/20/2022 1:23 PM * Full Code (Latest Code Status on File) Date Activated Date Inactivated Comments 04/09/2022 9:02 PM Question Answer Comments Code Status Confirmed With: Patient Code Status Communicated To: Inpatient Attending Care Teams Stage Producer Relationship Specialty Start Date End Date Pita Greene MD [address] [place] [address] PCP - General Internal Medicine 01/31/22 Ty Lilly MD [address] [place] [address] Internal Medicine 03/20/22 Papito Izaguirre MD [address] [place] [address] [email or web address] Cardiology 12/04/22 Additional Source Comments The information contained in this document represents components of the legal health record. It is not the complete legal health record.[facility]
--- OUTSIDE RECORDS SUMMARY | 2025-05-23 16:03 | XMS_ITS | Encounter Summary ---
Author Organization [facility] Address [address] [place] [address] [place] [address] Phone Care Team Providers Care International Trade Specialist Name Role Phone Pita Greene MD Primary Care Provider [phone] Ty Lilly MD Unavailable [phone] Papito Izaguirre MD Unavailable [phone] Encounter Details Date Type Department Care Team (Late st Contact Info) Description 12/05/2022 Procedure Pass [facility] Cardiac US [address] [place] [address] Social History Tobacco Use Types Packs/Day Years [...] [facility] Cardiac US [address] [place] [address] 01/08/2026 1:30 PM EDT Appointment [facility] Cardiac US [address] [place] [address] Papito Izaguirre MD [address] [place] [address] ALEXANDER@[email or web address] 01/08/2026 3:00 PM EDT Office Visit [facility] Cardiovascular Medicine 32 [facility], 5th Floor, [address] [place] [address] Papito Izaguirre MD [address] [place] [address] ALEXANDER@[email or web address] documented as of this encounter Visit Diagnoses Not on filedocumented in this encounter Additional Health Concerns Infection Onset Date Last Indicated Resolved Time CoV-Risk 09/10/2023 09/10/2023 09/10/2023 3:10 PM EST COVID-19 09/10/2023 09/10/2023 10/01/2023 1:23 AM EDT Assessment Noted Time PHQ-9 Depression Total Score: 14 022 3:36 PM EST documented as of this encounter Care Teams International Trade Specialist Relationship Specialty Start Date End Date Pita Greene MD [address] [place] [address] PCP - General Internal Medicine 01/31/22 Ty Lilly MD [address] [place] [address] Internal Medicine 03/20/22 Papito Izaguirre MD [address] [place] [address] ALEXANDER@[email or web address] Cardiology 12/04/22 documented as of this encounter Additional Source Comments The information contained in this document represents components of the legal health record. It is not the complete legal health record.[facility]
--- OUTSIDE RECORDS SUMMARY | 2025-05-23 16:03 | XMS_ITS | Encounter Summary ---
Author Organization [facility] Address [address] [place] [address] Phone Care Team Providers Care Vector Control Specialist Name Role Phone Pita Greene MD Primary Care Provider [phone] Ty Lilly MD Unavailable [phone] Papito Izaguirre MD Unavailable [phone] Encounter Details Date Type Department Care Team (Late st Contact Info) Description 11/11/2022 Procedure Pass [facility] Card[facility] US [address] [place] [address] Social History Tobacco Use Types Packs/Day Years [...] st Contact Info) Description 12/26/2024 Procedure Pass [facility] Cardiac US [address] [place] [address] 01/08/2026 1:30 PM EDT Appointment [facility] Card[facility] US [address] [place] [address] Papito Izaguirre MD [address] [place] [address] ALEXANDER@[email or web address] 01/08/2026 3:00 PM EDT Office Visit [facility] Cardiovascular Medicine 32 [facility], 5th Floor, [address] [place] [address] Papito Izaguirre MD [address] [place] [address] ALEXANDER@[email or web address] documented as of this encounter Visit Diagnoses Not on filedocumented in this encounter Additional Health Concerns Infection Onset Date Last Indicated Resolved Time CoV-Risk 09/10/2023 09/10/2023 09/10/2023 3:10 PM EST COVID-19 09/10/2023 09/10/2023 10/01/2023 1:23 AM EDT Assessment Noted Time PHQ-9 Depression Total Score: 14 022 3:36 PM EST documented as of this encounter Care Teams Vector Control Specialist Relationship Specialty Start Date End Date Pita Greene MD [address] [place] [address] PCP - General Internal Medicine 01/31/22 Ty Lilly MD [address] [place] [address] Internal Medicine 03/20/22 Papito Izaguirre MD [address] [place] [address] ALEXANDER@[email or web address] Cardiology 12/04/22 documented as of this encounter Additional Source Comments The information contained in this document represents components of the legal health record. It is not the complete legal health record.[facility]
--- OUTSIDE RECORDS SUMMARY | 2025-05-23 16:04 | XMS_ITS | Encounter Summary ---
Author Organization [facility] Address [address] [place] [address] Phone Care Team Providers Care Loan Counselor Name Role Phone Pita Greene MD Primary Care Provider [phone] Ty Lilly MD Unavailable [phone] Papito Izaguirre MD Unavailable [phone] Reason for Referral * MRI/CAT Scan - Closed Specialty Diagnoses / Procedures Referred By Contac t Referred To Contact Radiology Diagnoses Sensorineural hearing loss, unilateral, left ear, with unrestricted hearing on the contralateral side Dizziness and giddiness Meniere's disease, left ear Procedures MRI Brain CHG MRI BRAIN CHG MRI BRAIN CONTRAST CHG MRI BRAIN COMBO Gallito Lyle MD Phone: tel: fax: [email or web address] [address] Phone: tel: Referral ID Status Reason Start Date Expiration Date Visits Re quested Visits Authorized [id number] Closed 06/12/2022 07/12/2022 1 1 Encounter Details Date Type Department Care Team (Latest Contact Info) Description 05/22/2022 Transcribe Orders [address] [address] Gallito Lyle MD [address], [address] [place] [address] [email or web address] Sensorineural hearing loss, unilateral, left ear, with [...] 8:27 PM EST Tomi Ruiz RN * [place] Suicide Severity Rating Scale (Screener/Recent Self-Report) Question [...] st Contact Info) Description 12/26/2024 Procedure Pass [facility] Cardiac [address] [address] 01/08/2026 1:30 PM EDT Appointment [facility] Cardiac [address] [address] Papito Izaguirre MD [address] [address] ALEXANDER@[email or web address] 01/08/2026 3:00 PM EDT Office Visit [facility] Cardiovascular Medicine [address] [facility], 5th Floor, [address] [place] [address] Papito Izaguirre MD [address] [place] [facility] [place] [address] [email or web address] documented as of this encounter Results * [...] documented as of this encounter Care Teams Loan Counselor Relationship Specialty Start Date End Date Pita Greene MD [address] [place] [address] PCP - General Internal Medicine 01/31/22 Ty Lilly MD [address] [place] [address] Internal Medicine 03/20/22 Papito Izaguirre MD [address] [place] [address] A[place]ANDER@[email or web address] Cardiology 12/04/22 documented as of this encounter Additional Source Comments The information contained in this document represents components of the legal health record. It is not the complete legal health record.[facility]
--- OUTSIDE RECORDS SUMMARY | 2025-05-23 16:04 | XMS_ITS | Encounter Summary ---
Author Organization [facility] Address [address] [place] [address] [place] [phone] Phone Care Team Providers Care Business Process Representative Name Role Phone Pita Greene MD Primary Care Provider [phone] Ty Lilly MD Unavailable [phone] Papito Izaguirre MD Unavailable [phone] Encounter Details Date Type Department Care Team (Late st Contact Info) Description 12/15/2022 Procedure Pass [facility] [address] [place] [address] Social History Tobacco Use Types Packs/Day Years [...] st Contact Info) Description 12/26/2024 Procedure Pass [facility] Card[facility] US [address] [place] [phone] 01/08/2026 1:30 PM EDT Appointment [facility] Cardiac US [address] [place] [phone] Papito Izaguirre MD [address] [place] [phone] [email or web address] 01/08/2026 3:00 PM EDT Office Visit [facility] Cardiovascular Medicine [address] [facility], 5th Floor, [address] [place] [address] Papito Izaguirre MD [address] [place] [phone] [email or web address] documented as of this encounter Visit Diagnoses Not on filedocumented in this encounter Additional Health Concerns Infection Onset Date Last Indicated Resolved Time CoV-Risk 09/10/2023 09/10/2023 09/10/2023 3:10 PM EST COVID-19 09/10/2023 09/10/2023 10/01/2023 1:23 AM EDT Assessment Noted Time PHQ-9 Depression Total Score: 14 022 3:36 PM EST documented as of this encounter Care Teams Business Process Representative Relationship Specialty Start Date End Date Pita Grenee MD [address] [place] [phone] PCP - General Internal Medicine 01/31/22 Ty Lilly MD [address] [place] [phone] Internal Medicine 03/20/22 Papito Izaguirre MD [address] [place] [phone] [email or web address] 12/04/22 documented as of this encounter Additional Source Comments The information contained in this document represents components of the legal health record. It is not the complete legal health record.[facility]
--- OUTSIDE RECORDS SUMMARY | 2025-05-23 16:04 | XMS_ITS | Encounter Summary ---
Author Organization [facility] Address [address] [place] [phone] Phone Care Team Providers Care Sql Programmer Analyst Name Role Phone Pita Greene MD Primary Care Provider [phone] Ty Lilly MD Unavailable [phone] Papiot Izaguirre MD Unavailable [phone] Reason for Visit * Reason Comments CR Assessment Encounter Details Date Type Department Care Team (Late st Contact Info) Description 05/21/2022 Documentation [facility] Cardiop[facility] Rehabilitation [address] [place] [address] Darya Miner RN CR Assessment Social History [facility] [address] [place] [address] 01/08/2026 1:30 PM EDT Appointment [facility] Cardiac US [address] [place] [address] Papito Izaguirre MD [address] [place] [phone] [email or web address] 01/08/2026 3:00 PM EDT Office Visit [facility] Cardiovascular Medicine [address] [facility], 5th [address], [address] [place] [address] Papito Izaguirre MD [address] [place] [phone] [email or web address] Scheduled Orders Name Type Priority Associated Diagnoses [...] documented as of this encounter Care Teams Sql Programmer Analyst Relationship Specialty Start Date End Date Pita Greene MD [address] [place] [phone] PCP - General Internal Medicine 01/31/22 Ty Lilly MD [address] [place] [phone] Internal Medicine 03/20/22 Papito Izaguirre MD [address] [place] [phone] [email or web address] Cardiology 12/04/22 documented as of this encounter Additional Source Comments The information contained in this document represents components of the legal health record. It is not the complete legal health record.[facility]
--- OUTSIDE RECORDS SUMMARY | 2025-05-23 16:04 | XMS_ITS | Patient Health Record ---
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 Prediabetes: 5.7 - 6.4 Diabetes: >6.4 Glycemic control for adults with diabetes: <7.0 Vitamin [id number] Reviewed date:04/28/2025 09:22:53 AM Interpretation: Performing Lab:[facility], [address] [facility], Phone - [phone], Director - Jacksony Notes/Report: Vitamin B12 980 150-6369 pg/mL [id number] Reviewed date:04/28/2025 09:22:53 AM Interpretation: Performing Lab:[facility], [address] [facility], Phone - [phone], Director - Darryn Notes/Report: TSH 1.670 0.450-4.500 uIU/mL [id number] Reviewed date:04/28/2025 09:22:53 AM Interpretation: Performing Lab:[facility], [address] [place] [address], Phone - [phone], Director - Darryn Notes/Report: Insulin 7.1 2.6-24.9 uIU/mL Errol Pili CMP14 Default A hand-written panel/profile was received from your office. In accordance with the [facility] Ambiguous Test Code Policy dated January 2003, we have completed your order by using the closest currently or formerly recognized AMA panel. We have assigned Comprehensive Metabolic Panel (14), Test Code #[id number] to this request. If this is not the testing you wished to receive on this specimen, please contact the [facility] Client Inquiry/Technical Services Department to clarify the test order. We appreciate your business. Lipid Panel-[id number] Reviewed date:04/28/2025 09:22:53 AM Interpretation: Performing Lab:[facility], [address] [place] [address], Phone - [phone], Director - Darryn Notes/Report: Cholesterol, Total 214 100-199 mg/dL H Triglycerides 67 0-149 mg/dL HDL Cholesterol 72 >39 mg/dL VLDL Cholesterol Vance 12 5-40 mg/dL LDL Chol Calc (NIH) 130 0-99 mg/dL H Comp. Metabolic Panel (14)-3 Reviewed date:04/28/2025 09:22:53 AM Interpretation: Performing Lab:[facility], [address] [place] [address], Phone - [phone], Director - Darryn Notes/Report: Glucose 110 70-99 mg/dL H BUN 17 8-27 mg/dL Creatinine 0.98 0.57-1.00 [...] 0-40 IU/L ALT (SGPT) 19 0-32 IU/L Errol Alejandre LP Default Reviewed date:04/28/2025 09:22:53 AM Interpretation: Performing Lab:[facility], [address], [place], Phone - [phone], Director - Darryn Notes/Report: Errol Alejandre LP Default A hand-written panel/profile was received from your office. In accordance with the [facility] Ambiguous Test Code Policy dated January 2003, we have completed your order by using the closest currently or formerly recognized AMA panel. We have assigned Lipid Panel, Test Code #[id number] to this request. If this is not the testing you wished to receive on this specimen, please contact the [facility] Client [facility]/Technical [facility] Department to clarify the test order. We appreciate your business. Reason For Referral Diagnosis 1 Dietary counseling ( Z71.3) Referring Provider First Name Pita Referring Provider Last Name [facility] Referred Organization [facility] [address] Referred Provider SHRUTHI VALERIO Referred Address [address] ,[place], [place],[address], Referred Provider Specialty Weight Manag ement Referral Priority Routine Medications Medication SIG (Take, Route, Frequency, Duration) Notes Start Date End Date Status Wegovy 0.25 MG/0.5ML Solution Auto-injector 0.5 mL Subcutaneous weekly; Duration: 30 days 05/09/2025 Active Evista 60 MG Tablet 1 tablet Orally Once a day Active Aspirin 81 81 MG Tablet Delayed Release 1 tablet 3x a week Orally as needed Active LaMICtal 150 MG Tablet 1 tablet Orally o nce a day Active buPROPion HCl ER (SR) 150 MG Tablet Extended Release 12 Hour 1 tablet in the morning Orally Once a day Active IBU as needed Active KlonoPIN 1 MG Tablet 1 tablet Orally twice a day Active Tylenol as needed Active Estela Active Amoxicillin as needed for dentist appt Active Azelastine-Fluticasone 137-50 MCG/ACT Suspension 1 spray in each nostril Nasally Twice a day Active Cyclobenzaprine HCl 5 MG Tablet 1 tablet as needed Orally Once a day Active Flonase Active Calcium + D3 250-3 MG-MCG Tablet 1 tablet Orally Once a day Active Social History 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 denies use of alcohol denies use of other drugs 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 denies use of alcohol denies use of other drugs Problems Problem Type SNOMED Code ICD Code Onset Dates Problem Status W/U Status Risk Notes Problem Vitamin B>12< deficiency anaemia (15822296) Vitamin B12 deficiency anemia, unspecified (D51.9) Active confirmed Problem Type II diabetes mellitus without complication (647194110) Type 2 diabetes mellitus without complications (E11.9) Active confirmed Problem Acquired hypothyroidism (112866185) Acquired hypothyroidism (E03.9) Active confirmed Problem Overweight (744330083) Overweight (BMI 25.0-29.9) (E66.3) Active confirmed Problem Abnormal metabolic state due to diabetes mellitus (313037165) Abnormal metabolic state due to diabetes mellitus (E11.9) Active confirmed Vital Signs Heart Rate 91 /min 05/09/2025 Oximetry 98 % 05/09/2025 Blood pressure diastolic 80 mm Hg 05/09/2025 Height 66 in 05/09/2025 Blood pressure systolic 112 mm Hg 05/09/2025 Weight 169.3 lbs 05/09/2025 BMI 27.32 kg/m2 05/09/2025 Encounters Encounter Location Date Provider Diagnosis [facility] [address] [place], [place] 04/26/2025 Andrea Buffalo Overweight (BMI 25.0-29.9) E66.3 ; BMI 27.0-27.9,adult Z68.27 ; Dietary counseling Z71.3 ; Type 2 diabetes mellitus without complications E11.9 ; Depression F32.A and Blood pressure check Z01.[address] [facility] [address] [place] [address] 05/09/2025 Andrea Mike Overweight (BMI 25.0-29.9) E66.3 ; BMI 27.0-27.9,adult Z68.27 ; Dietary counseling Z71.3 ; Type 2 diabetes mellitus without complications E11.9 ; Depression F32.A and Blood pressure check Z01.[address] [facility] [address] [place] [address] 04/26/2025 Andrea Buffalo [facility] [address] [place] [address] 05/09/2025 Andrea Buffalo Overweight (BMI 25.0-29.9) E66.3 [facility] [address] [place] [address] 04/26/2025 Andrea Buffalo [facility] [address] [place] [address] 04/27/2025 Andrea Buffalo [facility] [address] [place] [address] 04/28/2025 Andrea Mike [facility] [address] [place] [address] 04/28/2025 SHRUTHI VALERIO [facility] [address] [place] [address] 04/28/2025 SHRUTHI VALERIO [facility] [address] [place] [address] 05/01/2025 Andrea Mike [facility] [address] [place] [address] 05/09/2025 SHRUTHI VALERIO [facility] [address] [place] [address] 05/09/2025 Andrea Mike [facility] [address] [place] [address] 05/10/2025 Andrea Buffalo [facility] [address] [place] [address] 05/10/2025 Andrea Mike [facility] [address] [place] [address] 05/10/2025 Andrea Buffalo [facility] [address] [place] [address] 05/10/2025 SHRUTHI VALERIO Assessments Encounter Date Diagnosis (ICD Code) Assessment [...] Consider using apps like 7 minute excercise, Loop88pal, lose it, stick as needed for self-monitoring [...] counseling and psychiatry and Dr Kumar at [facility]. We would like to cover regular topics [...] Dictation was accomplished with the use of Anaqua voice recognition software, prone to medical misidentifications [...] Consider using apps like 7 minute excercise, Loop88pal, lose it, stick as needed for self-monitoring [...] counseling and psychiatry and Dr Kumar at [facility]. We would like to cover regular topics [...] Dictation was accomplished with the use of Anaqua voice recognition software, prone to medical misidentifications and grammatical errors. This is unintentional and the practitioner does try to identify and correct these, but some could still be present. Please do not hesitate to contact practitioner for clarification. All questions answered to patients satisfaction. Patient verbalized understanding of diagnosis and treatments explained. To call sooner prior to next visit it any questions/concerns arise. 05/09/2025 Overweight (BMI 25.0-29.9) (ICD-10 - E66.3) 05/09/2025: Obesity (BMI 27.32, weight 169.3 pounds): Patient weight has not changed much since I only saw her 2 weeks ago. She is working on lifestyle changes. I will send in ScoreGrid as I believe she is a good candidate however I want her to speak with her psychiatrist about whether or not this medication is warranted in her considering possible side effect of mood changes. 04/26/2025: Obesity, BMI 27.24, weight 168.8 LBS), with a weight trend increasing despite 6+ months of diet and exercise changes. Contributing factors include lack of functional mobility [...] unaware. Patient goal is 140 pounds. As she had side effects in the [...] any medication contraindications given her extensive history. All questions answered to patients satisfaction. Patient verbalized understanding of diagnosis and treatments explained. To call sooner prior to next visit it any questions/concerns arise. Case discussed with collaborating physician Joel Valerio who reviewed the assessment and plan. Chart, medications, labs, vital signs reviewed. Dictation was accomplished with the use of Anaqua voice recognition software, prone to medical misidentifications and grammatical errors. This is unintentional and the practitioner does try to identify and correct these, but some could still be present. Please do not hesitate to contact practitioner for clarification. 04/26/2025 Dietary counseling (ICD-10 - Z71.3) 04/26/2025: [...] counseling and psychiatry and Dr Kumar at [facility]. We would like to cover regular topics [...] Dictation was accomplished with the use of Anaqua voice recognition software, prone to medical misidentifications and grammatical errors. This is unintentional and the practitioner does try to identify and correct these, but some could still be present. Please do not hesitate to contact practitioner for clarification. All questions answered to patients satisfaction. Patient verbalized understanding of diagnosis and treatments explained. To call sooner prior to next visit it any questions/concerns arise. 05/09/2025 BMI 27.0-27.9,adult (ICD-10 - Z68.27) 05/09/2025: Obesity (BMI 27.32, weight 169.3 pounds): Patient weight has not changed much since I only saw her 2 weeks ago. She is working on lifestyle changes. I will send in Wegovy as I believe she is a good candidate however I want her to speak with her psychiatrist about whether or not this medication is warranted in her considering possible side effect of mood changes. 04/26/2025: Obesity, BMI 27.24, weight 168.8 LBS), with a weight trend increasing despite 6+ months of diet and exercise changes. Contributing factors include lack of functional mobility [...] unaware. Patient goal is 140 pounds. As she had side effects in the [...] any medication contraindications given her extensive history. All questions answered to patients satisfaction. Patient verbalized understanding of diagnosis and treatments explained. To call sooner prior to next visit it any questions/concerns arise. Case discussed with collaborating physician Joel Valerio who reviewed the assessment and plan. Chart, medications, labs, vital signs reviewed. Dictation was accomplished with the use of Anaqua voice recognition software, prone to medical misidentifications and grammatical errors. This is unintentional and the practitioner does try to identify and correct these, but some could still be present. Please do not hesitate to contact practitioner for clarification. 05/09/2025 Overweight (BMI 25.0-29.9) (ICD-10 - E66.3) Electronic Prior Authorization was requested for Wegovy 0.25 MG/0.5ML Solution Auto-injector. Provider can order medication once approval received. 04/26/2025 Type 2 diabetes mellitus without complications [...] Consider using apps like 7 minute excercise, myfitVitrinepixpal, lose it, stick as needed for self-monitoring [...] counseling and psychiatry and Dr Kumar at [facility]. We would like to cover regular topics [...] Dictation was accomplished with the use of Anaqua voice recognition software, prone to medical misidentifications and grammatical errors. This is unintentional and the practitioner does try to identify and correct these, but some could still be present. Please do not hesitate to contact practitioner for clarification. All questions answered to patients satisfaction. Patient verbalized understanding of diagnosis and treatments explained. To call sooner prior to next visit it any questions/concerns arise. 05/09/2025 Dietary counseling (ICD-10 - Z71.3) 05/09/2025: Obesity (BMI 27.32, weight 169.3 pounds): Patient weight has not changed much since I only saw her 2 weeks ago. She is working on lifestyle changes. I will send in Wegovy as I believe she is a good candidate however I want her to speak with her psychiatrist about whether or not this medication is warranted in her considering possible side effect of mood changes. 04/26/2025: Obesity, BMI 27.24, weight 168.8 LBS), with a weight trend increasing despite 6+ months of diet and exercise changes. Contributing factors include lack of functional mobility due to extensive lower extremity injuries. Patient has been trying to eat much healthier over the past few years but has noticed she has gained weight even despite. She has had an experience with WeOutTrippiny for which she discontinued for fear of medullary endocrine neoplasia and thyroid cancer. She has no history or family history and we spoke about her low risk for which she was unaware. Patient goal is 140 pounds. As she had side effects in the [...] any medication contraindications given her extensive history. All questions answered to patients satisfaction. Patient verbalized understanding of diagnosis and treatments explained. To call sooner prior to next visit it any questions/concerns arise. Case discussed with collaborating physician Joel Valerio who reviewed the assessment and plan. Chart, medications, labs, vital signs reviewed. Dictation was accomplished with the use of Anaqua voice recognition software, prone to medical misidentifications and grammatical errors. This is unintentional and the practitioner does try to identify and correct these, but some could still be present. Please do not hesitate to contact practitioner for clarification. 04/26/2025 Depression (ICD-10 - F32.A) 04/26/2025: Obesity, [...] Consider using apps like 7 minute excercise, Loop88pal, lose it, stick as needed for self-monitoring [...] counseling and psychiatry and Dr Kumar at [facility]. We would like to cover regular topics [...] Dictation was accomplished with the use of Anaqua voice recognition software, prone to medical misidentifications and grammatical errors. This is unintentional and the practitioner does try to identify and correct these, but some could still be present. Please do not hesitate to contact practitioner for clarification. All questions answered to patients satisfaction. Patient verbalized understanding of diagnosis and treatments explained. To call sooner prior to next visit it any questions/concerns arise. 05/09/2025 Type 2 diabetes mellitus without complications (ICD-10 - E11.9) 05/09/2025: Obesity (BMI 27.32, weight 169.3 pounds): Patient weight has not changed much since I only saw her 2 weeks ago. She is working on lifestyle changes. I will send in ScoreGrid as I believe she is a good candidate however I want her to speak with her psychiatrist about whether or not this medication is warranted in her considering possible side effect of mood changes. 04/26/2025: Obesity, BMI 27.24, weight 168.8 LBS), with a weight trend increasing despite 6+ months of diet and exercise changes. Contributing factors include lack of functional mobility [...] unaware. Patient goal is 140 pounds. As she had side effects in the [...] any medication contraindications given her extensive history. All questions answered to patients satisfaction. Patient verbalized understanding of diagnosis and treatments explained. To call sooner prior to next visit it any questions/concerns arise. Case discussed with collaborating physician Joel Valerio who reviewed the assessment and plan. Chart, medications, labs, vital signs reviewed. Dictation was accomplished with the use of Anaqua voice recognition software, prone to medical misidentifications and grammatical errors. This is unintentional and the practitioner does try to identify and correct these, but some could still be present. Please do not hesitate to contact practitioner for clarification. 04/26/2025 Blood pressure check (ICD-10 - Z01.30) [...] counseling and psychiatry and Dr Kumar at [facility]. We would like to cover regular topics [...] Dictation was accomplished with the use of Anaqua voice recognition software, prone to medical misidentifications and grammatical errors. This is unintentional and the practitioner does try to identify and correct these, but some could still be present. Please do not hesitate to contact practitioner for clarification. All questions answered to patients satisfaction. Patient verbalized understanding of diagnosis and treatments explained. To call sooner prior to next visit it any questions/concerns arise. 05/09/2025 Depression (ICD-10 - F32.A) 05/09/2025: Obesity (BMI 27.32, weight 169.3 pounds): Patient weight has not changed much since I only saw her 2 weeks ago. She is working on lifestyle changes. I will send in WegovPathful as I believe she is a good candidate however I want her to speak with her psychiatrist about whether or not this medication is warranted in her considering possible side effect of mood changes. 04/26/2025: Obesity, BMI 27.24, weight 168.8 LBS), with a weight trend increasing despite 6+ months of diet and exercise changes. Contributing factors include lack of functional mobility [...] unaware. Patient goal is 140 pounds. As she had side effects in the [...] any medication contraindications given her extensive history. All questions answered to patients satisfaction. Patient verbalized understanding of diagnosis and treatments explained. To call sooner prior to next visit it any questions/concerns arise. Case discussed with collaborating physician Joel Valeiro who reviewed the assessment and plan. Chart, medications, labs, vital signs reviewed. Dictation was accomplished with the use of Anaqua voice recognition software, prone to medical misidentifications and grammatical errors. This is unintentional and the practitioner does try to identify and correct these, but some could still be present. Please do not hesitate to contact practitioner for clarification. 05/09/2025 Blood pressure check (ICD-10 - Z01.30) 05/09/2025: Obesity (BMI 27.32, weight 169.3 pounds): Patient weight has not changed much since I only saw her 2 weeks ago. She is working on lifestyle changes. I will send in ScoreGrid as I believe she is a good candidate however I want her to speak with her psychiatrist about whether or not this medication is warranted in her considering possible side effect of mood changes. 04/26/2025: Obesity, BMI 27.24, weight 168.8 LBS), with a weight trend increasing despite 6+ months of diet and exercise changes. Contributing factors include lack of functional mobility [...] unaware. Patient goal is 140 pounds. As she had side effects in the [...] any medication contraindications given her extensive history. All questions answered to patients satisfaction. Patient verbalized understanding of diagnosis and treatments explained. To call sooner prior to next visit it any questions/concerns arise. Case discussed with collaborating physician Joel Valerio who reviewed the assessment and plan. Chart, medications, labs, vital signs reviewed. Dictation was accomplished with the use of Anaqua voice recognition software, prone to medical misidentifications and grammatical errors. This is unintentional and the practitioner does try to identify and correct these, but some could still be present. Please do not hesitate to contact practitioner for clarification. Plan Of Treatment Pending Test Test Name Order Date INSULIN LEVEL 04/26/2025 LIPID PANEL, STANDARD 04/26/2025 COMPREHENSIVE METABOLIC PANEL 04/26/2025 HEMOGLOBIN A1c 04/26/2025 VITAMIN B12 04/26/2025 TSH 04/26/2025 Next Appt Details Provider Name:Andrea Mckeon, 06/13/2025 09:15:00 AM, [address], [place], [address], Insurance Providers Payer Name Payer Address Payer Phone Subscriber Number Group Number Insured Name Patient Relationship to Insured Coverage Start Date Coverage End Date [facility] and [facility] [address] [place] [address] [id number] Oliver Juliana Self - patient is the insured 1 Medical (General) History Medical History History ICD Code weight gain/loss arthritis hearing problems thyroid disease kidney stones depression hemorrhoids liver disease Prediabetes R73.03 Surgical History Surgery Date(Month/Year) tonsils hernia wisdom teeth
--- OUTSIDE RECORDS SUMMARY | 2025-05-23 16:04 | XMS_ITS | Encounter Summary ---
Author Organization [facility] Address [address] [place] [address] [place] [address] Phone Care Team Providers Care Channeler Name Role Phone Pita Greene MD Primary Care Provider [phone] Ty Lilly MD Unavailable [phone] Papito Izagiurre MD Unavailable [phone] Encounter Details Date Type Department Care Team (Late st Contact Info) Description 03/14/2025 Procedure Pass [facility] Ct Scan - [address] [address] Social History Tobacco Use Types Packs/Day Years [...] st Contact Info) Description 12/26/2024 Procedure Pass [facility] [place] [address] [address] 01/08/2026 1:30 PM EDT Appointment [facility] [place] US [address] [place] [address] Papito Izaguirre MD [address] [place] [phone] [email or web address] 01/08/2026 3:00 PM EDT Office Visit [facility] Cardiovascular Medicine [address] [place] [address], 5th Floor, [address] [place] [address] Papito Izaguirre MD [address] [place] [address] [email or web address] documented as of this encounter Visit Diagnoses Not on filedocumented in this encounter Additional Health Concerns Assessment Noted Time PHQ-9 Depression Total Score: 14 022 3:36 PM EST documented as of this encounter Care Teams Channeler Relationship Specialty Start Date End Date Pita Greene MD [address] [place] [address] PCP - General Internal Medicine 01/31/22 Ty Lilly MD [address] [place] [address] Internal Medicine 03/20/22 Papito Izaguirre MD [address] [place] [address] [email or web address] Cardiology 12/04/22 documented as of this encounter Additional Source Comments The information contained in this document represents components of the legal health record. It is not the complete legal health record.[facility]
--- OUTSIDE RECORDS SUMMARY | 2025-05-23 16:04 | XMS_ITS | Clinical Summary ---
Author Organization [facility] [address] [facility] Address [address] [place] [address] Phone Care Team Providers Care Sprayer Leather Name Role Phone Pita Greene MD Primary Care Provider [phone] Social History Tobacco Use Types Packs/Day Years [...] patient's age to complete this topic Insurance [facility] [place] [address] [facility] Care Teams Sprayer Leather Relationship Specialty Start Date End Date Pita Greene MD [address] [place] [address] PCP - General Internal Medicine 09/21/24
--- NOTE | 2025-05-25 14:42 | MHC.AU.HA3 ---
Hearing Instrument Follow-Up- Binaural Date of Visit: 05/23/25 Left Ear: Make, Model, Color, Serial Number: Amanda De Jesus P [id number] SN: [id number] Color: Cuellar District Agent Repair Warranty: 05/13/2026 District Agent Loss and Damage Warranty: USED 03/22/2025 [facility] Service Plan: 02/25/2023, extended to 03/28/2023 per KG Battery Size: 312 Hvac Project Manager/Slim Tube: Power Type of Wax Guard: CeruStop Dispensed By: [facility] Date of Fittin02/25/2023 Follow-Up Summary: Initially came for new impression for remake due to reported issues with ROJAS as noted via phone call on 05/09/2025. Hears popping/crackling noise when eating. Questions space in canal from ROJAS not fitting properly, ROJAS feels like it is moving in ear, too loose. Impression taken, left ear, without incident. After impression, Migel reported she is unsure she wants a remake now, as she does not want [employer] to reuse the innards of the HAs. Migel also did not want send her ROJAS in with the impression to ensure the electronics are replaced, as she recalled many issues with previous remakes that she attributes to the reuse of the innards. Advised we can request electronics be replaced as well but cannot guarantee how they perform a remake and likely will need to send ROJAS as well but will call Phonluis enrique to inquire. Migel opted to leave with her ROJAS, continuing using, as is for now until she hears back with the information from [employer] enrique. Impression in Hold Drawer. If she decides to proceed with remake, she will drop ROJAS off to be sent out with impression. Recommendations: Patient will call if problems persist. Diagnosis Code(s): Primary Diagnosis: H90.42 SNHL Unilateral Left Side, W/Unrestricted Contralateral Hearing Signature: Provider: Rosa Maria Estevez, [facility]
== END 2025-05-23 14:23 | disposition home or self-care (01) ==
LOC: HO.HAP 14:22
PROVIDERS: Visit Provider Internal Medicine
DX: Z13.89 Encounter for screening for other disorder (principal)

== ENCOUNTER 2025-05-30 13:11 | Outpatient (REF) | payer SELFPAY ==
--- OUTSIDE RECORDS SUMMARY | 2025-05-26 23:59 | XMS_ITS | Continuity of Care Document ---
Author Organization [facility] Address [address] [place] [address]- Care Team Providers Care Tool Adjuster Name Role Phone Pita Greene MD Primary Care Physician [phone] [id number] Date(s): 04/26/25 - 05/26/[address] [facility] [address] [place], [place] [address] Encounter Type: Triage Allergies, Adverse Reactions, Alerts Substance Criticality Severity Reaction Reaction Severity Status erythromycin rash, fever Activ e Vitamin D3 flu like symptoms A ctive sulfamethoxazole rash, fever A ctive sulfa drugs Active Bactrim Active Immunizations Given and Recorded Vaccine Date Status Refusal Reason tetanus-diphtheria toxoids (Td) 1 01/17/25 Given influenza virus vaccine, inactivated 02/28/24 Gerhard rded influenza virus vaccine, inactivated 02/27/23 Gerhard rded influenza virus vaccine, inactivated 04/25/22 Give n influenza virus vaccine, inactivated 03/13/21 Gerhard rded influenza virus vaccine, inactivated 04/07/20 Gerhard rded influenza virus vaccine, inactivated 03/21/19 Gerhard rded influenza virus vaccine, inactivated 2 04/13/18 Re corded influenza virus vaccine, inactivated 3 03/15/17 Gi jerry influenza virus vaccine, inactivated 4 03/29/16 Gi jerry influenza virus vaccine, inactivated 05/09/15 Give n influenza virus vaccine, inactivated 05/04/14 Give n influenza virus vaccine, inactivated 5 04/13/13 Gi jerry [id number] bivalent booster vax 07/15/22 Recorded [id number] bivalent booster vax 05/15/22 Recorded SARS-CoV-2 (COVID-19) mRNA-1273 vaccine 12/28/21 R ecorded SARS-CoV-2 (COVID-19) mRNA-1273 vaccine 06/17/21 R ecorded SARS-CoV-2 (COVID-19) mRNA-1273 vaccine 09/26/20 R ecorded SARS-CoV-2 (COVID-19) mRNA-1273 vaccine 6 08/29/20 Recorded Influenza Virus Vaccine (oldterm) 03/23/19 Recorde d Influenza Virus Vaccine (oldterm) 7 04/20/09 Given Measles/Mumps/Rubella Virus Vaccine 11/29/18 Given Diphtheria/Tet/Pertussis, Acel (oldterm) 05/25/14 Given Fluzone Preservative-Free (oldterm) 03/23/12 Given Fluarix (oldterm) 8 04/17/11 Given FluLaval (oldterm) 9 05/14/10 Given Tetanus Toxoid Vaccine (oldterm) 03/13/04 Given 1Result Comment: [id number] 2Result Comment: [04/22/2018] [facility] 6Result Comment: Given at pt's employer [employer] [[email or web address]] 7Admin Note: GIVEN BY FABRICIO 8Admin Note: [facility] 9Admin Note: [employer] CEDRICK Medications Estela 180 mg oral tablet See Instructions, PRN as needed for allergy symptoms, 1 tablet By Mouth Daily, # 90 tablet, 3 Refills, Maintenance, 10/16/09 12:25:17 PM EDT Start Date: 10/16/09 Status: Ordered Medication Dispense Status: Completed Quantity: 90.0 Unit: tablet Total Allowed Fills: 4 Fills Dispensed: 0 Estela Hives 24 Hour 180 mg oral tablet 1 tablet = 180 mg, By Mouth, Daily, 0 Refills, Maintenance, 09/27/24 11:07:00 AM EDT, Partial fill upon patient request if the prescription is for a schedule II opioid drug. Start Date: 09/27/24 Status: Ordered Medication Dispense Status: Completed Total Allowed Fills: 1 Fills Dispensed: 0 amoxicillin 500 mg oral capsule 4 capsule = 2,000 mg, By Mouth, Once, TAKE 4 CAPSULES BY MOUTH 1 HOUR PRIOR TO DENTAL PROCEDURES/CLEANINGS, # 4 capsule, 0 Refills, Soft Stop, 12/09/22 9:32:00 AM EDT, [facility]/pharmacy #[id number], 170, cm, 12/09/22 9:01:00 EDT, Height, 75, kg, 01/15/22 10:22:00 EDT, Dry Weight Start Date: 12/09/22 Status: Ordered Medication Dispense Status: Completed Quantity: 4.0 Unit: capsule Total Allowed Fills: 1 Fills Dispensed: 0 aspirin 81 mg oral delayed release tablet See Instructions, 1 tablet By [email or web address] a week Thursday, Thursday and Thursday, Refills 0, Maintenance, 09/27/24 11:08:00 AM EDT, Instructions Replace Required Details, Partial fill upon patient request ifthe prescription is for a schedule II opioid drug. Start Date: 09/27/24 Status: Ordered Medication Dispense Status: Completed Total Allowed Fills: 1 Fills Dispensed: 0 azelastine 137 mcg/inh (0.1%) nasal spray 2 sprays, Nares, Both, 2 times a day, # 3 each, 3 Refills, Maintenance, 08/08/24 2:23:00 PM EST, [facility], 2 sprays Nares, Both 2 times a day, 170, cm, 06/14/24 15:43:00 EST, Height Start Date: 08/08/24 Status: Ordered Medication Dispense Status: Completed Quantity: 3.0 Unit: each Total Allowed Fills: 4 Fills Dispensed: 0 Calcium Citrate By Mouth, 2 times a day, Vitamin D, 0 Refills, Maintenance, 11/29/24 3:08:00 PM EDT, Partial fill upon patient request if the prescription is for a schedule II opioid drug. Start Date: 11/29/24 Status: Ordered Medication Dispense Status: Completed Total Allowed Fills: 1 Fills Dispensed: 0 clonazePAM 1 mg oral tablet 1 tablet = 1 mg, By Mouth, 2 times a day, PRN Anxiety, 0 Refills, Maintenance, 12/09/22 9:33:00 AM EDT, Partial fill upon patient request if the prescription is for a schedule II opioid drug. Start Date: 12/09/22 Status: Ordered Medication Dispense Status: Completed Total Allowed Fills: 1 Fills Dispensed: 0 diclofenac 1% topical gel 2.25 inches, Topically, 4 times a day, use dosing card to measure a dose, # 100 Gm, 0 Refills, Maintenance, 02/08/25 9:05:00 AM EDT, Gel, [facility]/pharmacy #[id number], Partial fill upon patient request if the prescription is for a schedule II opioid drug., 168.5, cm, 01/17/25 12:37:00 EDT, Height, 79, kg, 01/17/25 12:37:00 EDT, Dry Weight Start Date: 02/08/25 Status: Ordered Medication Dispense Status: Completed Quantity: 100.0 Unit: g Total Allowed Fills: 1 Fills Dispensed: 0 fluticasone 50 mcg/inh nasal spray See Instructions, USE 2 SPRAYS IN EACH NOSTRIL DAILY, # 48 Gm, 3 Refills, Maintenance, 08/08/24 2:23:00 PM EST, [facility], 90, USE 2 SPRAYS IN EACH NOSTRIL DAILY, 170, cm, 06/14/24 15:43:00 EST, Height Start Date: 08/08/24 Status: Ordered Medication Dispense Status: Completed Quantity: 48.0 Unit: g Total Allowed Fills: 4 Fills Dispensed: 0 hydrocortisone 2.5% topical cream 1 application, Topically, 3 times a day, # 30 Gm, 0 Refills, Maintenance, 01/05/25 3:39:00 PM EDT, Cream, [facility]/pharmacy #[id number], Partial fill upon patient request if the prescription is for a schedule IIopioid drug., 1 application Topically 3 times a day, 168.5, cm, 12/12/24 14:51:00 EDT, Height, 79.5, kg, 12/12/24 14:51:00 EDT, Dry Weight Start Date: 01/05/25 Status: Ordered Medication Dispense Status: Completed Quantity: 30.0 Unit: g Total Allowed Fills: 1 Fills Dispensed: 0 hydrocortisone 2.5% topical cream 1 application, Topically, 2 times a day, X7 DAYS., # 90 Gm, 3 Refills, Maintenance, 03/03/24 3:32:00PM EDT, [facility], 1 application Topically 2 times a day,x90 days,Instr:X7 DAYS., 170, cm, 02/25/24 11:32:00 EDT, Height Start Date: 03/03/24 Stop Date: 02/26/25 Status: Ordered Medication Dispense Status: Completed Quantity: 90.0 Unit: g Total Allowed Fills: 4 Fills Dispensed: 0 ibuprofen 200 mg oral tablet 200 mg, 1, tablet, By Mouth, Every 6 hours, PRN, Refills 0, Maintenance, 09/27/24 11:10:00 AM EDT, Partial fill upon patient request if the prescription is for a schedule II opioid drug. Start Date: 09/27/24 Status: Ordered Medication Dispense Status: Completed Total Allowed Fills: 1 Fills Dispensed: 0 lamotrigine 150 mg oral tablet TAKE 1 TABLET DAILY Start Date: 11/29/24 Status: Ordered Medication Dispense Status: Completed Total Allowed Fills: 1 Fills Dispensed: 0 raloxifene 60 mg oral tablet 1 tablet = 60 mg, By Mouth, Daily, # 30 tablet, 0 Refills, Maintenance, 12/11/21 9:14:00 AM EDT, Tablet, Partial fill upon patient request if the prescription is for a schedule II opioid drug. Start Date: 12/11/21 Status: Ordered Medication Dispense Status: Completed Quantity: 30.0 Unit: tablet Total Allowed Fills: 1 Fills Dispensed: 0 Tylenol 325 mg oral tablet 325 mg, 1, tablet, By Mouth, 2 times a day, PRN, Refills 0, Maintenance, 09/27/24 11:10:00 AM EDT, Partial fill upon patient request if the prescription is for a schedule II opioid drug. Start Date: 09/27/24 Status: Ordered Medication Dispense Status: Completed Total Allowed Fills: 1 Fills Dispensed: 0 Wellbutrin XL 150 mg/24 hours oral tablet, extended release 1 tablet = 150 mg, By Mouth, Daily at bedtime, # 30 tablet, 0 Refills, Maintenance, 11/26/10 11:34:34 AM EDT, ER Tablet Start Date: 11/26/10 Status: Ordered Medication Dispense Status: Completed Quantity: 30.0 Unit: tablet Total Allowed Fills: 1 Fills Dispensed: 0 Problem List Condition Confirmation Course Effective Dates Status Health Status Informant Adult ADHD Confirmed Active Internal and external bleeding hemorrhoids Confirmed Active Chronic constipation Confirmed Active Generalized anxiety disorder Confirmed 09/18/09 Active Left ear hearing loss Confirmed Active Mitral valve replaced Confirmed Active Status post mitral valve annuloplasty Confirmed Active Hypercalciuria Confirmed Active Hypercholesterolemia Confirmed Active Hyperglycemia Confirmed Active Hyperparathyroidism Confirmed Active Kidney stone Confirmed Active Menopause Confirmed 06/04/07 Active Microscopic hematuria seen by Dr Blackman Confirmed Active Mitral regurgitation Confirmed Active Meniere's disease Confirmed 11/07/08 Active Osteoarthritis -multiple joint Confirmed Active Osteopenia Confirmed Active Post-traumatic stress disorder Confirmed Active Seasonal allergic rhinitis Confirmed Active Seasonal mood disorder Confirmed Active Thyroid nodule Confirmed Active Social History Social History Type Response Smoking Status Never smoker entered on: 09/24/15 Sexual Orientation Self described orien tation: ; Straight or heterosexual Sex Sex Representation Female (finding) Patient Care team information Care Team Personnel Name: Pita Greene MD Position: [facility] Physician - Primary Care Member Role: PCP Address: [address] [place] [address] Adult and Pediatric Medicine [address] Telecom: Care Team Related Persons Name: ROBERTO PANCHAL Insurance Providers Guarantor name: AGUSTÍN [facility] Plan Information #: 1 Payer[facility] Payer Identifier: RENETTA Member Number: [id number] Group Number: [id number] Subscriber Identifier: RENETTA Relationship to Subscriber: spouse Coverage Type: NA Coverage Verification Date: NA Telecom: NA Address:
--- OUTSIDE RECORDS SUMMARY | 2025-05-28 23:59 | XMS_ITS | Continuity of Care Document ---
Author Organization [facility] Address [address] [place] [address]- Care Team Providers Care Painting Contractor Name Role Phone Pita Greene MD Primary Care Physician [id number] Date(s): 04/28/25 - 05/28/25 [facility] [address] [place], [place] [address] Encounter Type: Triage Allergies, Adverse Reactions, Alerts [...] virus vaccine, inactivated 5 04/13/13 Gi jerry [id number] bivalent booster vax 07/15/22 Recorded [id number] bivalent booster vax 05/15/22 Recorded SARS-CoV-2 (COVID-19) [...] Toxoid Vaccine (oldterm) 03/13/04 Given 1Result Comment: [id number] 2Result Comment: [04/22/2018] [facility] 3[facility] 4[facility] 6Result Comment: Given at pt's employer [employer] [facility] 7Admin Note: GIVEN BY FABRICIO 8Admin Note: [...] Refills, Soft Stop, 12/09/22 9:32:00 AM EDT, [facility]/pharmacy #[id number], 170, cm, 12/09/22 9:01:00 EDT, Height, 75, kg, 01/15/22 10:22:00 EDT, Dry Weight Start Date: 12/09/22 Status: Ordered Medication Dispense Status: Completed Quantity: 4.0 Unit: capsule Total Allowed Fills: 1 Fills Dispensed: 0 aspirin 81 mg oral delayed release tablet See Instructions, 1 tablet By [email or web address] a week Thursday, Thursday and Thursday, Refills [...] 3 Refills, Maintenance, 08/08/24 2:23:00 PM EST, [facility], 2 sprays Nares, Both 2 times [...] Refills, Maintenance, 02/08/25 9:05:00 AM EDT, Gel, [facility]/pharmacy #[id number], Partial fill upon patient request if [...] 3 Refills, Maintenance, 08/08/24 2:23:00 PM EST, [facility], 90, USE 2 SPRAYS IN EACH NOSTRIL DAILY, 170, cm, 06/14/24 15:43:00 EST, Height Start Date: 08/08/24 Status: Ordered Medication Dispense Status: Completed Quantity: 48.0 Unit: g Total Allowed Fills: 4 Fills Dispensed: 0 hydrocortisone 2.5% topical cream 1 application, Topically, 3 times a day, # 30 Gm, 0 Refills, Maintenance, 01/05/25 3:39:00 PM EDT, Cream, [facility]/pharmacy #[id number], Partial fill upon patient request if [...] Gm, 3 Refills, Maintenance, 03/03/24 3:32:00PM EDT, [facility], 1 application Topically 2 times a [...] Team Personnel Name: Pita Greene MD Position: [facility] Physician - Primary Care Member Role: PCP Address: [address] [place] [address] Adult and Pediatric Medicine [address] Telecom: Care Team Related Persons Name: ROBERTO PANCHAL Insurance Providers Guarantor name: AGUSTÍN [facility] Plan Information #: 1 [facility] Payer Identifier: RENETTA Member Number: [id number] Group Number: [id number] Subscriber Identifier: RENETTA Relationship to Subscriber: spouse Coverage Type: NA Coverage Verification Date: NA Telecom: NA Address:
--- OUTSIDE RECORDS SUMMARY | 2025-05-31 05:27 | XMS_ITS | Encounter Summary ---
Author Organization [facility] Address [address] [place] [address] Phone Care Team Providers Care Caramel Candy Maker Name Role Phone Ty Lilly MD Primary Care Provider [phone] Pita Greene MD Primary Care Provider [phone] Ty Lilly MD Unavailable [phone] Papito Izaguirre MD Unavailable [phone] Encounter Details Date Type Department Care Team (Late st Contact Info) Description 03/08/2018 Ancillary Orders [facility], X-Ray - [address] [place] [address] [place] [address] [place] [address] Midline thoracic back pain, unspecified chronicity Social [...] [facility] Card[facility] US [address] [place] [address] 01/08/2026 1:30 PM EDT Appointment [facility] Cardiac US [address] [place] [address] Papito Izaguirre MD [address] [place] [address] [email or web address] 01/08/2026 3:00 PM EDT Office Visit [facility] Cardiovascular Medicine [address] [facility], 5th Floor, [address] [place] [address] Papito Izaguirre MD [address] [place] [address] [email or web address] documented as of this encounter Results * XR THORACIC SPINE 3 VIEW (03/08/2018 3:57 PM EDT) Anatomical Region Laterality Modality T-spine Radiographic Juliet ging 03/08/2018 4:16 PM EDT Impressions 03/08/2018 4:18 PM EDT Osteopenia and mild scoliosis. POS - [id number] Narrative 03/08/2018 4:18 PM EDT HISTORY: As [...] IMPRESSION: Osteopenia and mild scoliosis. POS - [id number] Leif Flannery Darwin DC IMG XR SPINE Final Result documented in this encounter Visit Diagnoses Diagnosis Midline thoracic back pain, unspecified chronicity Midline thoracic back pain, unspecified chronicity documented in this encounter Additional Health Concerns Infection Onset Date Last Indicated Resolved Time CoV-Risk 09/10/2023 09/10/2023 09/10/2023 3:10 PM EST COVID-19 09/10/2023 09/10/2023 10/01/2023 1:23 AM EDT documented as of this encounter Care Teams Caramel Candy Maker Relationship Specialty Start Date End Date Ty Lilly MD PCP - General Internal Medicine 03/08/18 01/30/22 Pita Greene MD [address] [place] [address] PCP - General Internal Medicine 01/31/22 Ty Lilly MD Internal Medicine 03/20/22 Papito Izaguirre MD [address] [place] [address] [email or web address] Cardiology 12/04/22 documented as of this encounter Additional Source Comments The information contained in this document represents components of the legal health record. It is not the complete legal health record.[facility]
--- OUTSIDE RECORDS SUMMARY | 2025-05-31 05:29 | XMS_ITS | Encounter Summary ---
Author Organization [facility] Address [address] [place] [address] [place] [address] Phone Care Team Providers Care Used Car Manager Name Role Phone Pita Greene MD Primary Care Provider [phone] Ty Lilly MD Unavailable [phone] Papito Izaguirre MD Unavailable Encounter Details Date Type Department Care Team (Late st Contact Info) Description 04/09/2022 Procedure Pass [facility] Cardiac US [address] [place] [address] Social History Tobacco Use Types Packs/Day Years [...] 04/11/2022 9:00 PM Mimi Hernandez, THAD * [place] Suicide Severity Rating Scale (Screener/Recent Self-Report) Question [facility] [address] [place] [address] 01/08/2026 1:30 PM EDT Appointment [facility] Cardiac US [address] [place] [address] Papito Izaguirre MD [address] [place] [address] [email or web address] 01/08/2026 3:00 PM EDT Office Visit [facility] Cardiovascular Medicine [address] [facility], 5th Floor, [address] [place] [address] Papito Izaguirre MD [address] [place] [address] [email or web address] documented as of this encounter Visit Diagnoses Not on filedocumented in this encounter Additional Health Concerns Infection Onset Date Last Indicated Resolved Time CoV-Risk 09/10/2023 09/10/2023 09/10/2023 3:10 PM EST COVID-19 09/10/2023 09/10/2023 10/01/2023 1:23 AM EDT documented as of this encounter Care Teams Used Car Manager Relationship Specialty Start Date End Date Pita Greene MD [address] [place] [phone] PCP - General Internal Medicine 01/31/22 Ty Lilly MD [address] [place] [address] Internal Medicine 03/20/22 Papito Izaguirre MD [address] [place] [phone] [email or web address] [facility] Cardiology 12/04/22 documented as of this encounter Additional Source Comments The information contained in this document represents components of the legal health record. It is not the complete legal health record.[facility]
--- OUTSIDE RECORDS SUMMARY | 2025-05-31 05:30 | XMS_ITS | Encounter Summary ---
Author Organization [facility] Address [address] [place] [address] Phone Care Team Providers Care Senior Linux Unix Administrator Name Role Phone Pita Greene MD Primary Care Provider [phone] Ty Lilly MD Unavailable [phone] Papito Izaguirre MD Unavailable [phone] Encounter Details Date Type Department Care Team (Late st Contact Info) Description 02/27/2022 Procedure Pass [facility] PERIOPERATIVE DEPT [address] [place] [id number] Social History Tobacco Use Types Packs/Day Years [...] st Contact Info) Description 12/26/2024 Procedure Pass [facility] Cardiac US [address] [place] [address] 01/08/2026 1:30 PM EDT Appointment [facility] Cardiac US [address] [place] [address] Papito Izaguirre MD [address] [address] ALEXANDER@[email or web address] 01/08/2026 3:00 PM EDT Office Visit [facility] Cardiovascular Medicine [address] [facility], 5th Floor, [address] [place] [address] Papito Izaguirre MD [address] [place] [address] ALEXANDER@[email or web address] documented as of this encounter Visit Diagnoses Not on filedocumented in this encounter Additional Health Concerns Infection Onset Date Last Indicated Resolved Time CoV-Risk 09/10/2023 09/10/2023 09/10/2023 3:10 PM EST COVID-19 09/10/2023 09/10/2023 10/01/2023 1:23 AM EDT documented as of this encounter Care Teams Senior Linux Unix Administrator Relationship Specialty Start Date End Date Pita Greene MD [address] [place] [address] PCP - General Internal Medicine 01/31/22 Ty Lilly MD [address] [place] [address] Internal Medicine 03/20/22 Papito Izaguirre MD [address] [place] [address] ALEXANDER@[email or web address] Cardiology 12/04/22 documented as of this encounter Additional Source Comments The information contained in this document represents components of the legal health record. It is not the complete legal health record.[facility]
--- OUTSIDE RECORDS SUMMARY | 2025-05-31 05:30 | XMS_ITS | Encounter Summary ---
Author Organization [facility] Address [address] [facility] [address] [place] [address] Phone Care Team Providers Care Foreign Diplomat Name Role Phone Pita Greene MD Primary Care Provider [phone] Ty Lilly MD Unavailable [phone] Papito Izaguirre MD Unavailable [phone] Reason for Referral * MRI/CAT Scan (Emergency) - Closed Specialty Diagnoses / Procedures Referred By Leatha jose Referred To Contact Radiology Diagnoses Preop cardiovascular exam Procedures CT Cardiac CT Angio Coronary Arteries CHG CT ANGIO HRT CORNRY ART/BYPASS GRFTS CONTRST 3D POST CHG CT HEART CONTRAST EVAL CARDIAC STRUCT/MORPH Anca Rice FNP Phone: tel: fax: mailto:[email or web address].[address] [address] Phone: tel: Referral ID Status Reason Start Date Expiration Date Visits Re quested Visits Authorized [id number] Closed 02/03/2022 03/05/2022 1 1 Encounter Details Date Type Department Care Team (Latest Contact Info) Description 02/03/2022 Ancillary Orders [facility] Division of Cardiac Surgery [address] [place] [address], 6th Floor, [address] [place] [address] Anca Rice FNP [address] [facility] [place] [address] [place] [address] [email or web address] Preop cardiovascular exam Social History Tobacco [...] Upcoming Encounters Date Type Department Care Team ([facility] st Contact Info) Description 12/26/2024 Procedure Pass [facility] Cardiac US [address] [place] [address] 01/08/2026 1:30 PM EDT Appointment [facility] Cardiac US [address] [place] [address] Papito Izaguirre MD [address] [place] [address] ALEXANDER@[email or web address] 01/08/2026 3:00 PM EDT Office Visit [facility] Cardiovascular Medicine [address] [place] [address], 5th Floor, [address] [place] [address] Papito Izaguirre MD [address] [place] [address] ALEXANDER@[email or web address] documented as of this encounter Results * [...] pericardial effusion. No bypass grafts are identified. EGEGIK CORONARY ARTERIES: There is no evidence for [...] AND FUNCTION: The left atrium is enlarged [id number] mm in AP diameter. Right atrial enlargement. There are no thrombi inthe left ventricle. There are no regional wall motion abnormalities. No evidence of pericardial effusion. No bypass grafts are identified. EGEGIK CORONARY ARTERIES: There is no evidence for [...] documented as of this encounter Care Teams Foreign Diplomat Relationship Specialty Start Date End Date Pita Greene MD [address] [place] [address] PCP - General Internal Medicine 01/31/22 Ty Lilly MD [address] [place] [address] Internal Medicine 03/20/22 Papito Izaguirre MD [address] [place] [address] ALEXANDER@[email or web address] Cardiology 12/04/22 documented as of this encounter Additional Source Comments The information contained in this document represents components of the legal health record. It is not the complete legal health record.[facility]
--- OUTSIDE RECORDS SUMMARY | 2025-05-31 05:30 | XMS_ITS | Encounter Summary ---
Author Organization [facility] Address [address] [place] [address] Phone Care Team Providers Care Topology Professor Name Role Phone Pita Greene MD Primary Care Provider [phone] Ty Lilly MD Unavailable [phone] Papito Izaguirre MD Unavailable [phone] Encounter Details Date Type Department Care Team (Late st Contact Info) Description 05/15/2022 Procedure Pass [facility] Cardiac US [address] [place] [address] Social History Tobacco Use Types Packs/Day Years [...] Pass [facility] Cardiac US [address] [place] [address] 01/08/2026 1:30 PM EDT Appointment [facility] Cardiac US [address] [place] [address] Papito Izaguirre MD [address] [address] ALEXANDER@[email or web address] 01/08/2026 3:00 PM EDT Office Visit [facility] Cardiovascular Medicine 32 [facility], 5th Floor, [address] [place] [address] Papito Izaguirre MD [address] [place] [address] ALEXANDER@[email or web address] documented as of this encounter Visit Diagnoses Not on filedocumented in this encounter Additional Health Concerns Infection Onset Date Last Indicated Resolved Time CoV-Risk 09/10/2023 09/10/2023 09/10/2023 3:10 PM EST COVID-19 09/10/2023 09/10/2023 10/01/2023 1:23 AM EDT Assessment Noted Time PHQ-9 Depression Total Score: 14 022 3:36 PM EST documented as of this encounter Care Teams Topology Professor Relationship Specialty Start Date End Date Pita Greene MD [address] [place] [address] PCP - General Internal Medicine 01/31/22 Ty Lilly MD [address] [place] [address] Internal Medicine 03/20/22 Papito Izaguirre MD [address] [place] [address] ALEXANDER@[email or web address] Cardiology 12/04/22 documented as of this encounter Additional Source Comments The information contained in this document represents components of the legal health record. It is not the complete legal health record.[facility]
--- OUTSIDE RECORDS SUMMARY | 2025-05-31 05:30 | XMS_ITS | Encounter Summary ---
Author Organization [facility] Address [address] [place] [address] [place] [address] Phone Care Team Providers Care Reinforced Ironworker Name Role Phone Pita Greene MD Primary Care Provider [phone] Ty Lilly MD Unavailable [phone] Papito Izaguirre MD Unavailable [phone] Encounter Details Date Type Department Care Team (Late st Contact Info) Description 04/09/2022 Procedure Pass [facility] PER[facility] [address] [place] [address] Social History Tobacco Use Types Packs/Day Years [...] 9:00 PM EDT Mimi Aaron RN * [place] Suicide Severity Rating Scale (Screener/Recent Self-Report) Question [...] Info) Description 12/26/2024 Procedure Pass [facility] Cardiac US [address] [place] [address] 01/08/2026 1:30 PM EDT Appointment [facility] Cardiac US [address] [place] [address] Papito Izaguirre MD [address] [place] [address] ALEXANDER@[facility] 01/08/2026 3:00 PM EDT Office Visit [facility] Cardiovascular Medicine 32 [facility], 5th Floor, [address] [place] [address] Papito Izaguirre MD [address] [place] [address] ALEXANDER@[email or web address] documented as of this encounter Visit Diagnoses Not on filedocumented in this encounter Additional Health Concerns Infection Onset Date Last Indicated Resolved Time CoV-Risk 09/10/2023 09/10/2023 09/10/2023 3:10 PM EST COVID-19 09/10/2023 09/10/2023 10/01/2023 1:23 AM EDT documented as of this encounter Care Teams Reinforced Ironworker Relationship Specialty Start Date End Date Pita Greene MD [address] [place] [address] PCP - General Internal Medicine 01/31/22 Ty Lilly MD [address] [place] [address] Internal Medicine 03/20/22 Papito Izaguirre MD [address] [place] [address] ALEXANDER@[email or web address] Cardiology 12/04/22 documented as of this encounter Additional Source Comments The information contained in this document represents components of the legal health record. It is not the complete legal health record.[facility]
--- OUTSIDE RECORDS SUMMARY | 2025-05-31 05:31 | XMS_ITS | Encounter Summary ---
Author Organization [facility] Address [address] [place] [address] [place] [address] Phone Care Team Providers Care Mud Grinder Name Role Phone Pita Greene MD Primary Care Provider [phone] Ty Lilly MD Unavailable [phone] Papito Izaguirre MD Unavailable [phone] Encounter Details Date Type Department Care Team (Late st Contact Info) Description 05/22/2022 Procedure Pass [facility], [address] [place] [address] Social History Tobacco Use Types Packs/Day Years [...] 05/25/2022 8:27 PM Tomi Liz RN * [place] Suicide Severity Rating Scale (Screener/Recent Self-Report) Question [...] st Contact Info) Description 12/26/2024 Procedure Pass [facility] Cardiac US [address] [place] [address] 01/08/2026 1:30 PM EDT Appointment [facility] Cardiac US [address] [place] [address] Papito Izaguirre MD [address] [place] [address] ALEXANDER@[facility] 01/08/2026 3:00 PM EDT Office Visit [facility] Cardiovascular Medicine [address] [facility], 5th Floor, [address] [place] [address] Papito Izaguirre MD [address] [place] [address] ALEXANDER@[facility] documented as of this encounter Visit Diagnoses Not on filedocumented in this encounter Additional Health Concerns Infection Onset Date Last Indicated Resolved Time CoV-Risk 09/10/2023 09/10/2023 09/10/2023 3:10 PM EST COVID-19 09/10/2023 09/10/2023 10/01/2023 1:23 AM EDT Assessment Noted Time PHQ-9 Depression Total Score: 14 022 3:36 PM EST documented as of this encounter Care Teams Mud Grinder Relationship Specialty Start Date End Date Pita Greene MD [address] [place] [address] PCP - General Internal Medicine 01/31/22 Ty Lilly MD [address] [place] [address] Internal Medicine 03/20/22 Papito Izaguirre MD [address] [place] [address] ALEXANDER@[email or web address] Cardiology 12/04/22 documented as of this encounter Additional Source Comments The information contained in this document represents components of the legal health record. It is not the complete legal health record.[facility]
--- OUTSIDE RECORDS SUMMARY | 2025-05-31 05:31 | XMS_ITS | Encounter Summary ---
Author Organization [facility] Address [address] [place] [address] Phone Care Team Providers Care Deputy County Clerk Name Role Phone Pita Greene MD Primary Care Provider [phone] Ty Lilly MD Unavailable [phone] Papito Izaguirre MD Unavailable [phone] Encounter Details Date Type Department Care Team (Late st Contact Info) Description 07/11/2022 Procedure Pass [facility], Ct Scan - [address] [address] Social History Tobacco Use Types Packs/Day Years [...] Contact Info) Description 12/26/2024 Procedure Pass [facility] Cardiac US [address] [place] [address] 01/08/2026 1:30 PM EDT Appointment [facility] Cardiac US [address] [place] [address] Papito Izaguirre MD [address] [address] ALEXANDER@[facility] 01/08/2026 3:00 PM EDT Office Visit [facility] Cardiovascular Medicine 32 [facility], 5th Floor, [address] [place] [address] Papito Izaguirre MD [address] [place] [address] ALEXANDER@[facility] documented as of this encounter Visit Diagnoses Not on filedocumented in this encounter Additional Health Concerns Infection Onset Date Last Indicated Resolved Time CoV-Risk 09/10/2023 09/10/2023 09/10/2023 3:10 PM EST COVID-19 09/10/2023 09/10/2023 10/01/2023 1:23 AM EDT Assessment Noted Time PHQ-9 Depression Total Score: 14 022 3:36 PM EST documented as of this encounter Care Teams Deputy County Clerk Relationship Specialty Start Date End Date Pita Greene MD [address] [place] [address] PCP - General Internal Medicine 01/31/22 Ty Lilly MD [address] [place] [address] Internal Medicine 03/20/22 Papito Izaguirre MD [address] [place] [address] ALEXANDER@[email or web address] [place] Cardiology 12/04/22 documented as of this encounter Additional Source Comments The information contained in this document represents components of the legal health record. It is not the complete legal health record.[facility]
--- OUTSIDE RECORDS SUMMARY | 2025-05-31 05:31 | XMS_ITS | Clinical Summary ---
Author Organization [facility] Address [address] [place] [address] Phone Care Team Providers Care Coverstitch Elastic Attacher Name Role Phone Pita Greene MD Primary Care Provider Ty Lilly MD Unavailable [phone] Papito Izaguirre MD Unavailable [phone] Allergies Active Allergy Reactions Criticality Noted Date [...] Description 04/12/2025 2:20 PM EDT Office Visit [facility] [address] [place] [address] Daysi Martin, LUIZ Sore throat (Primary Dx) 04/11/2025 4:00 PM EDT Telemedicine [facility] [address] [facility], 2nd Floor, [address] [place] [address] Delia Reyes MD Atelectasis of right lung (Primary Dx) 04/05/2025 7:53 AM EDT - 04/05/2025 11:59 PM EDT Hospital Encounter [facility] Ct Scan [address] [address] Delia Reyes MD Discharge Disposition: Home or Self Care 03/14/2025 Procedure Pass [facility] Ct Scan [address] [address] 03/14/2025 Orders Only [facility] [address] [place] [address], 2nd Floor, [address] [place] [address] Delia Reyes MD Atelectasis of right lung (Primary Dx) 03/06/2025 2:05 PM EDT - 03/06/2025 11:59 PM EDT Hospital Encounter [facility] X-Ray - [address] [address] Delia Reyes MD Discharge Disposition: Home or [...] st Contact Info) Description 12/26/2024 Procedure Pass [facility] Cardiac US [address] [place] [address] 01/08/2026 1:30 PM EDT Appointment [facility] Cardiac US [address] [place] [address] Papito Izaguirre MD [address] [place] [address] ALEXANDER@[email or web address] 01/08/2026 3:00 PM EDT Office Visit [facility] Cardiovascular Medicine 32 [facility], 5th Floor, [address] [place] [address] Papito Izaguirre MD [address] [place] [address] ALEXANDER@[email or web address] Health Maintenance Due Date Last Done Comments [...] this topic Medical Devices Implanted Type Area Second Language Tutor Device Identifier Shelf Expiration Date Model / Serial / Lot Ring Annuloplasty 32mm Mitral Keith Richey Eligoy Band Silicone Rubber Polyester Cover - [id number] Implanted:Qty: 1 on 04/09/2022 by Tess Wilson MD at [facility] N/A: Heart [employer] 05/26/2026 [id number] / [id number] / Procedures Procedure Name Priority Date/Time Associated [...] & B/RSV (Cepheid) (04/12/2025 2:41 PM EDT) [facility] RSV PCR Negative Negative [facility] SARS-CoV-2 (COVID-19) Negative Negative [facility] POC Influenza A PCR Negative Negative [facility] P[facility] Influenza B PCR Negative Negative [facility] 04/12/2025 2:41 PM EDT 04/12/2025 3:19 PM EDT us Daysi Martin TRADE RECRUITER LAB POCT ENTER/EDIT ORDERA BLES Final Result [facility] [address] [phone] * POCT Rapid Strep A (04/12/2025 2:41 PM EDT) [facility] Strep A, PCR Not Detected Not Detected C [facility] 04/12/2025 2:41 PM EDT 04/12/2025 3:06 PM EDT us Daysi Martin TRADE RECRUITER LAB POCT ENTER/EDIT ORDERA BLES Final Result [facility] [address] [address] [phone] * CT CHEST WITH CONTRAST (04/05/2025 8:12 AM EDT) Anatomical Region Laterality Modality Chest Computed Tomogra phy 04/06/2025 10:4 0 AM EDT Impressions 04/06/2025 10:52 AM EDT Right middle lobe consolidation/volume loss, decreased since 07/23/2022, most likely represent atelectasis/scar. No underlying mass or mucous plugging. Narrative 04/06/2025 10:[address] CHEST WITH CONTRAST Referring clinician's provided indication for this examination in [facility]: *Abnormal imaging; Assess right middle lobe which [...] clinician's provided indication for this examination in [facility]:*Abnormal imaging; Assess right middle lobe which appears to have partialatelectasis, look for endobronchial lesions plugging TECHNIQUE: Multidetector CT of the chest was performed with intravenouscontrast using tailored dose modulation techniques. COMPARISON: CT CHEST WITH CONTRAST ; CT ANGIO CHEST WITH ANDWITHOUT CONTRAST ; XR CHEST PA AND LATERAL 2 [id number] FINDINGS: Devices/Tubes/Lines: None. Lungs: Elevated right hemidiaphragm, [...] underlying mass or mucousplugging. Delia Reyes MD [facility] [place] CHEST Final Result * XR CHEST [...] Final Result from Last 3 Months Insurance [facility] [address] [place] [address] [place] [address] [place] [address] [place] [address] [place] [address] [facility] [place] [address] [place] [address] Advance Directives For more information, please contact: [phone] (9AM - 5PM Jenna/[facility], Thursday-Thursday) Documents on File Type Date Recorded Patient Efficiency Manager Expl anation Healthcare Proxy 02/20/2022 1:23 PM * Full Code (Latest Code Status on File) Date Activated Date Inactivated Comments 04/09/2022 9:02 PM Question Answer Comments Code Status Confirmed With: Patient Code Status Communicated To: Inpatient Attending Care Teams Coverstitch Elastic Attacher Relationship Specialty Start Date End Date Pita Greene MD [address] [place] [address] PCP - General Internal Medicine 01/31/22 Ty Lilly MD [address] [place] [address] Internal Medicine 03/20/22 Papito Izaguirre MD [address] [place] [address] ALEXANDER@[email or web address] Cardiology 12/04/22 Additional Source Comments The information contained in this document represents components of the legal health record. It is not the complete legal health record.[facility]
--- OUTSIDE RECORDS SUMMARY | 2025-05-31 05:31 | XMS_ITS | Encounter Summary ---
Author Organization [facility] Address [address] [place] [address] [place] [address] Phone Care Team Providers Care Motorcycle Service Technician Name Role Phone Pita Greene MD Primary Care Provider [phone] Ty Lilly MD Unavailable [phone] Papito Izaguirre MD Unavailable [phone] Encounter Details Date Type Department Care Team (Late st Contact Info) Description 12/24/2024 Procedure Pass [facility], Ct Scan - [address] [address] Social History Tobacco Use Types Packs/Day Years [...] 9:11 AM EDT Keith Conteh RN * [place] Suicide Severity Rating Scale (Screener/Recent Self-Report) Question [...] st Contact Info) Description 12/26/2024 Procedure Pass [facility] Card[facility] US [address] [place] [address] 01/08/2026 1:30 PM EDT Appointment [facility] Cardiac US [address] [place] [address] Papito Izaguirre MD [address] [place] [address] ALEXANDER@[email or web address] [place] 01/08/2026 3:00 PM EDT Office Visit [facility] Cardiovascular Medicine [address] [facility], 5th Floor, [address] [place] [address] Papito Izaguirre MD [address] [place] [address] ALEXANDER@[facility] [place] [place] documented as of this encounter Visit Diagnoses Not on filedocumented in this encounter Additional Health Concerns Assessment Noted Time PHQ-9 Depression Total Score: 14 022 3:36 PM EST documented as of this encounter Care Teams Motorcycle Service Technician Relationship Specialty Start Date End Date Pita Greene MD [address] [place] [address] PCP - General Internal Medicine 01/31/22 Ty Lilly MD [address] [place] [address] Internal Medicine 03/20/22 Papito Izaguirre MD [address] [place] [address] ALEXANDER@[facility] Cardiology 12/04/22 documented as of this encounter Additional Source Comments The information contained in this document represents components of the legal health record. It is not the complete legal health record.[facility]
--- OUTSIDE RECORDS SUMMARY | 2025-05-31 05:31 | XMS_ITS | Encounter Summary ---
Author Organization [facility] Address [address] [place] [address] [place] [address] Phone Care Team Providers Care Rewrite Editor Name Role Phone Ty Lilly MD Primary Care Provider [phone] Pita Greene MD Primary Care Provider [phone] Ty Lilly MD Unavailable [phone] Papito Izaguirre MD Unavailable [phone] Encounter Details Date Type Department Care Team (Late st Contact Info) Description 01/10/2022 Procedure Pass [facility], Andrea [address] [facility], 2nd Floor, [address] [place] [address] Social History Tobacco Use Types Packs/Day Years [...] st Contact Info) Description 12/26/2024 Procedure Pass [facility] [place] US [address] [place] [address] 01/08/2026 1:30 PM EDT Appointment [facility] [place] US [address] [place] [address] Papito Izaguirre MD [address] [place] [address] ALEXANDER@[email or web address] 01/08/2026 3:00 PM EDT Office Visit [facility] [place] Medicine 32 [facility], 5th Floor, [address] [place] [address] Papito Izaguirre MD [address] [place] [address] ALEXANDER@[facility] documented as of this encounter Visit Diagnoses Not on filedocumented in this encounter Additional Health Concerns Infection Onset Date Last Indicated Resolved Time CoV-Risk 09/10/2023 09/10/2023 09/10/2023 3:10 PM EST COVID-19 09/10/2023 09/10/2023 10/01/2023 1:23 AM EDT documented as of this encounter Care Teams Rewrite Editor Relationship Specialty Start Date End Date Ty Lilly MD PCP - General Internal Medicine 03/08/18 01/30/22 Pita Greene MD [address] [place] [address] PCP - General Internal Medicine 01/31/22 Ty Lilly MD Internal Medicine 03/20/22 Papito Izaguirre MD [address] [place] [address] ALEXANDER@[email or web address] Cardiology 12/04/22 documented as of this encounter Additional Source Comments The information contained in this document represents components of the legal health record. It is not the complete legal health record.[facility]
--- OUTSIDE RECORDS SUMMARY | 2025-05-31 05:32 | XMS_ITS | Encounter Summary ---
Author Organization [facility] Address [address] [place] [address] [place] [address] Phone Care Team Providers Care Auditing Clerk Name Role Phone Pita Greene MD Primary Care Provider [phone] Ty Lilly MD Unavailable [phone] Papito Izaguirre MD Unavailable [phone] Encounter Details Date Type Department Care Team (Late st Contact Info) Description 11/23/2023 Procedure Pass [facility] US [address] [place] [address] Social History Tobacco Use Types Packs/Day Years [...] [facility] [address] [place] [address] 01/08/2026 1:30 PM EDT Appointment [facility] Cardiac US [address] [place] [address] Papito Izaguirre MD [address] [place] [address] ALEXANDER@[email or web address] 01/08/2026 3:00 PM EDT Office Visit [facility] Cardiovascular Medicine 32 [facility], 5th Floor, [address] [place] [address] Papito Izaguirre MD [address] [place] [address] ALEXANDER@[email or web address] documented as of this encounter Visit Diagnoses Not on filedocumented in this encounter Additional Health Concerns Assessment Noted Time PHQ-9 Depression Total Score: 14 022 3:36 PM EST documented as of this encounter Care Teams Auditing Clerk Relationship Specialty Start Date End Date Pita Greene MD [address] [place] [address] PCP - General Internal Medicine 01/31/22 Ty Lilly MD [address] [place] [address] Internal Medicine 03/20/22 Papito Izaguirre MD [address] [place] [address] ALEXANDER@[email or web address] Cardiology 12/04/22 documented as of this encounter Additional Source Comments The information contained in this document represents components of the legal health record. It is not the complete legal health record.[facility]
--- OUTSIDE RECORDS SUMMARY | 2025-05-31 05:33 | XMS_ITS | Encounter Summary ---
Author Organization [facility] Address [address] [place] [address] [place] [address] Phone Care Team Providers Care Supervisor Remelt Name Role Phone Pita Greene MD Primary Care Provider [phone] Ty Lilly MD Unavailable [phone] Papito Izaguirre MD Unavailable [phone] Encounter Details Date Type Department Care Team (Late st Contact Info) Description 05/25/2022 Procedure Pass [facility], Ct Scan - [address] [address] Social History Tobacco Use Types Packs/Day Years [...] 8:27 PM EST Tomi Ruiz RN * [place] Suicide Severity Rating Scale (Screener/Recent Self-Report) Question [...] Description 12/26/2024 Procedure Pass [facility] US [address] [place] [address] 01/08/2026 1:30 PM EDT Appointment [facility] US [address] [place] [address] Papito Izaguirre MD [address] [place] [address] ALEXANDER@[email or web address] 01/08/2026 3:00 PM EDT Office Visit [facility] Cardiovascular Medicine [address] [place] [address], 5th Floor, [address] [place] [address] Papito Izaguirre MD [address] [place] [address] ALEXANDER@[email or web address] documented as of this encounter Visit Diagnoses Not on filedocumented in this encounter Additional Health Concerns Infection Onset Date Last Indicated Resolved Time CoV-Risk 09/10/2023 09/10/2023 09/10/2023 3:10 PM EST COVID-19 09/10/2023 09/10/2023 10/01/2023 1:23 AM EDT Assessment Noted Time PHQ-9 Depression Total Score: 14 022 3:36 PM EST documented as of this encounter Care Teams Supervisor Remelt Relationship Specialty Start Date End Date Pita Greene MD [address] [place] [address] PCP - General Internal Medicine 01/31/22 Ty Lilly MD [address] [place] [address] Internal Medicine 03/20/22 Papito Izaguirre MD [address] [place] [address] ALEXANDER@[email or web address] Cardiology 12/04/22 documented as of this encounter Additional Source Comments The information contained in this document represents components of the legal health record. It is not the complete legal health record.[facility]
--- OUTSIDE RECORDS SUMMARY | 2025-05-31 05:33 | XMS_ITS | Encounter Summary ---
Author Organization [facility] Address [address] [place] [address] [place] [address] Phone Care Team Providers Care Shirt Marker Name Role Phone Pita Greene MD Primary Care Provider [phone] Ty Lilly MD Unavailable [phone] Papito Izaguirre MD Unavailable [phone] Encounter Details Date Type Department Care Team (Late st Contact Info) Description 05/25/2022 Procedure Pass [facility], Ct Scan - [address] [address] Social History Tobacco Use Types Packs/Day Years [...] 8:27 PM EST Tomi Ruiz RN * [place] Suicide Severity Rating Scale (Screener/Recent Self-Report) Question [...] [facility] [address] [place] [address] 01/08/2026 1:30 PM EDT Appointment [facility] Cardiac US [address] [place] [address] Papito Izaguirre MD [address] [place] [address] ALEXANDER@[facility] 01/08/2026 3:00 PM EDT Office Visit [facility] Cardiovascular Medicine [address] [place] [address], 5th Floor, [address] [place] [address] Papito Izaguirre MD [address] [place] [address] ALEXANDER@[facility] documented as of this encounter Visit Diagnoses Not on filedocumented in this encounter Additional Health Concerns Infection Onset Date Last Indicated Resolved Time CoV-Risk 09/10/2023 09/10/2023 09/10/2023 3:10 PM EST COVID-19 09/10/2023 09/10/2023 10/01/2023 1:23 AM EDT Assessment Noted Time PHQ-9 Depression Total Score: 14 022 3:36 PM EST documented as of this encounter Care Teams Shirt Marker Relationship Specialty Start Date End Date Pita Greene MD [address] [place] [address] PCP - General Internal Medicine 01/31/22 Ty Lilly MD [address] [place] [address] Internal Medicine 03/20/22 Papito Izaguirre MD [address] [place] [address] ALEXANDER@[email or web address] Cardiology 12/04/22 documented as of this encounter Additional Source Comments The information contained in this document represents components of the legal health record. It is not the complete legal health record.[facility]
--- OUTSIDE RECORDS SUMMARY | 2025-05-31 05:34 | XMS_ITS | Encounter Summary ---
Author Organization [facility] Address [address] [place] [address] [place] [address] Phone Care Team Providers Care Solar Energy Specialist Name Role Phone Pita Greene MD Primary Care Provider [phone] Ty Lilly MD Unavailable [phone] Papito Izaguirre MD Unavailable [phone] Encounter Details Date Type Department Care Team (Late st Contact Info) Description 12/15/2022 Procedure Pass [facility] [address] [place] [address] Social History Tobacco Use Types Packs/Day Years [...] [facility] Card[facility] US [address] [place] [address] 01/08/2026 1:30 PM EDT Appointment [facility] Cardiac US [address] [place] [address] Papito Izaguirre MD [address] [place] [address] ALEXANDER@[facility] 01/08/2026 3:00 PM EDT Office Visit [facility] Cardiovascular Medicine 32 [facility], 5th Floor, [address] [place] [address] Papito Izaguirre MD [address] [place] [address] ALEXANDER@[facility] documented as of this encounter Visit Diagnoses Not on filedocumented in this encounter Additional Health Concerns Infection Onset Date Last Indicated Resolved Time CoV-Risk 09/10/2023 09/10/2023 09/10/2023 3:10 PM EST COVID-19 09/10/2023 09/10/2023 10/01/2023 1:23 AM EDT Assessment Noted Time PHQ-9 Depression Total Score: 14 022 3:36 PM EST documented as of this encounter Care Teams Solar Energy Specialist Relationship Specialty Start Date End Date Pita Greene MD [address] [place] [address] PCP - General Internal Medicine 01/31/22 Ty Lilly MD [address] [place] [address] Internal Medicine 03/20/22 Papito Izaguirre MD [address] [place] [address] ALEXANDER@[email or web address] Cardiology 12/04/22 documented as of this encounter Additional Source Comments The information contained in this document represents components of the legal health record. It is not the complete legal health record.[facility]
--- OUTSIDE RECORDS SUMMARY | 2025-05-31 05:34 | XMS_ITS | Encounter Summary ---
Author Organization [facility] Address [address] [place] [address] [place] [address] Phone Care Team Providers Care Lofter Name Role Phone Pita Greene MD Primary Care Provider [phone] Ty Lilly MD Unavailable [phone] Papito Izaguirre MD Unavailable [phone] Encounter Details Date Type Department Care Team (Late st Contact Info) Description 12/05/2022 [facility] Pass [facility] [address] [place] [address] Social History Tobacco Use Types Packs/Day Years [...] [facility] Card[facility] US [address] [place] [address] 01/08/2026 1:30 PM EDT Appointment [facility] Cardiac US [address] [place] [address] Papito Izaguirre MD [address] [place] [address] ALEXANDER@[email or web address] 01/08/2026 3:00 PM EDT Office Visit [facility] Cardiovascular Medicine 32 [facility], 5th Floor, [address] [place] [address] Papito Izaguirre MD [address] [place] [address] ALEXANDER@[email or web address] documented as of this encounter Visit Diagnoses Not on filedocumented in this encounter Additional Health Concerns Infection Onset Date Last Indicated Resolved Time CoV-Risk 09/10/2023 09/10/2023 09/10/2023 3:10 PM EST COVID-19 09/10/2023 09/10/2023 10/01/2023 1:23 AM EDT Assessment Noted Time PHQ-9 Depression Total Score: 14 022 3:36 PM EST documented as of this encounter Care Teams Lofter Relationship Specialty Start Date End Date Pita Greene MD [address] [place] [address] PCP - General Internal Medicine 01/31/22 Ty Lilly MD [address] [place] [address] Internal Medicine 03/20/22 Papito Izaguirre MD [address] [place] [address] ALEXANDER@[email or web address] Cardiology 12/04/22 documented as of this encounter Additional Source Comments The information contained in this document represents components of the legal health record. It is not the complete legal health record.[facility]
--- OUTSIDE RECORDS SUMMARY | 2025-05-31 05:34 | XMS_ITS | Encounter Summary ---
Author Organization [facility] Address [address] [place] [address] Phone Care Team Providers Care Trapeze Performer Name Role Phone Pita Greene MD Primary Care Provider [phone] Ty Lilly MD Unavailable [phone] Papito Izaguirre MD Unavailable [phone] Reason for Referral * MRI/CAT Scan - Closed Specialty Diagnoses / Procedures Referred By Contac t Referred To Contact Radiology Diagnoses Sensorineural hearing loss, unilateral, left ear, with unrestricted hearing on the contralateral side Dizziness and giddiness Meniere's disease, left ear Procedures MRI Brain CHG MRI BRAIN CHG MRI BRAIN CONTRAST CHG MRI BRAIN COMBO Gallito Lyle MD Phone: tel: fax: [email or web address] [address] Phone: tel: Referral ID Status Reason Start Date Expiration Date Visits Re quested Visits Authorized [id number] Closed 06/12/2022 07/12/2022 1 1 Encounter Details Date Type Department Care Team (Latest Contact Info) Description 05/22/2022 Transcribe Orders [address] [address] Gallito Lyle MD [address], [address] [place] [address] [email or web address] Sensorineural hearing loss, unilateral, left ear, [...] 8:27 PM EST Tomi Ruiz RN * [place] Suicide Severity Rating Scale (Screener/Recent Self-Report) Question [...] Contact Info) Description 12/26/2024 Procedure Pass [facility] Cardiac [address] [address] 01/08/2026 1:30 PM EDT Appointment [facility] Cardiac [address] [address] Papito Izaguirre MD [address] [address] ALEXANDER@[facility] 01/08/2026 3:00 PM EDT Office Visit [facility] Cardiovascular Medicine 32 [facility], 5th Floor, [address] [place] [address] Papito Izaguirre MD 55 [facility] [place] [address] [email or web address] documented as of this encounter Results * [...] documented as of this encounter Care Teams Trapeze Performer Relationship Specialty Start Date End Date Pita Greene MD [address] [place] [address] PCP - General Internal Medicine 01/31/22 Ty Lilly MD [address] [place] [address] Internal Medicine 03/20/22 Papito Izaguirre MD [address] [place] [address] ALEXANDER@[email or web address] Cardiology 12/04/22 documented as of this encounter Additional Source Comments The information contained in this document represents components of the legal health record. It is not the complete legal health record.[facility]
--- OUTSIDE RECORDS SUMMARY | 2025-05-31 05:34 | XMS_ITS | Encounter Summary ---
Author Organization [facility] Address [address] [place] [address] Phone Care Team Providers Care Evp Marketing Name Role Phone Pita Greene MD Primary Care Provider [phone] Ty Lilly MD Unavailable [phone] Papito Izaguirre MD Unavailable [phone] Reason for Visit * Reason Comments CR Assessment Encounter Details Date Type Department Care Team (Late st Contact Info) Description 05/21/2022 Documentation [facility] [address] [place] [address] Darya Miner RN CR Assessment Social History [...] st Contact Info) Description 12/26/2024 Procedure Pass [facility] US [address] [place] [address] 01/08/2026 1:30 PM EDT Appointment [facility] Card[facility] US [address] [place] [address] Papito Izaguirre MD [address] [place] [address] ALEXANDER@[email or web address] 01/08/2026 3:00 PM EDT Office Visit [facility] Cardiovascular Medicine 32 [facility], 5th Floor, [address] [place] [address] Papito Izaguirre MD [address] [place] [address] ALEXANDER@[email or web address] Scheduled Orders Name Type Priority Associated [...] documented as of this encounter Care Teams Evp Marketing Relationship Specialty Start Date End Date Pita Greene MD [address] [place] [address] PCP - General Internal Medicine 01/31/22 Ty Lilly MD [address] [place] [address] Internal Medicine 03/20/22 Papito Izaguirre MD [address] [place] [address] ALEXANDER@[email or web address] Cardiology 12/04/22 documented as of this encounter Additional Source Comments The information contained in this document represents components of the legal health record. It is not the complete legal health record.[facility]
--- OUTSIDE RECORDS SUMMARY | 2025-05-31 05:34 | XMS_ITS | Encounter Summary ---
Author Organization [facility] Address [address] [place] [address] Phone Care Team Providers Care Ladle Cleaner Name Role Phone iPta Greene MD Primary Care Provider [phone] Ty Lilly MD Unavailable [phone] Papito Izaguirre MD Unavailable [phone] Encounter Details Date Type Department Care Team (Late st Contact Info) Description 11/11/2022 Procedure Pass [facility] Cardiac US [address] [place] [address] Social History Tobacco Use Types Packs/Day Years [...] [facility] Card[facility] US [address] [place] [address] 01/08/2026 1:30 PM EDT Appointment [facility] Cardiac US [address] [place] [address] Papito Izaguirre MD [address] [place] [address] ALEXANDER@[facility] 01/08/2026 3:00 PM EDT Office Visit [facility] Cardiovascular Medicine 32 [facility], 5th Floor, [address] [place] [address] Papito Izaguirre MD [address] [place] [address] ALEXANDER@[facility] documented as of this encounter Visit Diagnoses Not on filedocumented in this encounter Additional Health Concerns Infection Onset Date Last Indicated Resolved Time CoV-Risk 09/10/2023 09/10/2023 09/10/2023 3:10 PM EST COVID-19 09/10/2023 09/10/2023 10/01/2023 1:23 AM EDT Assessment Noted Time PHQ-9 Depression Total Score: 14 022 3:36 PM EST documented as of this encounter Care Teams Ladle Cleaner Relationship Specialty Start Date End Date Pita Greene MD [address] [place] [address] PCP - General Internal Medicine 01/31/22 Ty Lilly MD [address] [place] [address] Internal Medicine 03/20/22 Papito Izaguirre MD [address] [place] [address] ALEXANDER@[email or web address] Cardiology 12/04/22 documented as of this encounter Additional Source Comments The information contained in this document represents components of the legal health record. It is not the complete legal health record.[facility]
--- OUTSIDE RECORDS SUMMARY | 2025-05-31 05:35 | XMS_ITS | Clinical Summary ---
Author Organization [facility] [address] [facility] Address [address] [place] [address] Phone Care Team Providers Care Pipe Line Gauger Name Role Phone Pita Greene MD Primary Care Provider Social History Tobacco Use Types Packs/Day Years [...] Screening 08/07/2023 Depression Screening 07/13/2024 COVID-19 Vaccine (1 - 2024-2 6 season) 2025 Influenza Vaccine (#1) 2025 RSV [...] patient's age to complete this topic Insurance [facility] [place] [address] [facility] Care Teams Pipe Line Gauger Relationship Specialty Start Date End Date Pita Greene MD [address] [place] [address] PCP - General Internal Medicine 09/21/24
--- OUTSIDE RECORDS SUMMARY | 2025-05-31 05:35 | XMS_ITS | Encounter Summary ---
Author Organization [facility] Address [address] [place] [address] [place] [address] Phone Care Team Providers Care Water System Operator Name Role Phone Pita Greene MD Primary Care Provider [phone] Ty Lilly MD Unavailable [phone] Papito Izaguirre MD Unavailable [phone] Encounter Details Date Type Department Care Team (Late st Contact Info) Description 03/14/2025 Procedure Pass [facility], Ct Scan - [address] [address] Social History Tobacco Use Types Packs/Day Years [...] [facility] Cardiac [address] [address] 01/08/2026 1:30 PM EDT Appointment [facility] Cardiac US [address] [place] [address] Papito Izaguirre MD [address] [place] [address] ALEXANDER@[facility] 01/08/2026 3:00 PM EDT Office Visit [facility] Cardiovascular Medicine [address] [place] [address], 5th Floor, [address] [place] [address] Papito Izaguirre MD [address] [place] [address] ALEXANDER@[facility] documented as of this encounter Visit Diagnoses Not on filedocumented in this encounter Additional Health Concerns Assessment Noted Time PHQ-9 Depression Total Score: 14 022 3:36 PM EST documented as of this encounter Care Teams Water System Operator Relationship Specialty Start Date End Date Pita Greene MD [address] [place] [address] PCP - General Internal Medicine 01/31/22 Ty Lilly MD [address] [place] [address] Internal Medicine 03/20/22 Papito Izaguirre MD [address] [place] [address] ALEXANDER@[email or web address] 12/04/22 documented as of this encounter Additional Source Comments The information contained in this document represents components of the legal health record. It is not the complete legal health record.[facility]
--- OUTSIDE RECORDS SUMMARY | 2025-05-31 05:37 | XMS_ITS | Patient Health Record ---
Author Organization [facility] [address] Address [address] [place] [address] Care Team Providers Care Dust Mixer Name Role Phone Pita Greene Primary Care Provider UnavailSHRUTHI Gunter Unavailable [phone] Andrea Mckeon Unavailable [phone] Allergies Allergen (clinical drug ingredient) Drug/Non Drug [...] Results Component Value Reference Range Flag Notes Errol Alejandre LP Default Reviewed date:04/28/2025 09:22:53 AM Interpretation: Performing Lab:[facility], [address] [place] [address], [place], Phone - [phone], Director - Darryn Notes/Report: Errol Alejandre LP Default A hand-written panel/profile was received from your office. In accordance with the [facility] Ambiguous Test Code Policy dated January 2003, we have completed your order by using the closest currently or formerly recognized AMA panel. We have assigned Lipid Panel, Test Code #[id number] to this request. If this is not the testing you wished to receive on this specimen, please contact the [facility] Client [facility]quiry[facility]Technical Services Department to clarify the test order. We appreciate your business. Comp. Metabolic Panel (14)-[id number] Reviewed date:04/28/2025 09:22:53 AM Interpretation: Performing Lab:[facility], [place], Phone - [phone], Director - Darryn Notes/Report: Glucose 110 70-99 [...] IU/L ALT (SGPT) 19 0-32 IU/L Lipid Panel-[id number] Reviewed date:04/28/2025 09:22:53 AM Interpretation: Performing Lab:[facility], [facility], [place], Phone - [phone], Director - Darryn Notes/Report: Cholesterol, Total 214 100-199 mg/dL H Triglycerides 67 0-149 mg/dL HDL Cholesterol 72 >39 mg/dL VLDL Cholesterol Vance 12 5-40 mg/dL LDL Chol Calc ([facility]) 130 0-99 mg/dL H Insulin-[id number] Reviewed date:04/28/2025 09:22:53 AM Interpretation: Performing Lab:[facility], [address] [facility], Phone - [phone], Director - Darryn Notes/Report: Insulin 7.1 2.6-24.9 uIU/mL Errol Alejandre CMP14 Default A hand-written panel/profile was received from your office. In accordance with the [facility] Ambiguous Test Code Policy dated January 2003, we have completed your order by using the closest currently or formerly recognized AMA panel. We have assigned Comprehensive Metabolic Panel (14), Test Code #[id number] to this request. If this is not the testing you wished to receive on this specimen, please contact the [facility] Department to clarify the test order. We appreciate your business. [id number] Reviewed date:04/28/2025 09:22:53 AM Interpretation: Performing [facility], [address] [place] [address], Phone - [phone], Director - Darryn Notes/Report: TSH 1.670 0.450-4.500 uIU/mL Vitamin [id number] Reviewed date:04/28/2025 09:22:53 AM Interpretation: Performing Lab:[facility] [place], [address] [place] [address], [place], Phone - [phone], Director - Darryn Notes/Report: Vitamin B12 193 538-0250 pg/mL Hemoglobin [id number] Reviewed date:04/28/2025 09:22:53 AM Interpretation: Performing [facility], [address] [place] [address], [place], Phone - [phone], Director - Darryn Notes/Report: Hemoglobin A1c 5.6 4.8-5.6 % . Prediabetes: 5.7 - 6.4 Diabetes: >6.4 Glycemic control for adults with diabetes: <7.0 Reason For Referral Diagnosis 1 Dietary counseling ( Z71.3) Referring Provider First Name Pita Referring Provider Last Name [facility] Referred Organization [facility] [facility] Referred Provider SHRUTHI VALERIO Referred Address [address] ,[place], [place],[address], Referred Provider Specialty Weight Manag ement Referral [...] a day Active Social History Section Notes: Benefits Technician/ Technology Sales Specialist denies use of tobacco denies use of alcohol denies use of other drugs Benefits Technician/ Technology Sales Specialist denies use of tobacco denies use of alcohol denies use of other drugs Problems Problem Type SNOMED Code ICD Code Onset Dates Problem Status W/U Status Risk Notes Problem Vitamin B>12< deficiency anaemia (41673670) Vitamin B12 deficiency anemia, unspecified (D51.9) Active confirmed Problem Type II diabetes mellitus without complication (833386983) Type 2 diabetes mellitus without complications (E11.9) Active confirmed Problem Acquired hypothyroidism (609793190) Acquired hypothyroidism (E03.9) Active confirmed Problem Overweight (837008389) Overweight (BMI 25.0-29.9) (E66.3) Active confirmed Problem Abnormal metabolic state due to diabetes mellitus (695117009) Abnormal metabolic state due to diabetes mellitus (E11.9) Active confirmed Vital Signs Heart Rate 91 /min 05/09/2025 Oximetry 98 % 05/09/2025 Blood pressure diastolic 80 mm Hg 05/09/2025 Height 66 in 05/09/2025 Blood pressure systolic 112 mm Hg 05/09/2025 Weight 169.3 lbs 05/09/2025 BMI 27.32 kg/m2 05/09/2025 Encounters Encounter Location Date Provider Diagnosis [facility] [address] [place], [place] 04/26/2025 Andrea Sachse Overweight (BMI 25.0-29.9) E66.3 ; BMI 27.0-27.9,adult Z68.27 ; Dietary counseling Z71.3 ; Type 2 diabetes mellitus without complications E11.9 ; Depression F32.A and Blood pressure check Z01.[address] [facility] [address] [place] [address] 05/09/2025 Andrea Mike Overweight (BMI 25.0-29.9) E66.3 ; BMI 27.0-27.9,adult Z68.27 ; Dietary counseling Z71.3 ; Type 2 diabetes mellitus without complications E11.9 ; Depression F32.A and Blood pressure check Z01.[address] [facility] [address] [place] [address] 04/26/2025 Andrea Sachse [facility] [address] [place] [address] 05/09/2025 Andrea Sachse Overweight (BMI 25.0-29.9) E66.3 [facility] [address] [place] [address] 04/26/2025 Andrea Sachse [facility] [address] [place] [address] 04/27/2025 Andrea Sachse [facility] [address] [place] [address] 04/28/2025 Andrea Mike [facility] [address] [place] [address] 04/28/2025 SHRUTHI VALERIO [facility] [address] [place] [address] 04/28/2025 SHRUTHI VALERIO [facility] [address] [place] [address] 05/01/2025 Andrea Mike [facility] [address] [place] [address] 05/09/2025 SHRUTHI VALERIO [facility] [address] [place] [address] 05/09/2025 Andrea Mike [facility] [address] [place] [address] 05/10/2025 Andrea Sachse [facility] [address] [place] [address] 05/10/2025 Andrea Mike [facility] [address] [place] [address] 05/10/2025 Andrea Sachse [facility] [address] [place] [address] 05/10/2025 SHRUTHI VALERIO Assessments Encounter Date Diagnosis (ICD Code) Assessment Notes Treatment Notes Treatment Clinical Notes Section Notes 05/09/2025 Overweight (BMI 25.0-29.9) (ICD-10 - E66.3) [...] Dictation was accomplished with the use of To8to voice recognition software, prone to medical misidentifications and grammatical errors. This is unintentional and the practitioner does try to identify and correct these, but some could still be present. Please do not hesitate to contact practitioner for clarification. 04/26/2025 BMI 27.0-27.9,adult (ICD-10 - Z68.27) 04/26/2025: [...] Consider using apps like 7 minute excercise, [employer]pal, lose it, stick as needed for self-monitoring and weight management. Consider group exercises. Consider hiring a life trainer. Regular exercise is hernández to sustainable health [...] counseling and psychiatry and Dr Kumar at [facility]. We would like to cover regular topics [...] Dictation was accomplished with the use of To8to voice recognition software, prone to medical misidentifications [...] Consider using apps like 7 minute excercise, myBuzzeropal, lose it, stick as needed for self-monitoring and weight management. Consider group exercises. Consider hiring a life trainer. Regular exercise is hernández to sustainable health [...] counseling and psychiatry and Dr Kumar at [facility]. We would like to cover regular topics [...] Dictation was accomplished with the use of To8to voice recognition software, prone to medical misidentifications [...] management. Consider group exercises. Consider hiring a life trainer. Regular exercise is hernández to sustainable health [...] counseling and psychiatry and Dr Kumar at [facility]. We would like to cover regular topics [...] Dictation was accomplished with the use of To8to voice recognition software, prone to medical misidentifications [...] Provider can order medication once approval received. 05/09/2025 BMI 27.0-27.9,adult (ICD-10 - Z68.27) 05/09/2025: [...] Dictation was accomplished with the use of To8to voice recognition software, prone to medical misidentifications and grammatical errors. This is unintentional and the practitioner does try to identify and correct these, but some could still be present. Please do not hesitate to contact practitioner for clarification. 04/26/2025 Type 2 diabetes mellitus without complications [...] Consider using apps like 7 minute excercise, myfitShotSpotterpal, lose it, stick as needed for self-monitoring and weight management. Consider group exercises. Consider hiring a life trainer. Regular exercise is hernández to sustainable health [...] counseling and psychiatry and Dr Kumar at [facility]. We would like to cover regular topics [...] Dictation was accomplished with the use of To8to voice recognition software, prone to medical misidentifications [...] despite. She has had an experience with [employer] for which she discontinued for fear of [...] Dictation was accomplished with the use of To8to voice recognition software, prone to medical misidentifications and grammatical errors. This is unintentional and the practitioner does try to identify and correct these, but some could still be present. Please do not hesitate to contact practitioner for clarification. 05/09/2025 Type 2 diabetes mellitus without complications [...] Dictation was accomplished with the use of To8to voice recognition software, prone to medical misidentifications [...] level. Consider using apps like 7 minute exceMiradaise, [employer], lose it, stick as needed for self-monitoring and weight management. Consider group exercises. Consider hiring a life trainer. Regular exercise is hernández to sustainable health [...] counseling and psychiatry and Dr Kumar at [facility]. We would like to cover regular topics [...] Dictation was accomplished with the use of To8to voice recognition software, prone to medical misidentifications [...] management. Consider group exercises. Consider hiring a life trainer. Regular exercise is hernández to sustainable health [...] counseling and psychiatry and Dr Kumar at [facility]. We would like to cover regular topics [...] Dictation was accomplished with the use of To8to voice recognition software, prone to medical misidentifications [...] on lifestyle changes. I will send in [employer] as I believe she is a good [...] Dictation was accomplished with the use of To8to voice recognition software, prone to medical misidentifications [...] on lifestyle changes. I will send in [employer] as I believe she is a good [...] Dictation was accomplished with the use of To8to voice recognition software, prone to medical misidentifications [...] Mckeon, 06/13/2025 09:15:00 AM, [address], [place], [address], Insurance Providers Payer Name Payer Address Payer Phone Subscriber Number Group Number Insured Name Patient Relationship to Insured Coverage Start Date Coverage End Date [facility] [employer] [address] [place] [address] [id number] Oliver Juliana Self - patient is the insured 1 Medical (General) History Medical History History ICD Code weight gain/loss arthritis hearing problems thyroid disease kidney stones depression hemorrhoids liver disease Prediabetes R73.03 Surgical History Surgery Date(Month/Year) tonsils hernia wisdom teeth
--- NOTE | 2025-05-31 09:26 | MHC.AU.HA3 ---
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 No appointment scheduled, demanded to be seen. Waited in waiting room until I was available. Did not want to drop ROJAS off with front office staff, wanted to avoid middle man. Wants ROJAS remade with request to replace all electronics and change color to pink shell and pink faceplate. Sent impression and ROJAS to [facility]. Recommendations: Patient will be contacted when materials have arrived. Diagnosis Code(s): Primary Diagnosis: H90.42 SNHL Unilateral Left Side, W/Unrestricted Contralateral Hearing Signature: Provider: Rosa Maria Estevez, [facility]
== END 2025-05-30 13:12 | disposition home or self-care (01) ==
LOC: HO.HAP 13:11
DX: Z13.89 Encounter for screening for other disorder (principal)